=== PATIENT | female | born 1985 | race Caucasian/White ===

== ENCOUNTER 2017-07-24 07:30 | Emergency (ER) | payer OTHER ==
[2017-07-24 07:47] VITALS: BP 108/61
--- NOTE | 2017-07-24 08:09 | UC ---
Upper Extremity HPI - HPI Summary HPI Summary: PT WOKE UP THIS MORNING IN USUAL STATE OF HEALTH. WENT TO WORK AT 5AM. 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 NO LOC. ABOUT 30 MINUTES LATER RIGHT FOREARM WENT NUMB AND TINGLY. PT REPORTS SHE WAS UNABLE TO CARRY THINGS FOR CONCERN SHE WOULD DROP THEM. AT TIME OF EXAM LIGHTHEADEDNESS AND NAUSEA HAVE RESOLVED BUT RIGHT FOREARM PARESTHESIAS PERSIST. PT DENIES SOB OR CP. HAS HAD URI SX OF COUGH AND CHEST CONGESTION FOR ABOUT 3 WEEKS. - History of Current Complaint Chief Complaint: UCGeneralIllness Stated Complaint: ARM NUMBNESS Time Seen by Provider: 07/24/17 07:47 Hx Obtained From: Patient Hx Last Menstrual Period: 07/03/17 Onset/Duration: Sudden Onset, Lasting Hours, Still Present Severity Initially: Moderate Severity Currently: Moderate Pain Intensity: 0 Pain Scale Used: 0-10 Numeric Aggravating Factor(s): Nothing Alleviating Factor(s): Nothing Associated Signs And Symptoms: Positive: Weakness, Numbness/Tingling Related History: Dominant Hand Right - Allergies/Home Medications Allergies/Adverse Reactions: Allergies Allergy/AdvReac Type Severity Reaction Status Date / Time Bupropion [From Wellbutrin] Allergy Severe ANXIETY/PANIC Verified 07/24/17 07:37 ATTACK Azithromycin Allergy Intermediate Hives Verified 07/24/17 07:37 Ciprofloxacin [From Cipro] Allergy Unknown Unknown Verified 07/24/17 07:37 Reaction Details Adhesive Tape Allergy Rash Verified 07/24/17 07:37 PMH/Surg Hx/FS Hx/Imm Hx Previously Healthy: Yes Other History Of: Negative For: Anticoagulant Therapy - Surgical History Surgical History: Yes Surgery Procedure, Year, and Place: CHOLECYSTECTOMY 2007, APPENDECTOMY 1986, C- SECTIONS [id number],2014 LEFT ANKLE 1996 - Family History Known Family History: Positive: Cardiac Disease, Hypertension, Diabetes - Social History Alcohol Use: None Alcohol Amount: states that she has consumed 3 times, and something bad always happens. Substance Use Type: None Substance Use Comment - Amount & Last Used: "once in a while" Unsure of last time used Smoking Status (MU): Light Every Day Tobacco Smoker Amount Used/How Often: 1P/ 3days Have You Smoked in the Last Year: No - Immunization History Most Recent Influenza Vaccination: UNK Most Recent Tetanus Shot: UNK Most Recent Pneumonia Vaccination: UNK Review of Systems Constitutional: Negative Skin: Negative Respiratory: Negative Cardiovascular: Negative Gastrointestinal: Negative Neurovascular: Decreased Sensation Musculoskeletal: Decreased ROM Neurological: Weakness, Paresthesia, Numbness All Other Systems Reviewed And Are Negative: Yes Physical Exam Triage Information Reviewed: Yes Appearance: Well-Appearing, No Pain Distress, Well-Nourished, Obese Vital Signs: Initial Vital Signs Temp 98.1 F 07/24/17 07:38 Pulse 76 07/24/17 07:38 Resp 20 07/24/17 07:38 BP 108/61 07/24/17 07:38 Pulse Ox 100 07/24/17 07:38 Vital Signs Reviewed: Yes Eyes: Positive: Conjunctiva Clear ENT: Positive: Hearing grossly normal Neck: Positive: Supple Respiratory Exam: Normal Cardiovascular Exam: Normal Abdomen Description: Positive: Soft Musculoskeletal: Positive: No Edema, ROM Limited @ - RIGHT HAND - UNABLE TO FULLY FLEX OR EXTEND FINGERS Neurological: Positive: Alert, Other: - CN II-XII GROSSLY INTACT BILATERALLY. NEG PRONATOR DRIFT. FINGER TO NOSE INTACT BILATERALLY. HEEL TO SHANKAR INTACT BILATERALLY. RAPID ALTERNATING MVMTS INTACT. 4/5 STRENGTH IN RUE. POSITIVE TINELS AND PHALENS ON RIGHT. Psychological: Positive: Age Appropriate Behavior Skin: Negative: rashes Diagnostics - EKG Cardiac Rate: NL - 71 BPM Cardiac Rhythm: Sinus: Normal Ectopy: None ST Segment: Normal Upper Extremity Course/Dx - Course Course Of Treatment: EKG UNREMARKABLE. UNCLEAR ETIOLOGY OF SX. PT WITH POSITIVE TINEL AND PHALENS INDICATIVE OF CARPAL TUNNEL BUT GIVEN SUDDEN ONSET AND PERSISTENCE OF SX ALONG WITH ASSOCIATED N/V AND LIGHTHEADEDNESS WITH SEND TO ER FOR FURTHER EVAL. - Differential Dx/Diagnosis Provider Diagnoses: RUE PARESTHESIAS Discharge - Discharge Plan Condition: Stable Disposition: OTHER Discharge Disposition Comment: TO [facility] BY PRIVATE CAR Patient Education Materials: Paresthesia (ED) Referrals: Ronal Be MD [Primary Care Provider] - If Needed Additional Instructions: UNCLEAR ETIOLOGY OF YOUR SYMPTOMS. EKG UNREMARKABLE. GO DIRECTLY TO THE ER FROM HERE FOR FURTHER EVALUATION.
== END 2017-07-24 08:10 ==
LOC: UCEAST 07:30
DX: R20.2 Paresthesia of skin (principal); R11.2 Nausea with vomiting, unspecified; R53.1 Weakness; Z88.1 Allergy status to other antibiotic agents; Z90.49 Acquired absence of other specified parts of digestive tract; F17.210 Nicotine dependence, cigarettes, uncomplicated
CPT/HCPCS: 93005; 99212; G0463

== ENCOUNTER 2017-07-24 08:36 | Emergency (ER) | payer OTHER ==
[2017-07-24 09:26] LABS: Hematocrit 33 % (35-47); Hemoglobin 10.7 g/dl (12.0-16.0); Mean Corpuscular HGB Conc 32 g/dl (31-36); Mean Corpuscular Hemoglobin 27 pg (27-31); Mean Corpuscular Volume 85 fL (80-97); Mean Platelet Volume 9 um3 (7.4-10.4); Red Blood Count 3.92 10^6/ul (4.0-5.4); Red Cell Distribution Width 17 % (10.5-15); White Blood Count 7.6 10^3/ul (3.5-10.8)
[2017-07-24 09:44] LABS: Albumin 4.1 g/dL (3.2-5.2); BUN/Creatinine Ratio 18.3 (8-20); C Reactive Protein 3.55 mg/L (< 5.00); Calcium 9.1 mg/dL (8.6-10.3); EGFR African American 121.9 (>60); EGFR Non-African American 94.8 (>60); Globulin 3.1 g/dL (2-4); Potassium 4.2 mmol/L (3.5-5.0); Total Bilirubin 0.3 mg/dL (0.2-1.0); Total Protein 7.2 g/dL (6.4-8.9)
--- NOTE | 2017-07-24 10:03 | RAD ---
INDICATION: RIGHT upper extremity numbness and pain. COMPARISON: May 20, 2016 CT. TECHNIQUE: Multidetector CT images foramen magnum to lung apices without contrast. Multiplanar reformation. REPORT: Normal vertebral alignment accounting for exam positioning without spondylolisthesis or subluxation at any level. Negative for cervical vertebral body or posterior element fracture. 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 Negative for paravertebral hematoma. Preserved disc spaces throughout. No CT suggestion of acquired spinal stenosis. IMPRESSION: Negative CT of the cervical spine. No CT evidence for degenerative arthropathy or acquired spinal stenosis.
[2017-07-24 10:28] LABS: Urine Bacteria 1+ (Absent); Urine Bilirubin Negative (Negative); Urine Glucose Negative (Negative); Urine Nitrite Negative (Negative)
--- NOTE | 2017-07-24 10:53 | RAD ---
HISTORY: Right upper extremity weakness and numbness COMPARISONS: Head CT dated December 27, 2009 TECHNIQUE: The following sequences were obtained of the head: Sagittal T1-weighted images, axial T2-weighted images, axial FLAIR images, axial susceptibility weighted images, axial T1-weighted images. Additionally, axial diffusion-weighted images were obtained with calculated apparent diffusion coefficients. FINDINGS: HEMORRHAGE/INFARCT: There is no hemorrhage or acute infarct. MASSES/SHIFT: There is no mass or shift. EXTRA-AXIAL SPACES/MENINGES: There are no extra-axial fluid collections. SULCI AND VENTRICLES: The sulci and ventricles are normal in size and position for the patient's stated age. CEREBRUM: There are no focal parenchymal abnormalities. BRAINSTEM: There are no focal parenchymal abnormalities. CEREBELLUM: There are no focal parenchymal abnormalities. The cerebellar tonsils are normal in size and position. SELLA: The sella is normal. PINEAL: The pineal region is clear. CP ANGLE/TEMPORAL BONES: The labyrinthine structures are grossly normal. VESSELS: Normal flow-voids are noted within the visualized vertebral vasculature. DIFFUSION ABNORMALITIES: There are no diffusion abnormalities. PARANASAL SINUSES/MASTOIDS: The paranasal sinuses are clear. ORBITS: The orbits are unremarkable. BONES AND SOFT TISSUE: No bone or soft tissue abnormalities are noted. OTHER: None IMPRESSION: NORMAL BRAIN
[2017-07-24 11:27] VITALS: BP 109/57
--- NOTE | 2017-07-24 17:18 | CONS ---
CONSULTATION REPORT: DATE OF CONSULT: 07/24/17 - EMERGENCY DEPT PATIENT OF: Dr. Duron and Dr. Ronal Be. HISTORY OF PRESENT ILLNESS: This is a 31-year-old right-handed woman who, at 5 this morning, had an episode of vomiting and then further vomiting within an hour. She developed right-sided neck pain, and developed numbness and weakness in her right hand and forearm. The numbness was in the forearm to the hand in all dermatomes. The weakness was both with planer feeder, wrist extension, and finger spreading. She has had the neck pain, but no headache. No dizziness. No speech problems. No visual symptoms. She has had no prior stroke or other symptoms. PAST SURGICAL HISTORY: She has had in the past. MEDICATIONS: No medications at home. ALLERGIES: She is allergic to WELLBUTRIN, , and CIPRO, as well as ADHESIVE TAPE. SOCIAL HISTORY: She does not smoke, drink, or use drugs. REVIEW OF SYSTEMS: Negative in all 14 spheres other than the HPI. PHYSICAL EXAM: Temperature 98, pulse 71, respirations 17, blood pressure 109/ 57. She was alert and oriented with normal speech and comprehension. Fundi were benign. Cranial nerves II through XII intact. Motor exam shows 5/5 strength except in her right hand. She had 5-/5 wrist and finger adduction, 5-/ 5 abduction. Her planer feeder was inconsistent. She had a very strong planer feeder when I tried to pull away and it appeared full on the right hand, but when I tried to wiggle my fingers in her hand, she was quite loose. She had decreased sensation in nondermatomal distribution in her forearm and in all fingers of her right hand. Reflexes were 2 and equal downgoing toes. Chest: Clear. Cardiovascular: Regular rate and rhythm. Abdomen: Soft, with positive bowel sounds. DIAGNOSTIC STUDIES/LAB DATA: Hematocrit 33, white count 7.6, platelets are normal. Normal chemistries. UA had 2+ leuk esterase. She had an MRI scan, which was normal. CT scan of her C-spine, which was negative. IMPRESSION AND PLAN: I discussed with Dr. Duron that most likely she had neck pain following her vomiting from the force of the vomiting. This could have caused some of the neck pain going into her upper shoulder. It is possible that the weakness in her hand is secondary to that. She had some mild weakness in wrist and finger abduction, but there are some inconsistencies on exam as described with her planer feeder. The pain was not severe and her CT scan of her C-spine was negative, so she will be going home. The MRI scan had been obtained because it was conceivable that these were some stroke-like symptoms with vomiting indicating posterior fossa ischemia, since it occurred without fever, diarrhea, but the MRI scan was normal. No further workup needs to be done. In the pattern of her weakness flare, her planer feeder strength appeared intact, but she had difficulty with finger extension to a modest degree. This is more like a peripheral problem. I recommended that if her symptoms persist, I would see her in the near future and do an EEG at that time. Thank you for sharing her case. [id number]/GIOVANNA #: [id number] NAHID
--- NOTE | 2017-07-25 17:33 | ED ---
Prem Diaz Thomas, scribed for Aureliano Duron MD on 07/24/17 at 0908 . Complex/Multi-Sys Presentation - HPI Summary HPI Summary: The pt is a 31 y/o F referred from [facility] [place] c/o right arm numbness from her elbow down to her fingers that began today at 05:30. This numbness was intermittent from 05:30 and has been constant since 07:30. At 05:30, the patient had sudden- onset nausea and vomiting. She also complains of a sharp shooting pain on her right arm above her elbow and below her shoulder. The pt rates the pain 04/06. Pt additionally c/o neck pain. Pt denies near-syncope. At her job at [employer], she sometimes does repetitious movements with her hands. - History Of Current Complaint Hx Obtained From: Patient Onset/Duration: Lasting Hours - onset of numbness today at 05:30, Still Present Timing: Constant - since 07:30 Aggravating Factor(s): None. Alleviating Factor(s): None. Associated Signs And Symptoms: Positive: Other - Right arm numbness, nausea, vomitting, right arm pain, neck pain; NEGATIVE: near-syncope - Allergies/Home Medications Allergies/Adverse Reactions: Allergies Allergy/AdvReac Type Severity Reaction Status Date / Time Bupropion [From Wellbutrin] Allergy Severe ANXIETY/PANIC Verified 07/24/17 07:37 ATTACK Azithromycin Allergy Intermediate Hives Verified 07/24/17 07:37 Ciprofloxacin [From Cipro] Allergy Unknown Unknown Verified 07/24/17 07:37 Reaction Details Adhesive Tape Allergy Rash Verified 07/24/17 07:37 PMH/Surg Hx/FS Hx/Imm Hx Previously Healthy: No Endocrine/Hematology History: Denies: Hx Anticoagulant Therapy, Hx Diabetes, Hx Thyroid Disease Cardiovascular History: Denies: Hx Hypertension, Hx Pacemaker/ICD Respiratory History: Denies: Hx Asthma, Hx Chronic Obstructive Pulmonary Disease (COPD) GI History: Denies: Hx Ulcer History: Denies: Hx Renal Disease Sensory History: Denies: Hx Hearing Aid Neurological History: Denies: Hx Dementia, Hx Seizures Psychiatric History: Reports: Hx Anxiety - "just after miscarriage", Hx Depression - "I'm not depressed. I'm just overwhelmed and stressed out.", Hx Inpatient Treatment - [facility], Pending Sale To [facility] [place] [facility]. 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 [id number] - Surgical History Surgery Procedure, Year, and Place: CHOLECYSTECTOMY 2007, APPENDECTOMY 1986, C- SECTIONS ,2014 LEFT ANKLE 1996 - Immunization History Immunizations Up to Date: Yes Infectious Disease History: No Infectious Disease History: Denies: Hx Clostridium Difficile, Hx Hepatitis, Hx Human Immunodeficiency Virus (HIV), Hx of Known/Suspected MRSA, Hx Shingles, Hx Tuberculosis, Hx Known/ Suspected VRE, Hx Known/Suspected VRSA, History Other Infectious Disease, Traveled Outside the [place] in Last 30 Days - Family History Known Family History: Positive: Cardiac Disease, Hypertension, Diabetes, Other - CVA - Social History Alcohol Use: None Hx Substance Use: No Substance Use Type: Reports: None Hx Tobacco Use: Yes Smoking Status (MU): Light Every Day Tobacco Smoker Amount Used/How Often: 1P/ 3days Have You Smoked in the Last Year: No Review of Systems Negative: Fever Positive: Other - R arm pain, neck pain Neurological: Other - NEGATIVE: near-syncope Positive: Numbness - right arm numbness below elbow All Other Systems Reviewed And Are Negative: Yes Physical Exam - Summary Physical Exam Summary: VITAL SIGNS: Reviewed. GENERAL: Patient is a well-developed and nourished female who is lying comfortable in the stretcher. Patient is not in any acute respiratory distress. HEAD AND FACE: No signs of trauma. No ecchymosis, hematomas or skull depressions. No sinus tenderness. EYES: PERRLA, EOMI x 2, No injected conjunctiva, no nystagmus. No photophobia. EARS: Hearing grossly intact. Ear canals and tympanic membranes are within normal limits. MOUTH: Oropharynx within normal limits. NECK: Supple, trachea is midline, no adenopathy, no JVD, no carotid bruit, no c- spine tenderness, neck with full ROM. No meningeal signs, no Kernig's or brudzinskis signs. CHEST: Symmetric, no tenderness at palpation LUNGS: Clear to auscultation bilaterally. No wheezing or crackles. CVS: Regular rate and rhythm, S1 and S2 present, no murmurs or gallops appreciated. ABDOMEN: Soft, non-tender. No signs of distention. No rebound no guarding, and no masses palpated. Bowel sounds are normal. EXTREMITIES: FROM in all major joints, no edema, no cyanosis or clubbing. NEURO: Alert and oriented x 3. No acute neurological deficits. Speech is normal and follows commands. She has numbness on her right arm from the elbow to the hand. She is more numb on the dorsal aspect than the ventral aspect of the hand and forearm. She is weak in the right upper extremity. She has some tenderness in her neck. SKIN: Dry and warm GCS: 15 Triage Information Reviewed: Yes Vital Signs On Initial Exam: Initial Vitals Temp Pulse Resp BP Pulse Ox 98.9 F 79 20 132/76 100 07/24/17 08:38 07/24/17 08:38 07/24/17 08:38 07/24/17 08:38 07/24/17 08:38 Vital Signs Reviewed: Yes - [place] Coma Scale Coma Scale Total: 15 Diagnostics - Vital Signs Vital Signs Temp Pulse Resp BP Pulse Ox 07/24/17 08:38 98.9 F 79 20 132/76 100 - Laboratory Lab Results: Lab Results 07/24/17 07/24/17 07/24/17 Range/Units 09:05 09:05 10:03 WBC 7.6 (3.5-10.8) 10^3/ul RBC 3.92 L (4.0-5.4) 10^6/ul Hgb 10.7 L (12.0-16.0) g/dl Hct 33 L (35-47) % MCV 85 (80-97) fL MCH 27 (27-31) pg MCHC 32 (31-36) g/dl RDW 17 H (10.5-15) % Plt Count 322 (150-450) 10^3/ul MPV 9 (7.4-10.4) um3 Neut % (Auto) 64.9 (38-83) % Lymph % (Auto) 25.5 (25-47) % Putnam % (Auto) 7.6 (1-9) % Eos % (Auto) 1.4 (0-6) % Baso % (Auto) 0.6 (0-2) % Absolute Neuts (auto) 4.9 (1.5-7.7) 10^3/ul Absolute Lymphs (auto) 1.9 (1.0-4.8) 10^3/ul Absolute Monos (auto) 0.6 (0-0.8) 10^3/ul Absolute Eos (auto) 0.1 (0-0.6) 10^3/ul Absolute Basos (auto) 0 (0-0.2) 10^3/ul Absolute Nucleated RBC 0 10^3/ul Nucleated RBC % 0 Sodium 133 (133-145) mmol/L Potassium 4.2 (3.5-5.0) mmol/L Chloride 101 (101-111) mmol/L Carbon Dioxide 26 (22-32) mmol/L Anion Gap 6 (2-11) mmol/L BUN 13 (6-24) mg/dL Creatinine 0.71 (0.51-0.95) mg/dL Est GFR ( Amer) 121.9 (>60) Est GFR (Non-Af Amer) 94.8 (>60) BUN/Creatinine Ratio 18.3 (8-20) Glucose 103 H (70-100) mg/dL Calcium 9.1 (8.6-10.3) mg/dL Total Bilirubin 0.30 (0.2-1.0) mg/dL AST 10 L (13-39) U/L ALT 10 (7-52) U/L Alkaline Phosphatase 59 (34-104) U/L C-Reactive Protein 3.55 (< 5.00) mg/L Total Protein 7.2 (6.4-8.9) g/dL Albumin 4.1 (3.2-5.2) g/dL Globulin 3.1 (2-4) g/dL Albumin/Globulin Ratio 1.3 (1-3) Urine Color Yellow Urine Appearance Cloudy Urine pH 6.0 (5-9) Ur Specific Lawn 1.012 (1.010-1.030) Urine Protein Negative (Negative) Urine Ketones Negative (Negative) Urine Blood 1+ H (Negative) Urine Nitrate Negative (Negative) Urine Bilirubin Negative (Negative) Urine Urobilinogen Negative (Negative) Ur Leukocyte Esterase 2+ H (Negative) Urine WBC (Auto) Trace(0-5/hpf) (Absent) Urine RBC (Auto) Trace(0-2/hpf) (Absent) Ur Squamous Epith Cells Present H (Absent) Urine Bacteria 1+ H (Absent) Urine Glucose Negative (Negative) Result Diagrams: 07/24/17 09:05 07/24/17 09:05 Lab Statement: Any lab studies that have been ordered have been reviewed, and results considered in the medical decision making process. - CT CT C-Spine CT Interpretation: No Acute Changes - Negative CT of the cervical spine. No CT evidence for degenerative arthropathy or acquired spinal stenosis. ED Physician has reviewed this report and agrees. CT Interpretation Completed By: Radiologist - Additional Comments Diagnostic Additional Comments: MRI Brain without contrast. Interpreted by radiologist. Impression: normal brain. ED physician has read this report and agrees. Complex Multi-Symp Course/Dx Assessment/Plan: The pt is a 31 y/o F referred from [facility] [place] c/o right arm numbness from her elbow down to her fingers that began today at 05:30. This numbness was intermittent from 05:30 and has been constant since 07:30. At 05:30, the patient had sudden-onset nausea and vomiting. She also complains of a sharp shooting pain on her right arm above her elbow and below her shoulder. The pt rates the pain 7/10. Pt additionally c/o neck pain. Pt denies near-syncope. At her job at [employer], she sometimes does repetitious movements with her hands. After the patients physical exam, I discussed the case with Dr. Cole, who came to the ED to examine the patient. After his exam, he recommends that the patient get a CT C-Spine and MRI Brain without contrast. Both the CT C-Spine and the MRI Brain are negative. At this point, Dr. Cole recommends that the patient be discharged home with follow up at his office for possible EMG and further imaging. At this point, the neurological exam before discharge is normal ; therefore, the patient will be discharged home with follow up by primary care provider and neurology. The patient understands and agrees. - Diagnoses Differential Diagnoses/HQI/PQRI: Cardiac Ischemia, CVA, Other - TIA, SCS Provider Diagnoses: Paresthesia - Physician Notifications Discussed Care Of Patient With: Nic Cole Time Discussed With Above Provider: 09:05 Instructed by Provider To: Other - I consulted with Dr. Cole, neurology, regarding patient care. He came to the emergency department to evaluate the patient. After his evaluation, he recommends a CT C-Spine and MRI of the brain. Discharge - Discharge Plan Condition: Stable Disposition: HOME Patient Education Materials: Paresthesia (ED) Referrals: Nic Cole MD [Medical Doctor] - 3 Days Additional Instructions: Follow up with Dr. Cole, neurology, in three days. Return to the emergency department for any new or worsening symptoms. The documentation as recorded by the Prem ca Thomas accurately reflects the service I personally performed and the decisions made by , Aureliano Duron MD.
== END 2017-07-24 11:33 | disposition home or self-care (01) ==
LOC: ED 08:36
DX: R20.2 Paresthesia of skin (principal); F17.210 Nicotine dependence, cigarettes, uncomplicated
CPT/HCPCS: 36415; 70551; 72125; 80053; 81003; 81015; 85025; 86140; 87086; 99282

== ENCOUNTER 2017-08-22 09:43 | Emergency (ER) | payer OTHER ==
[2017-08-22 12:30] VITALS: BP 129/80
--- NOTE | 2017-08-22 15:16 | UC ---
Octaviano Diaz Angela, scribed for Maggi Norman DO on 08/22/17 at 1150 . General HPI - HPI Summary HPI Summary: This pt is a 31 y/o female presenting to [facility] c/o body aches, shaking chills, abd pain, vomiting, and diarrhea x2 days (since 08/20/17). Pt states "my whole body hurts," specially on her head, neck, legs. She rates her pain 7/ 10 in severity. She reports she has not been able to get warm. Pt notes she had a fever on and Thursday, maximum of 102F. She notes she has had approximately 4 episodes of emesis since 2 days ago, non-bloody. Yesterday, she had green emesis. Pt has had 4 episodes/day of diarrhea since onset. At onset, pt notes she had terrible smelling diarrhea. She describes her abd pain as if someone is "twisting my gut right in the center." Pt states her abd pain is aggravated by eating. Yesterday, she reports she had kidney pain on the right side. She denies sore throat, cough, rhinorrhea, sinus congestion, ear ache, dysuria, frequency, urinary symptoms. She has been drinking fluids. Pt is currently on her period. PSHx includes appendectomy, cholecystectomy. Pt has had the flu years ago. Pt is a current smoker. - History of Current Complaint Chief Complaint: UCGeneralIllness Stated Complaint: BODY ACHE,DIARRHEA Time Seen by Provider: 08/22/17 11:32 Hx Obtained From: Patient Hx Last Menstrual Period: 08/21/17 Onset/Duration: Lasting Days, Still Present Onset Severity: Moderate Current Severity: Moderate Associated Signs & Symptoms: Positive: Abdominal Pain, Back Pain - flank pain yesterday, Diarrhea, Decreased Oral Intake, Fever, Nausea, Vomiting, Other - POS : body aches, chills, kidey pain. NEG: sore throat, rhinorrhea, sinus congestion , ear ache, dysuria, frequency, urinary symptoms.. Negative: Cough, Dizziness, Dysuria, Headache, SOB - Allergy/Home Medications Allergies/Adverse Reactions: Allergies Allergy/AdvReac Type Severity Reaction Status Date / Time Bupropion [From Wellbutrin] Allergy Severe ANXIETY/PANIC Verified 08/22/17 13:36 ATTACK Azithromycin Allergy Intermediate Hives Verified 08/22/17 13:36 Ciprofloxacin [From Cipro] Allergy Unknown Unknown Verified 08/22/17 13:36 Reaction Details Adhesive Tape Allergy Rash Verified 08/22/17 13:36 PMH/Surg Hx/FS Hx/Imm Hx Previously Healthy: Yes Other Endocrine History: DENIES: diabetes Other Cardiovascular History: DENIES: HTN Other History Of: Negative For: Anticoagulant Therapy - Surgical History Surgical History: Yes Surgery Procedure, Year, and Place: CHOLECYSTECTOMY 2007, APPENDECTOMY 1986, C- SECTIONS [id number],2013 LEFT ANKLE 1996 - Family History Known Family History: Positive: Cardiac Disease, Hypertension, Diabetes, Other - CVA - Social History Lives: With Family Alcohol Use: None Alcohol Amount: states that she has consumed 3 times, and something bad always happens. Substance Use Type: None Substance Use Comment - Amount & Last Used: "once in a while" Unsure of last time used Smoking Status (MU): Light Every Day Tobacco Smoker Amount Used/How Often: 1P/ 3days Have You Smoked in the Last Year: No Cessation Counseling: Patient Advised to Stop - Immunization History Most Recent Influenza Vaccination: UNK Most Recent Tetanus Shot: UNK Most Recent Pneumonia Vaccination: UNK Review of Systems Constitutional: Fever, Chills - shaking, Other - body aches Skin: Negative Eyes: Negative ENT: Negative Respiratory: Negative Cardiovascular: Negative Gastrointestinal: Abdominal Pain, Vomiting, Diarrhea, Nausea Genitourinary: Other - POS: right sided kidney pain. NEG: dysuria, urinary frequency, urinary symptoms. Motor: Negative Neurovascular: Negative Musculoskeletal: Myalgia Neurological: Negative Psychological: Negative All Other Systems Reviewed And Are Negative: Yes Physical Exam Triage Information Reviewed: Yes Appearance: Well-Appearing, No Pain Distress, Ill-Appearing - mild to mod Vital Signs: Initial Vital Signs Temp 98.4 F 08/22/17 09:51 Pulse 78 08/22/17 09:51 Resp 20 08/22/17 09:51 BP 138/66 08/22/17 09:51 Pulse Ox 100 08/22/17 09:51 Vital Signs Reviewed: Yes Eyes: Positive: Conjunctiva Clear. Negative: Discharge ENT: Positive: Hearing grossly normal, TMs normal. Negative: Tonsillar swelling , Tonsillar exudate, Trismus, Muffled voice, Hoarse voice, Sinus tenderness Neck exam: Normal Neck: Positive: Supple Respiratory: Positive: Lungs clear, Normal breath sounds, No respiratory distress, No accessory muscle use Cardiovascular: Positive: RRR, No Murmur Abdomen Description: Positive: Soft, Other: - abdomen is diffusely tender worse in the periumbilical area and lower abd.. Negative: CVA Tenderness (R), CVA Tenderness (L), Distended, Guarding, McBurney's Point Tenderness Bowel Sounds: Positive: Present Musculoskeletal Exam: Normal Neurological: Positive: Alert, Muscle Tone Normal Psychological Exam: Normal Psychological: Positive: Age Appropriate Behavior Skin Exam: Normal, Other - warm, dry, normal color Course/Dx - Course Course Of Treatment: Medications reviewed this visit. High blood pressure noted likely due to pts condition. Urine dip shows urine color red, 2+ urine protein , trace ketones, 3+ blood, positive nitrite, 1+ bilirubin, trace leukocyte. Rapid influenza A and B are negative. test is negative. - Differential Dx - Multi-Symptom Provider Diagnoses: Kidney infection Discharge - Discharge Plan Condition: Stable Disposition: HOME Patient Education Materials: Kidney Stones (ED), Kidney Infection (ED) Referrals: Ronal Be MD [Primary Care Provider] - Additional Instructions: WE BELIEVE YOU NEED FURTHER EVALUATION TO RULE OUT A KIDNEY STONE BEFORE WE CAN SAFELY SEND YOU HOME. WE DO NOT HAVE A CT SCAN CAPABILITY HERE TODAY. SO WE ARE RECOMMENDING THAT YOU GO TO THE ED IMMEDIATELY FOR THIS EVALUATION. THERE, THEY WILL ALSO TREAT YOU FOR KIDNEY INFECTION. Your blood pressure was elevated at this visit, 129/80. That does not mean you have hypertension, it is probably due to your current condition. Please follow up with your primary care provider The documentation as recorded by the Octaviano ca Angela accurately reflects the service I personally performed and the decisions made by me, Maggi Norman DO.
--- NOTE | 2017-08-24 19:45 | UC ---
Progress - Progress Note Progress Note: Pt with neg urine culture final no change Reji 08/24/17
== END 2017-08-22 13:03 | disposition home or self-care (01) ==
LOC: UCEAST 09:43
DX: N15.9 Renal tubulo-interstitial disease, unspecified (principal)
CPT/HCPCS: 81003; 81025; 87086; 87502; 99212; G0463

== ENCOUNTER → 2017-08-22 13:31 | Emergency (ER) | payer OTHER | END | disposition home or self-care (01) | LOC: ED 13:31 | DX: R10.9 Unspecified abdominal pain (principal); Z53.21 Procedure and treatment not carried out due to patient leaving prior to being seen by health care provider | CPT/HCPCS: 99281 ==

== ENCOUNTER 2017-10-09 10:24 | Emergency (ER) | payer OTHER ==
[2017-10-09 13:10] VITALS: BP 122/62
--- NOTE | 2017-10-09 14:01 | UC ---
Throat Pain/Nasal Chris HPI - HPI Summary HPI Summary: Pt c/o sudden onset of ST, GRANDE, stomach upset diarrhea X 1 and generalized malaise X 2 days. - History of Current Complaint Chief Complaint: UCRespiratory Stated Complaint: ST/GRANDE/NAUSEA Time Seen by Provider: 10/09/17 13:18 Hx Obtained From: Patient Hx Last Menstrual Period: 10/08/17 ?: No Onset/Duration: Sudden Onset, Lasting Days, Still Present, Worse Since - onset Severity: Moderate Cough: None Associated Signs & Symptoms: Positive: Dysphagia Related History: Smoking - Allergies/Home Medications Allergies/Adverse Reactions: Allergies Allergy/AdvReac Type Severity Reaction Status Date / Time Bupropion [From Wellbutrin] Allergy Severe ANXIETY/PANIC Verified 10/09/17 13:10 ATTACK Azithromycin Allergy Intermediate Hives Verified 10/09/17 13:10 Ciprofloxacin [From Cipro] Allergy Unknown Unknown Verified 10/09/17 13:10 Reaction Details Adhesive Tape Allergy Rash Verified 10/09/17 13:10 PMH/Surg Hx/FS Hx/Imm Hx Previously Healthy: Yes Other History Of: Negative For: Anticoagulant Therapy - Surgical History Surgical History: Yes Surgery Procedure, Year, and Place: CHOLECYSTECTOMY 2007, APPENDECTOMY 1986, C- SECTIONS [id number],2014 LEFT ANKLE 1996 - Family History Known Family History: Positive: Cardiac Disease, Hypertension, Diabetes, Other - CVA - Social History Occupation: Employed Full-time Lives: With Family Alcohol Use: None Alcohol Amount: states that she has consumed 3 times, and something bad always happens. Substance Use Type: None Substance Use Comment - Amount & Last Used: "once in a while" Unsure of last time used Smoking Status (MU): Light Every Day Tobacco Smoker Amount Used/How Often: 1P/ 3days Have You Smoked in the Last Year: Yes - Immunization History Most Recent Influenza Vaccination: UNK Most Recent Tetanus Shot: UNK Most Recent Pneumonia Vaccination: UNK Review of Systems Constitutional: Chills, Fatigue Skin: Negative Eyes: Negative ENT: Sore Throat Respiratory: Negative Cardiovascular: Negative Gastrointestinal: Vomiting, Nausea Genitourinary: Negative Motor: Negative Neurovascular: Negative Musculoskeletal: Negative Neurological: Negative Psychological: Negative Is Patient Immunocompromised?: No All Other Systems Reviewed And Are Negative: Yes Physical Exam Triage Information Reviewed: Yes Appearance: Ill-Appearing Vital Signs: Initial Vital Signs Temp 98.5 F 10/09/17 13:07 Pulse 76 10/09/17 13:07 Resp 16 10/09/17 13:07 BP 122/62 10/09/17 13:07 Pulse Ox 99 10/09/17 13:07 Vital Signs Reviewed: Yes Eye Exam: Normal ENT Exam: Other ENT: Positive: Pharyngeal erythema Dental Exam: Normal Neck exam: Normal Respiratory Exam: Normal Cardiovascular Exam: Normal Abdominal Exam: Normal Musculoskeletal Exam: Normal Neurological Exam: Normal Psychological Exam: Normal Skin Exam: Normal Throat Pain/Nasal Course/Dx - Differential Dx/Diagnosis Differential Diagnosis/HQI/PQRI: Influenza, URI, Other - viral syndrome Provider Diagnoses: viral syndrome. nausea and vomiting. sore throat Discharge - Discharge Plan Condition: Stable Disposition: HOME Prescriptions: Ondansetron HCl [Zofran 8 MG TAB] 8 mg PO Q8H PRN #15 tab PRN Reason: Nausea Patient Education Materials: Acute Nausea and Vomiting (ED), Viral Syndrome (ED ) Referrals: No Primary Care Phys,NOPCP [Primary Care Provider] - If Needed
[2017-10-09] MEDS ORDERED: Ondansetron ODT TAB* 4 MG PO ONE (14:07)
== END 2017-10-09 14:34 | disposition home or self-care (01) ==
LOC: UCCORT 10:24
DX: B34.9 Viral infection, unspecified (principal); R11.2 Nausea with vomiting, unspecified; J02.9 Acute pharyngitis, unspecified; Z88.3 Allergy status to other anti-infective agents; Z91.048 Other nonmedicinal substance allergy status
CPT/HCPCS: 87651; 99212; A9270-GY; G0463

== ENCOUNTER 2017-11-03 15:06 | Emergency (ER) | payer OTHER ==
[2017-11-03 18:01] VITALS: BP 121/68
--- NOTE | 2017-11-03 18:24 | UC ---
Throat Pain/Nasal Chris HPI - HPI Summary HPI Summary: Mom with GRANDE since yesterday sore throat x 24 hours child x 2 with strep throat + fever tactile, + nausea, no vomiting no diarrhea no ear pain, no sinus pain + la gland pain LMP current + APAP with little relief + po today - mac and cheese Pt's medication reviewed this visit - History of Current Complaint Chief Complaint: UCGeneralIllness Stated Complaint: ST,GRANDE (STREP EXPOSURE) Time Seen by Provider: 11/03/17 18:23 Hx Obtained From: Patient Hx Last Menstrual Period: 11/03/17 Onset/Duration: Gradual Onset Pain Intensity: 7 Pain Scale Used: 0-10 Numeric Cough: Nonproductive Associated Signs & Symptoms: Positive: Fever - Allergies/Home Medications Allergies/Adverse Reactions: Allergies Allergy/AdvReac Type Severity Reaction Status Date / Time MS Bupropion Allergy Severe ANXIETY/PANIC Verified 11/03/17 18:01 [From Wellbutrin] ATTACK MS Azithromycin Allergy Intermediate Hives Verified 11/03/17 18:01 [Azithromycin] MS Ciprofloxacin [From Cipro] Allergy Unknown Unknown Verified 11/03/17 18:01 Reaction Details Adhesive Tape Allergy Rash Verified 11/03/17 18:01 PMH/Surg Hx/FS Hx/Imm Hx Other History Of: Negative For: Anticoagulant Therapy - Surgical History Surgical History: Yes Surgery Procedure, Year, and Place: CHOLECYSTECTOMY 2007, APPENDECTOMY 1986, C- SE[facility] [id number],2014 LEFT ANKLE 1996 - Family History Known Family History: Positive: Cardiac Disease, Hypertension, Diabetes, Other - CVA - Social History Occupation: Employed Full-time Lives: With Family Alcohol Use: Rare Alcohol Amount: states that she has consumed 3 times, and something bad always happens. Substance Use Type: None Substance Use Comment - Amount & Last Used: "once in a while" Unsure of last time used Smoking Status (MU): Light Every Day Tobacco Smoker Amount Used/How Often: 1P/ 3days Have You Smoked in the Last Year: Yes - Immunization History Most Recent Influenza Vaccination: UNK Most Recent Tetanus Shot: UNK Most Recent Pneumonia Vaccination: UNK Review of Systems Constitutional: Fever ENT: Sore Throat, Nasal Discharge, Sinus Congestion All Other Systems Reviewed And Are Negative: Yes Physical Exam Triage Information Reviewed: Yes Appearance: Well-Appearing, No Pain Distress, Well-Nourished Vital Signs: Initial Vital Signs Temp 99.5 F 11/03/17 17:56 Pulse 87 11/03/17 17:56 Resp 17 11/03/17 17:56 BP 121/68 11/03/17 17:56 Pulse Ox 99 11/03/17 17:56 Vital Signs Reviewed: Yes Eye Exam: Normal Eyes: Positive: Conjunctiva Clear ENT: Positive: Hearing grossly normal, Pharyngeal erythema, Nasal congestion, Tonsillar exudate, Uvula midline. Negative: TM red, Tonsillar swelling Dental Exam: Normal Neck: Positive: Supple, No Lymphadenopathy - submandicular R>L Respiratory Exam: Normal Respiratory: Positive: Chest non-tender, Lungs clear, Normal breath sounds, No respiratory distress, No accessory muscle use Cardiovascular Exam: Normal Cardiovascular: Positive: RRR, No Murmur Abdominal Exam: Normal Abdomen Description: Positive: Nontender, No Organomegaly, Soft Bowel Sounds: Positive: Present Musculoskeletal Exam: Normal Musculoskeletal: Positive: Strength Intact Neurological Exam: Normal Neurological: Positive: Alert Psychological Exam: Normal Skin Exam: Normal Throat Pain/Nasal Course/Dx - Course Course Of Treatment: mom with exudative pharyngitis. 2 sons with strep. mom with neg strep. will treat presumptively. amox. motrin/apap. gargle. secretion precaution. mom comfortable and in agreement with plan - Differential Dx/Diagnosis Provider Diagnoses: strep pharyngitis Discharge - Discharge Plan Condition: Stable Disposition: HOME Prescriptions: Acetaminophen TAB* [Tylenol TAB*] 325 mg PO Q6HR #30 tab Amoxicillin PO (*) [Amoxicillin 875 MG (*)] 875 mg PO BID #20 tab Patient Education Materials: Pharyngitis (ED) Forms: *Work Release Referrals: Ronal Be MD [Primary Care Provider] - Additional Instructions: - Stay well hydrated. Drink plenty of non-alcoholic, non-caffinated beverages. - Alternate ibuprofen (Advil, Motrin) 600mg and Tylenol every 3 hours for pain or fever. Take with food. Do NOT take for more than 4-5 days. - These infections are spread by secretions - do NOT share eating or drinking utensils - clean items you share with other people such as cell phones, computer mouse, TV remote, computer tablets, etc. After you have taken antibiotics x 2 days, change your toothbrush and your pillowcase. - humidify the air in the room where you sleep - boil water, run a hot steam shower, vaporizer, cups of water by heat register - get plenty of restful sleep. - contact your doctor or return with questions or concerns
== END 2017-11-03 18:51 | disposition home or self-care (01) ==
LOC: UCCORT 15:06
DX: J02.0 Streptococcal pharyngitis (principal); F17.210 Nicotine dependence, cigarettes, uncomplicated
CPT/HCPCS: 87651; 99212; G0463

== ENCOUNTER 2017-11-05 12:23 | Emergency (ER) | payer OTHER ==
[2017-11-05 16:23] VITALS: BP 129/73
[2017-11-05] MEDS ORDERED: Metoclopramide TAB* 10 MG PO ONE (16:28)
[2017-11-05] MEDS ORDERED: Ketorolac INJ* 60 MG/2 ML VIAL IM ONE (16:33)
--- NOTE | 2017-11-05 16:38 | ED ---
Influenza-Like Illness - HPI Summary HPI Summary: 31F presents with sore throat for past 4 days. She states she was placed on amoxicillin but sore throat is not getting better. She states she has been develop fever and body aches for past two days. She states that she has had a headache for past 24 hours. She states this is different that her migraine headaches but is not the worst headache of her life. Tylenol is not helping much. She denies any sinus pressure. She denies any neck stiffness or photophobia. she admits to nausea and vomiting. She denies any abdominal pain or diarrhea. - History of Current Complaint Chief Complaint: UCRespiratory Time Seen by Provider: 11/05/17 16:27 - Allergy/Home Medications Allergies/Adverse Reactions: Allergies Allergy/AdvReac Type Severity Reaction Status Date / Time Adhesive Tape Allergy Rash Verified 11/05/17 16:17 azithromycin Allergy Hives Verified 11/05/17 16:17 bupropion [From Wellbutrin] Allergy See Comment Verified 11/05/17 16:17 ciprofloxacin Allergy Unknown Verified 11/05/17 16:17 Reaction Details Home Medications: Home Medications Acetaminophen TAB* [Tylenol TAB*] 650 mg PO Q6HR 11/05/17 [History Confirmed 05/15] PMH/Surg Hx/FS Hx/Imm Hx Endocrine/Hematology History: Denies: Hx Anticoagulant Therapy, Hx Diabetes, Hx Thyroid Disease Cardiovascular History: Denies: Hx Hypertension, Hx Pacemaker/ICD Respiratory History: Denies: Hx Asthma, Hx Chronic Obstructive Pulmonary Disease (COPD) GI History: Denies: Hx Ulcer History: Denies: Hx Renal Disease Sensory History: Denies: Hx Hearing Aid Neurological History: Denies: Hx Dementia, Hx Seizures Psychiatric History: Reports: Hx Anxiety - "just after miscarriage", Hx Depression - "I'm not depressed. I'm just overwhelmed and stressed out.", Hx [place] [facility] [facility] - [facility]. 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 C -SECTIONS ,2014. LEFT ANKLE 1996 Infectious Disease History: Yes Infectious Disease History: Reports: Hx Clostridium Difficile, Hx of Known/ Suspected MRSA Denies: Hx Hepatitis, Hx Human Immunodeficiency Virus (HIV), Hx Shingles, Hx Tuberculosis, Hx Known/Suspected VRE, Hx Known/Suspected VRSA, History Other Infectious Disease, Traveled Outside the [place] in Last 30 Days - Family History Known Family History: Positive: Cardiac Disease, Hypertension, Diabetes, Other - CVA - Social History Alcohol Use: Rare Alcohol Amount: states that she has consumed 3 times, and something bad always happens. Hx Substance Use: No Substance Use Type: Reports: None Substance Use Comment - Amount & Last Used: "once in a while" Unsure of last time used Hx Tobacco Use: Yes Smoking Status (MU): Light Every Day Tobacco Smoker Amount Used/How Often: 1/3 PPD Have You Smoked in the Last Year: Yes Review of Systems Positive: Fever Positive: Sore Throat, Nasal Discharge. Negative: Ear Ache Negative: Chest Pain Positive: Cough. Negative: Shortness Of Breath Positive: Vomiting, Nausea. Negative: Abdominal Pain, Diarrhea Positive: Headache All Other Systems Reviewed And Are Negative: Yes Physical Exam Triage Information Reviewed: Yes Vital Signs On Initial Exam: Initial Vitals Temp Pulse Resp BP Pulse Ox 99.2 F 77 16 129/73 99 11/05/17 16:17 11/05/17 16:17 11/05/17 16:17 11/05/17 16:17 11/05/17 16:17 Vital Signs Reviewed: Yes Appearance: Positive: Well-Appearing Skin: Positive: Warm, Dry Head/Face: Positive: Normal Head/Face Inspection Eyes: Positive: Normal, EOMI, ISIDORO, Conjunctiva Clear ENT: Positive: Pharyngeal erythema, TMs normal, Uvula midline, Other - soft palate symmetric. Negative: Tonsillar swelling, Tonsillar exudate, Trismus, Muffled voice Neck: Positive: Supple, Nontender, Enlarged Nodes @ - cervical. Negative: Nuchal Rigidity Respiratory/Lung Sounds: Positive: Clear to Auscultation, Breath Sounds Present Cardiovascular: Positive: Normal, RRR Abdomen Description: Positive: Nontender, Soft Bowel Sounds: Positive: Present Musculoskeletal: Positive: Normal Neurological: Positive: Normal Psychiatric: Positive: Normal Diagnostics - Vital Signs Vital Signs Temp Pulse Resp BP Pulse Ox 11/05/17 16:17 99.2 F 77 16 129/73 99 - Laboratory Lab Statement: Any lab studies that have been ordered have been reviewed, and results considered in the medical decision making process. Flu Symptom Course/Dx - Course Course Of Treatment: 31F presents with sore throat for past 4 days. She states she was placed on amoxicillin but sore throat is not getting better. She states she has been develop fever and body aches for past two days. She states that she has had a headache for past 24 hours. She states this is different that her migraine headaches but is not the worst headache of her life. Tylenol is not helping much. She denies any sinus pressure. She denies any neck stiffness or photophobia. she admits to nausea and vomiting. She denies any abdominal pain or diarrhea. on exam pharynx erythematous uvula midline soft palate symmetric. lungs CTA. abdomen soft nontender. gave reglan and toradol for headache feeling better. flu negative. will treat supporatively with reglan. patient understand and agrees with plan. - Diagnoses Differential Diagnosis/HQI/PQRI: Positive: Influenza, Upper Respiratory Infection, Other - gastroenteritis Provider Diagnoses: Vomiting, Pharyngitis Discharge - Discharge Plan Condition: Good Disposition: HOME Prescriptions: Magic Mouth Was-DERRICK/MAAL/LIDO* 5 ml SWISH SPIT QID #100 ml Metoclopramide TAB* [Reglan TAB*] 10 mg PO Q6H PRN #16 tab PRN Reason: Nausea Patient Education Materials: Pharyngitis (ED), Acute Nausea and Vomiting (ED) Forms: *Work Release Referrals: Ronal Be MD [Primary Care Provider] - Additional Instructions: Magic mouthwash 5ml swish and spit can use 4x a day Take reglan every 6 hours for nausea Take Tylenol or ibuprofen for pain every 6 hours Can gargle salt water Can use cough drops or products such as cloraseptic spray Follow up with primary within 7 days Return to ED if develop fever does not respond to Tylenol or ibuprofen, inability to swallow, or difficulty breathing or any new or worsening symptoms
== END 2017-11-05 17:23 | disposition home or self-care (01) ==
LOC: UCCORT 12:23
DX: R11.2 Nausea with vomiting, unspecified (principal); J02.9 Acute pharyngitis, unspecified; R50.9 Fever, unspecified; R09.81 Nasal congestion; R05 Cough; R51 Headache; F41.9 Anxiety disorder, unspecified; F32.9 Major depressive disorder, single episode, unspecified; Z90.49 Acquired absence of other specified parts of digestive tract; Z88.1 Allergy status to other antibiotic agents; Z88.8 Allergy status to other drugs, medicaments and biological substances; Z91.048 Other nonmedicinal substance allergy status; F17.210 Nicotine dependence, cigarettes, uncomplicated
CPT/HCPCS: 87502; 96372; 99212; A9270-GY; G0463; J1885

== ENCOUNTER 2018-07-26 17:44 | Emergency (ER) | payer OTHER ==
[2018-07-26 18:34] VITALS: BP 137/86
--- NOTE | 2018-07-26 18:41 | UC ---
Throat Pain/Nasal Chris HPI - HPI Summary HPI Summary: 32 yo female presents with sinus congestion, sore throat, fatigue, body ache, and dry cough for 2 days. She left work early today due to illness. Has not been taking anything OTC. Denies fever, SOB, chest pain, abdominal pain, n/v - History of Current Complaint Chief Complaint: UCGeneralIllness Stated Complaint: ST/CONGESTION/COUGH Time Seen by Provider: 07/26/18 18:40 Hx Obtained From: Patient Hx Last Menstrual Period: 07/20/18 Severity: Moderate Pain Intensity: 8 Pain Scale Used: 0-10 Numeric - Allergies/Home Medications Allergies/Adverse Reactions: Allergies Allergy/AdvReac Type Severity Reaction Status Date / Time Adhesive Tape Allergy Rash Verified 07/26/18 18:34 azithromycin Allergy Hives Verified 07/26/18 18:34 bupropion [From Wellbutrin] Allergy See Comment Verified 07/26/18 18:34 ciprofloxacin Allergy Unknown Verified 07/26/18 18:34 Reaction Details Home Medications: Home Medications NK [No Home Medications Reported] 07/26/18 [History Confirmed 07/26/18] PMH/Surg Hx/FS Hx/Imm Hx - Additional Past Medical History Additional PMH: None Other History Of: Negative For: Anticoagulant Therapy - Surgical History Surgical History: Yes Surgery Procedure, Year, and Place: CHOLECYSTECTOMY 2007, APPENDECTOMY 1986,. [facility] -SECTIONS 4707-2529,2014. LEFT ANKLE 1996 - Family History Known Family History: Positive: Cardiac Disease, Hypertension, Diabetes, Other - CVA - Social History Occupation: Employed Full-time Lives: With Family Alcohol Use: Rare Alcohol Amount: states that she has consumed 3 times, and something bad always happens. Substance Use Type: None Substance Use Comment - Amount & Last Used: "once in a while" Unsure of last time used Smoking Status (MU): Light Every Day Tobacco Smoker Amount Used/How Often: 1/3 PPD Have You Smoked in the Last Year: Yes - Immunization History Most Recent Influenza Vaccination: UNK Most Recent Tetanus Shot: UNK Most Recent Pneumonia Vaccination: UNK Review of Systems Constitutional: Fatigue, Other - Body aches Skin: Negative Eyes: Negative ENT: Sore Throat, Nasal Discharge Respiratory: Cough Cardiovascular: Negative Gastrointestinal: Negative Neurovascular: Negative Musculoskeletal: Negative Neurological: Headache Psychological: Negative All Other Systems Reviewed And Are Negative: Yes Physical Exam - Summary Physical Exam Summary: GENERAL: NAD. WDWN. No pain distress. SKIN: No rashes, sores, lesions, or open wounds. HEENT: Head: AT/NC Eyes: EOM intact. Conjunctiva clear without inflammation or discharge. Ears: Hearing grossly normal. TMs intact, no bulging, erythema, or edema. Nose: Nasal mucosa pink and moist. NTTP maxillary and frontal sinus. Throat: Posterior oropharynx without exudates, erythema, or tonsillar enlargement. Uvula midline. NECK: Supple. Nontender. No lymphadenopathy. CHEST: CTAB. No r/r/w. No accessory muscle use. Breathing comfortably and in no distress. CV: RRR. Without m/r/g. Pulses intact. Cap refill <2seconds NEURO: Alert. PSYCH: Age appropriate behavior. Triage Information Reviewed: Yes Vital Signs: Initial Vital Signs Temp 98.8 F 07/26/18 18:28 Pulse 88 07/26/18 18:28 Resp 18 07/26/18 18:28 BP 137/86 07/26/18 18:28 Pulse Ox 98 07/26/18 18:28 Vital Signs Reviewed: Yes Throat Pain/Nasal Course/Dx - Course Course Of Treatment: Suspect viral illness. Advised to try tylenol/ibuprofen for discomfort, rest, and drink plenty of clear fluids. - Differential Dx/Diagnosis Provider Diagnoses: Viral syndrome Discharge - Sign-Out/Discharge Documenting (check all that apply): Patient Departure All imaging exams completed and their final reports reviewed: No Studies - Discharge Plan Condition: Stable Disposition: HOME Patient Education Materials: Viral Syndrome (ED) Forms: *Work Release Referrals: Ronal Be MD [Primary Care Provider] - Additional Instructions: If you develop a fever, shortness of breath, chest pain, new or worsening symptoms - please call your PCP or go to the ED. - Billing Disposition and Condition Condition: STABLE Disposition: Home
== END 2018-07-26 18:51 | disposition home or self-care (01) ==
LOC: UCCORT 17:44
DX: B34.9 Viral infection, unspecified (principal); L23.1 Allergic contact dermatitis due to adhesives; F17.210 Nicotine dependence, cigarettes, uncomplicated; Z88.1 Allergy status to other antibiotic agents; Z88.8 Allergy status to other drugs, medicaments and biological substances
CPT/HCPCS: 99211; G0463

== ENCOUNTER 2019-01-01 19:45 | Emergency (ER) | payer MEDICAID ==
--- OUTSIDE RECORDS SUMMARY | 2019-01-01 20:41 | XMS REPORT | Continuity of Care Document ---
:1985 External Reference #:[id number] Author Name Isaura Storm Care Team Providers Name Role Phone Brooke Shipman M.D. Primary Care Physician Unavailable Payers Date Identification Numbers Payment Provider Subscriber Effective: Policy Number: [id number] [employer] Michael Deluna 2006 Medicaid PayID: [id number] [address] [address] [place] [address] Onset: 2016 Policy Number: [id number] Insurance Michael Deluna Group Number: [id number] [address] [address] Group Name: Ext: [id number] [place] [address] PayID: [id number] Advance Directives Description No Information Available Problems Date Description Provider Status Onset: 08/13/2011 Non-neoplastic nevus Osbaldo Peoples M.D. Active Onset: 08/13/2011 Depressive disorder Osbaldo Peoples M.D. Active Onset: 08/13/2011 Refractory migraine variants Osbaldo Peoples M.D. Active Onset: 08/13/2011 Insomnia Osbaldo Peoples M.D. Active Onset: 08/13/2011 Anemia Osbaldo Peoples M.D. Active Onset: 08/13/2011 Cobalamin deficiency Osbaldo Peoples M.D. Active Onset: 08/13/2011 Gastroesophageal reflux disease Osbaldo Peoples M.D. Active Onset: 08/13/2011 Anxiety state Osbaldo Peoples M.D. Active Onset: 06/02/2012 High risk sexual behavior Carolina Kiran N.P. Active Onset: 02/09/2013 Vitamin B-complex deficiency Osbaldo Peoples M.D. Active Onset: 02/09/2013 Malaise and fatigue Osbaldo Peoples M.D. Active Family History Description No Information Available Social History Type Date Description Comments Sex Unknown Marital Status Significant Other Lives With lives with S.O. male and 3 children Occupation Unemployed Tobacco Use Start: Unknown Never Smoked Cigarettes ETOH Use 03/02/2014 Denies alcohol use Recreational Drug Use Never Used Drugs Tobacco Use Start: Unknown End: Patient is a former Unknown smoker Smoking Status Reviewed: 12/15/18 Patient is a former smoker Exercise Type/Frequency walks 1/2 mile 3 times / week Allergies, Adverse Reactions, Alerts Date Description Reaction Status Severity Comments 10/04/2009 Zithromax n/v,hives, face swelling Active 10/04/2009 Cipro ? Active 10/04/2009 Adhesives swelling and redness Active 12/21/2013 Wellbutrin Active 02/07/2014 Sun Active Medications Medication Date Status Form Strength Qnty SIG Indications Ordering Provider No Active 07/16 Active Unknown Medications Sumatriptan 05/16 Hx Tablets 100mg 10tab use at [place] s onset of [place] - head , M.D. 07/16 ache,january repeat after 2h as needed Oxycodone HCL 04/28 Hx Tablets 5mg 30tab 1 by mouth s every 8 [place], - hours as [employer] 07/16 Oxycodone-Acetam 04/10 Hx Tablets 5-325mg 30tab 1 tab every M54.2 [facility] s 8h as Elizabeth Be, - needed M.D.,FACP 04/28 Tizanidine HCL 04/10 Hx Capsules 4mg 30cap 1cap by M54.2 s mouth twice [place] - a day as , M.D. 07/16 Ondansetron 04/10 Hx Tablets 4mg 10tab 1 two times M54.2 Dispers s a day as [place] - needed for , M.D. 07/16 nausea Meloxicam 04/10 Hx Tablets 15mg 30tab Take 1 M54.2 s Tablet By Elizabeth Be, - Mouth Every M.D.,FACP No Active 12/08 Hx Unknown Medications /2015 - 04/10 No Active 12/03 Hx Unknown Medications /2015 - 12/03 Benzonatate 12/03 Hx Capsules 100mg 15cap 1 capsule R05 Aqu[place] s three times [place], - a day take [employer] 12/08 as needed. Amoxicillin/Clav 06/04 Hx Tablets 875-125mg 20tab one tablet Other ulanate s by mouth Ordering Potassium - twice daily Provider 06/14 for 10 days Hydrocodone-Acet 06/04 Hx Tablets 5-325mg 50tab 1 by mouth Aquilino aminophen s every 4-6 [place], - hours prn. [employer] 12/03 No Active 04/02 Hx Unknown Medications /2014 - 04/02 Rizatriptan 04/02 Hx Tablets 5mg 8tabs take 1 346.11 Aqu[place] Benzoate /2014 tablet by [place], - mouth at [employer] 12/03 onset of migraine, may repeat after 2 hours. not to use for more than 4 headaches/m onth Topamax 04/02 Hx Tablets 25mg 77tab 1 tablet po 346.11 Aquilino s daily at [facility], - x's 1 week [employer] 12/03 then 1 tab /2015 bid x's 1week, then 2 tab bid; refill 50mg bid Guaifenesin ac 11/22 Hx Syrup 100-10mg/ 180ml 1 teaspoon 786.2 Nic 5ML by mouth Chu, [employer] - every 4-6 04/02 hours as needed cough Doxycycline 11/15 Hx Capsules 100mg 10cap 1 capsulet 466.0 Aquilino Hyclate s by mouth [place], - daily for [employer]ATOR 11/25 Benzonatate 11/15 Hx Capsules 100mg 15cap 1 capsule 786.2 Aquilino /2014 s three times [place], - a day take [employer] 11/25 as needed. Proair HFA 11/15 Hx Aerosol 108(90Bas 1unit 1 puff 786.07 Aquilino e) s every 4 [place], - mcg/Act hours as [employer] 04/02 needed for chest tightness or wheezing No Active 10/17 Hx Unknown Medications /2014 - 11/15 Prednisone 02/07 Hx Tablets 20mg 4tabs 1 tab po 692.71 Irma /2013 everyday Espinoza, - for 4 dys M.D. 03/02 Ferrous 11/29 Hx Tablets 240(27Fe) 100ta 1 po every Irma Gluconate /2013 mg bs day Layla Doran M.D. 10/11 Amoxicillin/Pota 02/23 Hx Tablets 875-125mg 20tab 1 po bid 466.0 [place] s Pachjasvir Clavulanate - Elva 11/21 Cyanocobalamin 02/23 Hx Solution 1000mcg/M 25ml 1.0 ML L once a Espinoza, - month M.D. 02/07 No Active 02/09 Hx Unknown Medications /2012 - 02/09 Meloxicam 02/09 Hx Tablets 15mg 30tab once daily s with food Richelle - Elva 12/21 Ibuprofen 10/11 Hx Tablets 600mg 30tab 1 tab by 845.00 s mouth three Borja, - times a day M.D. 02/09 prn Percocet 10/11 Hx Tablets 5-325mg 30tab 1 tab po 845.00 s q8h prn Borja, - pain M.D. 02/09 Fluconazole 06/02 Hx Tablets 150mg 1tabs take one 616.10 pill po x 1 [place]-W - atson, 10/11 N.P. /2012 Amoxicillin 01/08 Hx Capsules 250mg 30cap 1 tab po 3 s times per Espinoza, - day every M.DTatiana 01/08 Keflex 01/04 Hx Capsules 500mg 30cap 1 po tid s Richelle - Elva 01/14 Flonase 12/31 Hx Suspension 50mcg/Act 1unit 1 461.9 s intranasal Espinoza, - puff to M.D. 06/02 nostril daily Zofran 12/08 Hx Tablets 4mg 40tab 1 q 6 hours 558.9 s prn nausea Richelle Rich M.D. 06/02 Relpax 11/24 Hx Tablets 40mg 5tabs 1 tab at 346.92 onset of Richelle krishnamurthy M.D. 06/02 ache,january repeat after 1 hour Singulair 09/03 Hx Tablets 10mg 30tab 1 po qd 786.2 s Richelle Rich M.D. 11/24 Flonase 08/13 Hx Suspension 50mcg/Act 1unit 1 786.2 s intranasal Richelle Rich puff to Elva 11/24 nostril bid Omeprazole 08/[address] 20mg 30cap 1 po qd 786.2 ludmila Rich M.D. 11/24 Nebulizer 07/30 Hx 466.0 Osbaldo Richelle Rich M.D. 11/24 Albuterol 07/30 Hx Nebulizer 0.63mg/3M 120un qid prn 466.0 L its Richelle Rich M.D. 11/24 Prednisone 07/30 Hx Tablets 10mg 6tabs [id number], 466.0 1tabxday. Richelle Rich M.D. 08/13 Ferrous Sulfate 02/03 Hx Tablets 325(65Fe) 1 po qd mg Richelle Rich M.D. 07/30 Zantac 01/28 Hx Tablets 150mg 30tab 1 po bid s prn Richelle Rich M.D. 07/30 Amoxicillin/Clav 01/28 Hx Tablets 875-125mg 20tab 1 po bid 466.0 Osbaldo s Richelle Rich M.D. 07/30 Maxalt-WORM PACKER 01/28 Hx Tablets 10mg 10tab as directed 346.93 Dispers ludmila Rich M.D. 07/30 Wellbutrin XL 01/28 Hx Tablets ER 150mg 30tab 1 po qd 311 24HR s Richelle Rich M.D. 02/03 10/29 Hx Tablets 0.8mg Osbaldo Richelle Rich M.D. 01/28 Ambien 10/29 Hx Tablets 10mg 30tab 09/29 to1 tab 780.52 s hs prn Richelle Rich M.D. 07/30 Zantac 10/29 Hx Tablets 150mg 30tab once daily 530.81 s am Richelle Rich M.D. 01/28 Lexapro 07/29 Hx Tablets 10mg 30tab once daily 300.09 s Richelle Rich M.D. 10/29 Ambien 07/29 Hx Tablets 10mg 30tab 09/29 to1 tab 780.52 s hs prn Richelle Rich M.D. 10/29 Prilosec 07/[address] 20mg 30cap 1 po qd in 530.81 s empty Richelle silva M.D. 10/29 Cyanocobalamin 07/02 Hx Solution 1000mcg/M 0.5ml Im L qmontmaranda Rich M.D. 10/29 Zoloft 06/27 Hx Tablets 100mg 30tab 1 tab daily 300.01 ludmila Rich M.D. 10/10 Ibuprofen 06/27 Hx Tablets 600mg 90tab tid 311 ludmila Rich M.D. 10/10 Maxalt-WORM PACKER 06/27 Hx Tablets 10mg 10tab as directed 346.93 Dispers ludmila Rich M.D. 10/29 Ferrousul 06/17 Hx Tablets 325(65Fe) 60tab 1 po bid mg s Richelle Rich M.D. 10/29 Zoloft 06/13 Hx Tablets 50mg 30tab 1/2 tab 300.01 s daily x 7 [place] - days Elva patton 06/27 1tab daily Augmentin 06/13 Hx Tablets 875-125mg 20tab po bid 785.6 s Richelle Rich M.D. 06/27 Amoxicillin 04/26 Hx Capsules 500mg 30cap 1 tid 466.0 [facility] Silverio keys - MD 06/27 Ventolin HFA 10/12 Hx Aerosol 108(90Bas 1mont 2 puffs po e) mcg/ac carey q6hrs and Noel, - q3hrs prn M.D. 10/10 Medrol (Sergio) 10/04 Hx Tablets 4mg 493.90 Mur Noel, - M.D. 04/26 Proventil HFA 10/04 Hx Aerosol 108(90Bas 2 puffs 493.90 Murli e) mcg/ac every six Noel, - hours and M.D. 10/12 every 3 hrs as needed. Asmanex 120 10/04 Hx Aerosol 220mcg/In one puff 493.90 Murli Metered Doses /2009 h bid Noel, - starting M.D. 04/26 from the last day of taking steroids. Bactrim DS Hx Tablets 800-160mg 14tab 1 po bid Unknown /0000 s for 7 days - 08/13 Albuterol Hx Nebulizer (2.5mg/3M 1unit 2 puffs po [place] Sulfate /0000 L) 0.083% s qid prn Richelle Rich M.D. 11/24 Cough Syrup With Hx Syrup 2 tsp every Unknown Codiene /0000 4-6 hrs - 08/13 Prednisone Hx Tablets 20mg 5tabs 2 po qd Unknown /0000 - 08/13 Percocet Hx Tablets 5-325mg 40tab 1-2 po Unknown /0000 s q4-6h prn - pain 02/09 Ibuprofen Hx Tablets 800mg 90tab po tid prn Unknown /0000 s - 02/09 Hx Tablets 0.8mg 30tab 1 by mouth Unknown Vitamins /0000 s every day - 10/12 Tramadol HCL Hx Tablets 50mg 50tab four times Unknown /0000 s a day as - needed 10/17 Zyrtec Allergy 00 Hx Capsules 10mg 1 by mouth Unknown /0000 every day - 04/02 Medications Administered in Office Medication Date Status Form Strength Qnty SIG Indications Ordering Provider PPD Administered Injection Aquilino 015 VIPUL Villalobos B-12 Injection Administered Injection Nurse Visit 014 C B-12 Injection Administered Injection Osbaldo Peoples M.D. PPD Administered Injection Osbaldo 013 Elva Peoples PPD Administered Injection Osbaldo 011 Elva Peoples PPD Administered Injection Osbaldo 011 Elva Peoples B-12 Injection Administered Injection Nurse Visit 011 [place] B-12 Injection Administered Injection Nurse Visit 011 [place] B-12 Injection Administered Injection Nurse Visit 011 [place] B-12 Injection Administered Injection Nurse Visit 010 [place] B-12 Injection Administered Injection Nurse Visit 010 [place] B-12 Injection Administered Injection Nurse Visit 010 [place] B-12 Injection Administered Injection Nurse Visit 010 [place] PPD Administered Injection Nurse Visit 010 [place] B-12 Injection Administered Injection Osbaldo 010 Elva Peoples Immunizations CPT Code Status Date Vaccine Lot # [id number] Given 07/16/2018 Influenza Virus Vaccine, Quadrivalent, Split, [id number] Preservative Free [id number] Given 08/29/2011 Measles Mumps And Rubella MMR [id number] Given 08/13/2011 Influenza Virus 3Yrs & Over [id number] Given 06/27/2010 Influenza Virus 3Yrs & Over [id number] Vital Signs Date Vital Result Comment 12/15/2018 2:39pm Height 66.75 inches 5'6.75" Weight 297.12 lb Heart Rate 89 /min BP Systolic 128 mmHg BP Diastolic 88 mmHg Body Temperature 98.2 F O2 % BldC Oximetry 98 % BMI (Body Mass Index) 46.9 kg/m2 07/16/2018 9:06am Height 66.75 inches 5'6.75" Weight 284.00 lb Heart Rate 71 /min BP Systolic Sitting 110 mmHg BP Diastolic Sitting 70 mmHg Body Temperature 97.2 F O2 % BldC Oximetry 98 % BMI (Body Mass Index) 44.8 kg/m2 07/01/2016 2:14pm Weight 296.25 lb Heart Rate 86 /min BP Systolic Sitting 128 mmHg BP Diastolic Sitting 88 mmHg Body Temperature 97.9 F O2 % BldC Oximetry 98 % 05/23/2016 11:09am Height 66 inches 5'6" Weight 293.00 lb Heart Rate 86 /min BP Systolic Sitting 128 mmHg BP Diastolic Sitting 74 mmHg Body Temperature 97.9 F O2 % BldC Oximetry 98 % BMI (Body Mass Index) 47.3 kg/m2 05/08/2016 4:22pm Weight 298.12 lb Heart Rate 72 /min BP Systolic Sitting 138 mmHg BP Diastolic Sitting 72 mmHg Body Temperature 98.3 F O2 % BldC Oximetry 98 % 04/17/2016 11:52am Height 66 inches 5'6" Weight 301.25 lb Heart Rate 93 /min BP Systolic Sitting 106 mmHg BP Diastolic Sitting 86 mmHg Body Temperature 97.6 F O2 % BldC Oximetry 93 % BMI (Body Mass Index) 48.6 kg/m2 04/10/2016 4:11pm Height 66 inches 5'6" Weight 295.00 lb Heart Rate 100 /min BP Systolic Sitting 140 mmHg BP Diastolic Sitting 80 mmHg Body Temperature 98.1 F Pain Level 9 9/10 pain scale O2 % BldC Oximetry 95 % BMI (Body Mass Index) 47.6 kg/m2 12/04/2015 12:01pm Height 66 inches 5'6" Weight 296.00 lb Heart Rate 115 /min BP Systolic Sitting 118 mmHg BP Diastolic Sitting 82 mmHg Body Temperature 98.6 F O2 % BldC Oximetry 96 % BMI (Body Mass Index) 47.8 kg/m2 04/02/2015 9:40am Height 66 inches 5'6" Weight 327.00 lb Heart Rate 80 /min BP Systolic Sitting 120 mmHg BP Diastolic Sitting 88 mmHg Body Temperature 97.2 F O2 % BldC Oximetry 99 % BMI (Body Mass Index) 52.8 kg/m2 11/22/2014 10:36am Height 68 inches 5'8" Weight 314.00 lb Heart Rate 97 /min BP Systolic Sitting 122 mmHg BP Diastolic Sitting 76 mmHg Body Temperature 97.9 F BMI (Body Mass Index) 47.7 kg/m2 11/15/2014 10:57am Height 68 inches 5'8" Weight 314.00 lb Heart Rate 121 /min BP Systolic Sitting 114 mmHg BP Diastolic Sitting 72 mmHg Body Temperature 98.4 F O2 % BldC Oximetry 99 % BMI (Body Mass Index) 47.7 kg/m2 10/17/2014 10:51am Weight 316.00 lb Heart Rate 101 /min BP Systolic Sitting 125 mmHg BP Diastolic Sitting 88 mmHg Body Temperature 98.9 F O2 % BldC Oximetry 98 % 03/02/2014 9:44am Weight 297.00 lb Heart Rate 96 /min BP Systolic Sitting 110 mmHg BP Diastolic Sitting 68 mmHg Body Temperature 98.1 F 02/07/2014 4:34pm Weight 291.00 lb 12/21/2013 9:57am Weight 289.75 lb Heart Rate 102 /min BP Systolic Sitting 108 mmHg BP Diastolic Sitting 64 mmHg Body Temperature 97.2 F O2 % BldC Oximetry 98 % 02/23/2013 9:52am Weight 265.00 lb Heart Rate 90 /min BP Systolic Sitting 120 mmHg BP Diastolic Sitting 72 mmHg Body Temperature 98.3 F O2 % BldC Oximetry 99 % 02/09/2013 2:26pm Height 66 inches 5'6" Weight 257.00 lb Heart Rate 80 /min BP Systolic Sitting 110 mmHg BP Diastolic Sitting 72 mmHg BMI (Body Mass Index) 41.5 kg/m2 10/11/2012 12:09pm Height 67.5 inches 5'7.50" Heart Rate 72 /min BP Systolic Sitting 108 mmHg BP Diastolic Sitting 60 mmHg 06/02/2012 12:42pm Height 67.5 inches 5'7.50" Weight 275.00 lb Heart Rate 76 /min BP Systolic Sitting 110 mmHg BP Diastolic Sitting 76 mmHg BMI (Body Mass Index) 42.4 kg/m2 01/01/2012 10:00am Height 67.5 inches 5'7.50" Weight 273.00 lb Heart Rate 66 /min BP Systolic Sitting 104 mmHg BP Diastolic Sitting 80 mmHg Body Temperature 97.5 F O2 % BldC Oximetry 96 % BMI (Body Mass Index) 42.1 kg/m2 12/09/2011 1:39pm Height 67.5 inches 5'7.50" Weight 270.00 lb Heart Rate 100 /min BP Systolic Sitting 118 mmHg BP Diastolic Sitting 80 mmHg Body Temperature 98.8 F BMI (Body Mass Index) 41.7 kg/m2 12/02/2011 2:39pm Height 67.5 inches 5'7.50" Weight 278.00 lb Heart Rate 84 /min BP Systolic Sitting 112 mmHg BP Diastolic Sitting 73 mmHg Body Temperature 97.4 F BMI (Body Mass Index) 42.9 kg/m2 11/24/2011 4:03pm Height 67.5 inches 5'7.50" Weight 280.00 lb Heart Rate 94 /min BP Systolic Sitting 118 mmHg BP Diastolic Sitting 78 mmHg Body Temperature 97.4 F BMI (Body Mass Index) 43.2 kg/m2 09/03/2011 1:05pm Height 67.5 inches 5'7.50" Weight 280.00 lb Heart Rate 94 /min BP Systolic Sitting 130 mmHg BP Diastolic Sitting 100 mmHg Body Temperature 97.6 F O2 % BldC Oximetry 98 % BMI (Body Mass Index) 43.2 kg/m2 08/13/2011 11:19am Height 67.5 inches 5'7.50" Weight 282.00 lb Heart Rate 68 /min BP Systolic Sitting 125 mmHg BP Diastolic Sitting 80 mmHg BMI (Body Mass Index) 43.5 kg/m2 07/30/2011 4:01pm Height 67.5 inches 5'7.50" Weight 280.00 lb Heart Rate 64 /min BP Systolic Sitting 110 mmHg BP Diastolic Sitting 80 mmHg BMI (Body Mass Index) 43.2 kg/m2 01/28/2011 12:59pm Height 67.5 inches 5'7.50" Weight 291.00 lb Heart Rate 90 /min BP Systolic Sitting 120 mmHg BP Diastolic Sitting 86 mmHg BMI (Body Mass Index) 44.9 kg/m2 10/29/2010 1:31pm Weight 289.00 lb Heart Rate 101 /min BP Systolic Sitting 132 mmHg BP Diastolic Sitting 80 mmHg O2 % BldC Oximetry 99 % 08/12/2010 2:17pm Weight 289.00 lb Heart Rate 90 /min BP Systolic Sitting 114 mmHg BP Diastolic Sitting 70 mmHg 07/29/2010 2:59pm Weight 295.00 lb Heart Rate 80 /min BP Systolic Sitting 116 mmHg BP Diastolic Sitting 70 mmHg 07/02/2010 3:11pm Weight 298.00 lb Heart Rate 90 /min BP Systolic Sitting 120 mmHg BP Diastolic Sitting 80 mmHg 06/27/2010 3:02pm Weight 295.00 lb Heart Rate 74 /min BP Systolic Sitting 132 mmHg BP Diastolic Sitting 82 mmHg 06/13/2010 3:57pm Weight 295.00 lb Heart Rate 88 /min BP Systolic Sitting 110 mmHg BP Diastolic Sitting 70 mmHg 04/26/2010 1:01pm Weight 300.00 lb Heart Rate 85 /min Respiratory Rate 18 /min Body Temperature 97.9 F O2 % BldC Oximetry 97 % 01/11/2010 1:37pm Heart Rate 84 /min BP Systolic 120 mmHg BP Diastolic 76 mmHg 10/15/2009 4:16pm Heart Rate 136 /min BP Systolic Sitting 100 mmHg BP Diastolic Sitting 76 mmHg Respiratory Rate 20 /min 10/12/2009 11:59am Height 67.50 inches 5'7.50" Weight 292.00 lb Heart Rate 84 /min BP Systolic Sitting 142 mmHg BP Diastolic Sitting 93 mmHg BMI (Body Mass Index) 45.1 kg/m2 10/04/2009 10:32am Height 67.50 inches 5'7.50" Weight 290.00 lb Heart Rate 96 /min BP Systolic Sitting 140 mmHg BP Diastolic Sitting 70 mmHg Respiratory Rate 16 /min Body Temperature 97.6 F O2 % BldC Oximetry 99 % BMI (Body Mass Index) 44.7 kg/m2 Results Test Date Facility Test Result H/L Range Note Laboratory test [facility] HIV 1&2 AB Nonreactive Nonreactive 1, 2 finding [address] Self Referred [place], [place] [id number] [phone] Laboratory test [facility] Rapid Strep Negative Negative 3 finding [address] Molecular [place], [place] [id number] [phone] Rapid Influenza [facility] Influenza A NEGATIVE Negative 4 A & B Molecular [address] Molecular [place], [place] [id number] [phone] Influenza B Molecular NEGATIVE Negative Laboratory test 11/03/2017 [facility] Rapid Strep Negative Negative [address] [place] [address] [phone] Urine Culture And 08/22/2017 [facility] Urine Culture SEE RESULT 6, [address] BEL[address] [place], [place] [id number] [phone] Rapid Influenza A 08/22/2017 [facility] Influenza A NEGATIVE Negative 8 & B Molecular [address] [place] [address] [phone] Influenza B Molecular NEGATIVE Negative Poc Urinalysis 08/22/2017 [facility] Poc Glucose, Negative Negative [address] Urine [place], [place] [address] [phone] Poc Bilirubin, Urine 1+ Abnormal Negative Poc Ketone, Urine Trace Abnormal Negative Poc Specific [place], Urine >=1.030 N 1.010-1.030 Poc Blood, Urine 3+ Abnormal Negative Poc pH, Urine 5.5 N 5-9 Poc Protein, Urine 2+ Abnormal Negative Poc Urobilinogen, Urine 1.0 Negative Poc Nitrite, Urine Positive Abnormal Negative Poc Leukocytes, Urine Trace Abnormal Negative Poc Color, Urine Red Abnormal Poc Clarity, Urine Cloudy 9 Urinalysis Profile 07/24/2017 [facility] Urine Color Yellow N [address] [place] [address] [phone] Urine Appearance Cloudy N Urine Specific [place] 1.012 N 1.010-1.030 Urine pH 6.0 N 5-9 Urine Urobilinogen Negative N Negative Urine Ketones Negative N Negative Urine Protein Negative N Negative Urine Leukocytes 2+ Abnormal Negative Urine Blood 1+ Abnormal Negative Urine Nitrite Negative N Negative Urine Bilirubin Negative N Negative Urine Glucose Negative N Negative Urine White Blood Cell Trace(0-5/hpf) N Absent Urine Red Blood Cell Trace(0-2/hpf) N Absent Urine Bacteria 1+ Abnormal Absent Urine Squamous Epithelial Cell Present Abnormal Absent Urine Culture And 07/24/2017 [facility] Urine Culture SEE RESULT [address] [place] [address] [phone] Comp Metabolic 07/24/2017 [facility] Sodium 133 mmol/L N 133- [address] [place] [address] [phone] Potassium 4.2 mmol/L N 3.5-5.0 Chloride 101 mmol/L N 101-111 Co2 Carbon Dioxide 26 mmol/L N 22-32 Anion Gap 6 mmol/L N 2-11 Glucose 103 mg/dL High 70-100 Blood Urea Nitrogen 13 mg/dL N 6-24 Creatinine 0.71 mg/dL N 0.51-0.95 BUN/Creatinine Ratio 18.3 N 8-20 Calcium 9.1 mg/dL N 8.6-10.3 Total Protein 7.2 g/dL N 6.4-8.9 Albumin 4.1 g/dL N 3.2-5.2 Globulin 3.1 g/dL N 2-4 Albumin/Globulin Ratio 1.3 N 1-3 Total Bilirubin 0.30 mg/dL N 0.2-1.0 Alkaline Phosphatase 59 U/L N 34-104 Alt 10 U/L N 7-52 Ast 10 U/L Low 13-39 Egfr Non- 94.8 N >60 Egfr 121.9 N >60 11 Laboratory test 07/24/2017 [facility] C Reactive 3.55 mg/L N < 5.00 [address] [place] [address] [phone] CBC Auto Diff 07/24/2017 [facility] White Blood 7.6 N 3.5- 10.[address] Count 10^3/[place] [address] [phone] Red Blood Count 3.92 10^6/uL Low 4.0-5.4 Hemoglobin 10.7 g/dL Low 12.0-16.0 Hematocrit 33 % Low 35-47 Mean Corpuscular Volume 85 fL N 80-97 Mean Corpuscular Hemoglobin 27 pg N 27-31 Mean Corpuscular HGB Conc 32 g/dL N 31-36 Red Cell Distribution Width 17 % High 10.5-15 Platelet Count 322 10^3/uL N 150-450 Mean Platelet Volume 9 um3 N 7.4-10.4 Abs Neutrophils 4.9 10^3/uL N 1.5-7.7 Abs Lymphocytes 1.9 10^3/uL N 1.0-4.8 Abs Monocytes 0.6 10^3/uL N 0-0.8 Abs Eosinophils 0.1 10^3/uL N 0-0.6 Abs Basophils 0 10^3/uL N 0-0.2 Abs Nucleated RBC 0 10^3/uL N Granulocyte % 64.9 % N 38-83 Lymphocyte % 25.5 % N 25-47 Monocyte % 7.6 % N 1-9 Eosinophil % 1.4 % N 0-6 Basophil % 0.6 % N 0-2 Nucleated Red Blood Cells % 0 N Laboratory test 12/04/2015 [facility] Rapid Group A negative finding Strep Laboratory test 06/04/2015 [facility] Throat Beta Strep SEE RESULT [address] [place] [address] [phone] Laboratory test 04/02/2015 [facility] TSH (Thyroid Stim 0.23 ?IU /mL Low 0.34- 14, [address] Horm) 5.60 [place] [address] [phone] Lipid Profile 04/02/2015 [facility] Triglycerides 143 mg/dL N 16 (Trig/Chol/HDL) [address] [place] [address] [phone] Cholesterol 173 mg/dL N 17 HDL Cholesterol 48.9 mg/dL N 18 LDL Cholesterol 96 mg/dL N 19 Comp Metabolic Panel 04/02/2015 [facility] Sodium 137 mmol/L N 133-[address] [place] [address] [phone] Potassium 4.1 mmol/L N 3.5-5.0 Chloride 103 mmol/L N 101-111 Co2 Carbon Dioxide 29 mmol/L N 22-32 Anion Gap 5 mmol/L N 2-11 Glucose 94 mg/dL N 70-100 Blood Urea Nitrogen 8 mg/dL N 6-24 Creatinine 0.65 mg/dL N 0.51-0.95 BUN/Creatinine Ratio 12.3 N 8-20 Calcium 9.0 mg/dL N 8.6-10.3 Total Protein 6.6 g/dL N 6.4-8.9 Albumin 3.8 g/dL N 3.2-5.2 Globulin 2.8 g/dL N 2-4 Albumin/Globulin Ratio 1.4 N 1-3 Total Bilirubin 0.30 mg/dL N 0.2-1.0 Alkaline Phosphatase 70 U/L N 34-104 Alt 12 U/L N 7-52 Ast 13 U/L N 13-39 Egfr Non- 106.3 N >60 Egfr 136.7 N >60 20 Vitamin B12 And 04/02/2015 [facility] Vitamin B12 217 pg/mL N 180-914 [address] [place] [address] [phone] Folic Acid (Folate) 8.63 ng/mL N >3.99 22 Laboratory test 10/17/2014 [facility] Rapid Influenza (SEE NOTE ) [address] [place] [address] [phone] CBC Auto Diff 05/31/2014 [facility] White Blood 7.8 10^3/uL N 4.8-[address] Count .8 [place] [address] [phone] Red Blood Count 3.14 10^6/uL Low 4.0-5.4 Hemoglobin 9.0 g/dL Low 12.0-16.0 Hematocrit 27 % Low 35-47 Mean Corpuscular Volume 85 fL N 80-97 Mean Corpuscular Hemoglobin 29 pg N 27-31 Mean Corpuscular HGB Conc 34 g/dL N 31-36 Red Cell Distribution Width 16 % High 10.5-15 Platelet Count 358 10^3/uL N 150-450 Mean Platelet Volume 8 um3 N 7.4-10.4 Abs Neutrophils 5.9 10^3/uL N 1.5-7.7 Abs Lymphocytes 1.5 10^3/uL N 1.0-4.8 Abs Monocytes 0.4 10^3/uL N 0-0.8 Abs Eosinophils 0.1 10^3/uL N 0-0.6 Abs Basophils 0 10^3/uL N 0-0.2 Abs Nucleated RBC 0 10^3/uL N Granulocyte % 75.0 % N 38-83 Lymphocyte % 19.1 % Low 25-47 Monocyte % 4.9 % N 1-9 Eosinophil % 0.7 % N 0-6 Basophil % 0.3 % N 0-2 Nucleated Red Blood Cells % 0 N Type & Screen 05/31/2014 [facility] Patient Blood Type A Negative N [address] [place] [address] [phone] Antibody Screen NEGATIVE N Urinalysis Profile 05/24/2014 [facility] Urine Color Yellow N [address] [place] [address] [phone] Urine Appearance Cloudy N Urine Specific [place] 1.021 N 1.010-1.030 Urine pH 6.0 N 5-9 Urine Urobilinogen Negative N Negative Urine Ketones Negative N Negative Urine Protein 1+(30 mg/dL) Abnormal Negative Urine Leukocytes Negative N Negative Urine Blood Negative N Negative Urine Nitrite Negative N Negative Urine Bilirubin Negative N Negative Urine Glucose Negative N Negative Urine White Blood Cell 2+(11-20/hpf) Abnormal Absent Urine Red Blood Cell 2+(6-10/hpf) Abnormal Absent Urine Bacteria 2+ Abnormal Absent Urine Squamous Epithelial Cell Present Abnormal Absent Urine Calcium Oxalate Cryst Present Abnormal Absent Urine Culture And 05/24/2014 [facility] Urine Culture (SEE NOTE ) 24 Sensitivities [address] [place] [address] [phone] Urinalysis Profile 05/17/2014 [facility] Urine Color Yellow N [address] [place] [address] [phone] Urine Appearance Cloudy N Urine Specific [place] 1.013 N 1.010-1.030 Urine pH 7.0 N 5-9 Urine Urobilinogen Negative N Negative Urine Ketones Negative N Negative Urine Protein Negative N Negative Urine Leukocytes Negative N Negative Urine Blood Negative N Negative Urine Nitrite Negative N Negative Urine Bilirubin Negative N Negative Urine Glucose Negative N Negative Urine Culture And 05/17/2014 [facility] Urine Culture (SEE NOTE ) 25 Sensitivities [address] [place] [address] [phone] Urinalysis Profile 05/08/2014 [facility] Urine Color Straw N [address] [place] [address] [phone] Urine Appearance Clear N Urine Specific [place] 1.004 Low 1.010-1.030 Urine pH 7.0 N 5-9 Urine Urobilinogen Negative N Negative Urine Ketones Negative N Negative Urine Protein Negative N Negative Urine Leukocytes Negative N Negative Urine Blood Negative N Negative Urine Nitrite Negative N Negative Urine Bilirubin Negative N Negative Urine Glucose Negative N Negative CBC No Diff 05/08/2014 [facility] White Blood 10.5 10^3/uL N 4.8-10.[address] [place] [address] [phone] Red Blood Count 3.06 10^6/uL Low 4.0-5.4 Hemoglobin 9.0 g/dL Low 12.0-16.0 Hematocrit 26 % Low 35-47 Mean Corpuscular Volume 87 fL N 80-97 Mean Corpuscular Hemoglobin 29 pg N 27-31 Mean Corpuscular HGB Conc 34 g/dL N 31-36 Red Cell Distribution Width 15 % N 10.5-15 Platelet Count 356 10^3/uL N 150-450 Mean Platelet Volume 8 um3 N 7.4-10.4 Laboratory test 05/08/2014 [facility] Uric Acid 4.9 mg/dL N 2.3-6.6 finding [address] [place] [address] [phone] Alt 6 U/L Low 7-52 Ast 10 U/L Low 13-39 Amnisure No Membrane Rupt <SEE NOTE> N 26 Urine Culture And 05/08/2014 [facility] Urine Culture (SEE NOTE ) [address] [place] [address] [phone] Laboratory test 03/02/2014 [facility] Throat (SEE NOTE) [address] [place] [address] [phone] Laboratory test 03/02/2014 [facility] Rapid Strep A neg finding CBC With Manual 03/02/2014 [facility] White Blood 9.9 10^3/uL N 4.8-[address] Count .8 [place] [address] [phone] Red Blood Count 3.34 10^6/uL Low 4.0-5.4 Hemoglobin 10.7 g/dL Low 12.0-16.0 Hematocrit 31 % Low 35-47 Mean Corpuscular Volume 92 fL N 80-97 Mean Corpuscular Hemoglobin 32 pg High 27-31 Mean Corpuscular HGB Conc 35 g/dL N 31-36 Red Cell Distribution Width 14 % N 10.5-15 Platelet Count 337 10^3/uL N 150-450 Mean Platelet Volume 8 um3 N 7.4-10.4 Abs Neutrophils 7.9 10^3/uL High 1.5-7.7 Abs Lymphocytes 1.4 10^3/uL N 1.0-4.8 Abs Monocytes 0.5 10^3/uL N 0-0.8 Abs Eosinophils 0.1 10^3/uL N 0-0.6 Abs Basophils 0 10^3/uL N 0-0.2 Abs Nucleated RBC 0.01 10^3/uL N Neutrophil % 77 % N 38-83 Band % 3 % N 0-8 Lymphocytes % 16 % Low 25-47 Monocytes % 3 % N 0-13 Eosinophils % 1 % N 0-6 RBC Morphology Normal N Normal Iron & Iron Binding 03/02/2014 [facility] Iron 30 g/dL Low 50-212 Capacity [address] [place] [address] [phone] Unsaturated Iron Binding 481 g/dL N Total Iron Binding Capacity 511 g/dL High 250-450 % Iron Saturation 6 % Low 15-55 Vitamin B12 And 03/02/2014 [facility] Vitamin B12 157 pg/mL Low 180-914 [address] [place] [address] [phone] Folate 8.34 ng/mL N >3.99 Laboratory test 03/02/2014 [facility] Ferritin < 10.0 ng/mL Low 11-307 finding [address] [place] [address] [phone] Urinalysis 12/06/2013 [facility] Urine Color Yellow [address] [place] [address] [phone] Urine Appearance Clear Urine Specific [place] 1.025 1.010-1.030 Urine Esterase Negative Negative Urine Nitrate Negative Negative Urine Urobilinogen Negative E.U./dL Negative Urine Protein Negative mg/dL Negative Urine pH 6.0 5-9 Urine Blood Negative Negative Urine Ketones Negative mg/dL Negative Urine Bilirubin Negative Negative Urine Glucose Negative mg/dL Negative Comp Metabolic Panel 12/06/2013 [facility] Sodium 135 mmol/L 133-145 [address] [place] [address] [phone] Potassium 3.8 mmol/L 3.7-5.6 Chloride 103 mmol/L 101-111 Co2 Carbon Dioxide 26 mmol/L 22-32 Anion Gap 6 mmol/L 2-11 Glucose 91 mg/dL 70-100 Blood Urea Nitrogen 10 mg/dL 6-24 Creatinine 0.51 mg/dL 0.51-0.95 BUN/Creatinine Ratio 19.6 8-20 Calcium 8.8 mg/dL 8.6-10.3 Total Protein 6.0 g/dL Low 6.4-8.9 Albumin 3.5 g/dL 3.2-5.2 Globulin 2.5 g/dL 2-4 Albumin/Globulin Ratio 1.4 1-3 Total Bilirubin 0.20 mg/dL 0.2-1.0 Alkaline Phosphatase 49 U/L 34-104 Alt 6 U/L Low 7-52 Ast 8 U/L Low 13-39 Egfr Non- 141.6 >60 Egfr 182.1 >60 30 CBC Auto Diff 12/06/2013 [facility] White Blood 10.2 10^3/uL 4.8-10.[address] [place] [address] [phone] Red Blood Count 3.68 10^6/uL Low 4.0-5.4 Hemoglobin 11.8 g/dL Low 12.0-16.0 Hematocrit 33 % Low 35-47 Mean Corpuscular Volume 90 fL 80-97 Mean Corpuscular Hemoglobin 32 pg High 27-31 Mean Corpuscular HGB Conc 36 g/dL 31-36 Red Cell Distribution Width 14 % 10.5-15 Platelet Count 338 10^3/uL 150-450 Mean Platelet Volume 8 um3 7.4-10.4 Abs Neutrophils 6.7 10^3/uL 1.5-7.7 Abs Lymphocytes 2.6 10^3/uL 1.0-4.8 Abs Monocytes 0.7 10^3/uL 0-0.8 Abs Eosinophils 0.1 10^3/uL 0-0.6 Abs Basophils 0 10^3/uL 0-0.2 Abs Nucleated RBC 0.01 10^3/uL Granulocyte % 65.9 % 38-83 Lymphocyte % 25.6 % 25-47 Monocyte % 6.8 % 1-9 Eosinophil % 1.3 % 0-6 Basophil % 0.4 % 0-2 Nucleated Red Blood Cells % 0 Laboratory test 11/23/2013 [facility] Vitamin B12 160 pg/mL Low 180-914 31 finding [address] [place] [address] [phone] Iron & Iron 11/23/2013 [facility] Iron 81 g/dL 50-212 Binding Capacity [address] [place] [address] [phone] Unsaturated Iron Binding 384 g/dL Total Iron Binding Capacity 465 g/dL High 250-450 % Iron Saturation 17 % 15-55 Laboratory test finding 11/23/2013 [facility] Folate 12.33 ng/ mL >3.99 [address] [place] [address] [phone] Ferritin < 10.0 ng/mL Low 11-307 Comp Metabolic Panel 11/15/2013 [facility] Sodium 134 mmol/L 133-145 [address] [place] [address] [phone] Potassium TNP mmol/L 3.7-5.6 Chloride 102 mmol/L 101-111 Co2 Carbon Dioxide 24 mmol/L 22-32 Anion Gap TNP mmol/L 2-11 Glucose 96 mg/dL 70-100 Blood Urea Nitrogen 8 mg/dL 6-24 Creatinine 0.53 mg/dL 0.51-0.95 BUN/Creatinine Ratio 15.1 8-20 Calcium 9.0 mg/dL 8.6-10.3 Total Protein 6.3 g/dL Low 6.4-8.9 Albumin 3.7 g/dL 3.2-5.2 Globulin 2.6 g/dL 2-4 Albumin/Globulin Ratio 1.4 1-3 Total Bilirubin 0.30 mg/dL 0.2-1.0 Alkaline Phosphatase 49 U/L 34-104 Alt 9 U/L 7-52 Ast TNP U/L 13-39 Egfr Non- 136.4 >60 Egfr 175.4 >60 32 CBC Auto 11/15/2013 [facility] White Blood 11.0 10^3/uL High 4.8-10.[address] [place] [address] [phone] Red Blood Count 3.82 10^6/uL Low 4.0-5.4 Hemoglobin 11.1 g/dL Low 12.0-16.0 Hematocrit 35 % 35-47 Mean Corpuscular Volume 91 fL 80-97 Mean Corpuscular Hemoglobin 29 pg 27-31 Mean Corpuscular HGB Conc 32 g/dL 31-36 Red Cell Distribution Width 14 % 10.5-15 Platelet Count 359 10^3/uL 150-450 Mean Platelet Volume 8 um3 7.4-10.4 Abs Neutrophils 7.4 10^3/uL 1.5-7.7 Abs Lymphocytes 2.6 10^3/uL 1.0-4.8 Abs Monocytes 0.8 10^3/uL 0-0.8 Abs Eosinophils 0.2 10^3/uL 0-0.6 Abs Basophils 0.1 10^3/uL 0-0.2 Abs Nucleated RBC 0.01 10^3/uL Granulocyte % 67.2 % 38-83 Lymphocyte % 23.8 % Low 25-47 Monocyte % 7.1 % 1-9 Eosinophil % 1.4 % 0-6 Basophil % 0.5 % 0-2 Nucleated Red Blood Cells % 0.1 Laboratory test 11/15/2013 [facility] Lipase 8 U/L Low 11.0- 82.0 [address] [place] [address] [phone] Beta HCG Quantitative 71680.00 IU/mL High 0.0-5.0 34 C Reactive Protein 10.37 mg/L 35 Laboratory test 11/15/2013 [facility] Potassium 3.9 mmol/L 3.7-5.[address] [place] [address] [phone] Ast 10 U/L Low 13-39 Urine Culture And 11/15/2013 [facility] Urine (SEE NOTE) [address] [place] [address] [phone] Urine Microscopic 11/15/2013 [facility] Urine WBC 1+ (<10 None Seen [address] /hpf) [place] [address] [phone] Urine RBC None Seen None Seen Urine Mucus Present /lpf Absent Urine Epithelial Cells 1+ Squamous /hpf None Seen Bacteria Urine 2+ None Seen Urinalysis 11/15/2013 [facility] Urine Color Yellow [address] [place] [address] [phone] Urine Appearance Clear Urine Specific [place] 1.024 1.010-1.030 Urine Esterase 1+ Abnormal Negative Urine Nitrate Negative Negative Urine Urobilinogen Negative E.U./dL Negative Urine Protein Negative mg/dL Negative Urine pH 6.5 5-9 Urine Blood Negative Negative Urine Ketones Negative mg/dL Negative Urine Bilirubin Negative Negative Urine Glucose Negative mg/dL Negative GC/Chlamydia 10/31/2013 [facility] GC/Chlamydia Rna (SEE NOTE) 37 Amplified Rna [address] [place] [address] [phone] CBC Auto Diff 10/18/2013 [facility] White Blood Count 10.6 4.8-[address] 10^3/uL 0.8 [place] [address] [phone] Red Blood Count 3.97 10^6/uL Low 4.0-5.4 Hemoglobin 12.1 g/dL 12.0-16.0 Hematocrit 36 % 35-47 Mean Corpuscular Volume 91 fL 80-97 Mean Corpuscular Hemoglobin 31 pg 27-31 Mean Corpuscular HGB Conc 33 g/dL 31-36 Red Cell Distribution Width 14 % 10.5-15 Platelet Count 293 10^3/uL 150-450 Mean Platelet Volume 9 um3 7.4-10.4 Abs Neutrophils 7.3 10^3/uL 1.5-7.7 Abs Lymphocytes 2.5 10^3/uL 1.0-4.8 Abs Monocytes 0.7 10^3/uL 0-0.8 Abs Eosinophils 0.1 10^3/uL 0-0.6 Abs Basophils 0 10^3/uL 0-0.2 Abs Nucleated RBC 0 10^3/uL Granulocyte % 68.5 % 38-83 Lymphocyte % 23.5 % Low 25-47 Monocyte % 6.8 % 1-9 Eosinophil % 0.8 % 0-6 Basophil % 0.4 % 0-2 Nucleated Red Blood Cells % 0 Laboratory test 10/18/2013 [facility] Activated 30.8 seconds 24.0-36.[address] [place] [address] Thrombo Time [phone] Comp Metabolic 10/18/2013 [facility] Sodium 134 mmol/L 133- [address] [place] [address] [phone] Potassium 3.8 mmol/L 3.5-5.0 Chloride 101 mmol/L 101-111 Co2 Carbon Dioxide 27.0 mmol/L 22-32 Anion Gap 6.0 mmol/L 2-11 Glucose 100 mg/dL 70-100 Blood Urea Nitrogen 7 mg/dL 6-24 Creatinine 0.70 mg/dL 0.50-1.40 BUN/Creatinine Ratio 10.0 8-20 Calcium 9.0 mg/dL 8.1-9.9 Total Protein 8.0 g/dL 6.2-8.1 Albumin 3.8 g/dL 3.6-5.4 Globulin 4.2 g/dL High 2-4 Albumin/Globulin Ratio 0.9 Low 1-3 Total Bilirubin 0.7 mg/dL 0.4-1.5 Alkaline Phosphatase 54 U/L 30-110 Alt 15 U/L 14-54 Ast 18 U/L 12-42 Egfr Non- 98.9 >60 Egfr 127.2 >60 38 Laboratory test finding 10/18/2013 [facility] Lipase 16 U/L Low 22-[address] [place] [address] [phone] Beta HCG Quantitative 30680.0 MIU/ML High 0.0-5.0 39 C Reactive Protein < 0.5 mg/dL Less than 0.5 Urine Culture 06/20/2013 [facility] Urine (SEE NOTE) [address] [place] [address] [phone] HIV 1/2 AB 02/09/2013 [facility] HIV 1 2 Nonreactive Nonreactive 41 Evaluation [address] [facility] [place] [address] [phone] Laboratory test 02/09/2013 [facility] Ferritin < 10 ng/mL Low 11-307 finding [address] [place] [address] [phone] TSH (Thyroid Stimulating Horm) 1.46 miu/mL 0.34-5.60 Iron & Iron Binding 02/09/2013 [facility] Iron 88 g/dL 28- 170 Capacity [address] [place] [address] [phone] Unsaturated Iron Binding 322 g/dL Total Iron Binding Capacity 410 g/dL 250-450 % Iron Saturation 21 % 15-55 Vitamin B12 And 02/09/2013 [facility] Vitamin B12 177 pg/mL Low 180-914 Folate Serum [address] [place] [address] [phone] Folate 6.4 ng/mL 2-16 CBC With 02/09/2013 [facility] White Blood 7.3 10^3/uL 4.8- 10.8 Manual Diff [address] [facility] [place] [address] [phone] Red Blood Count 3.92 10^6/uL Low 4.0-5.4 Hemoglobin 11.9 g/dL Low 12.0-16.0 Hematocrit 36 % 35-47 Mean Corpuscular Volume 91 fL 80-97 Mean Corpuscular Hemoglobin 30 pg 27-31 Mean Corpuscular HGB Conc 33 g/dL 31-36 Red Cell Distribution Width 15 % 10.5-15 Platelet Count 257 10^3/uL 150-450 Mean Platelet Volume 9 um3 7.4-10.4 Abs Neutrophils 5.7 10^3/uL 1.5-7.7 Abs Lymphocytes 0.9 10^3/uL Low 1.0-4.8 Abs Monocytes 0.7 10^3/uL 0-0.8 Abs Eosinophils 0 10^3/uL 0-0.6 Abs Basophils 0 10^3/uL 0-0.2 Abs Nucleated RBC 0 10^3/uL Neutrophil % 74 % 38-83 Lymphocytes % 23 % Low 25-47 Monocytes % 3 % 0-13 RBC Morphology Normal Normal Urine Culture 09/26/2012 [facility] Urine Culture (SEE NOTE) [address] [place] [address] [phone] Laboratory test 09/23/2012 [facility] Beta HCG < 2.1 MIU/ML 0.0-5.0 [address] [place] [address] [phone] Laboratory test 09/23/2012 [facility] HIV 1 2 AB Nonreactive Nonreactive [address] [place] [address] [phone] Comp Metabolic 09/23/2012 [facility] Sodium 135 mmol/L 133- [address] [place] [address] [phone] Potassium 4.3 mmol/L 3.5-5.0 Chloride 102 mmol/L 101-111 Co2 Carbon Dioxide 27.0 mmol/L 22-32 Anion Gap 6.0 mmol/L 2-11 Glucose 90 mg/dL 70-100 Blood Urea Nitrogen 11 mg/dL 6-24 Creatinine 0.60 mg/dL 0.50-1.40 BUN/Creatinine Ratio 18.3 8-20 Calcium 8.6 mg/dL 8.1-9.9 Total Protein 6.9 g/dL 6.2-8.1 Albumin 3.7 g/dL 3.6-5.4 Globulin 3.2 g/dL 2-4 Albumin/Globulin Ratio 1.2 1-3 Total Bilirubin 0.8 mg/dL 0.4-1.5 Alkaline Phosphatase 55 U/L 30-110 Alt 16 U/L 14-54 Ast 28 U/L 12-42 Egfr Non- 119.0 >60 Egfr 153.1 >60 45 CBC No Diff 09/23/2012 [facility] White Blood 14.0 10^3/uL High 4.8-10.[address] [place] [address] [phone] Red Blood Count 4.20 10^6/uL 4.0-5.4 Hemoglobin 11.9 g/dL Low 12.0-16.0 Hematocrit 37 % 35-47 Mean Corpuscular Volume 89 fL 80-97 Mean Corpuscular Hemoglobin 28 pg 27-31 Mean Corpuscular HGB Conc 32 g/dL 31-36 Red Cell Distribution Width 15 % 10.5-15 Platelet Count 319 10^3/uL 150-450 Mean Platelet Volume 9 um3 7.4-10.4 Urine Culture And 09/23/2012 [facility] Urine (SEE NOTE) [address] [place] [address] [phone] Urine Microscopic 09/23/2012 [facility] Urine WBC 2+ (>10-30 None Seen [address] /hpf) [place] [address] [phone] Urine RBC 3+ (>10 /hpf) None Seen Urine Epithelial Cells 2+ Squamous /hpf None Seen Bacteria Urine 1+ None Seen Urinalysis 09/23/2012 [facility] Urine Color Yellow [address] [place] [address] [phone] Urine Appearance Clear Urine Specific [place] 1.005 Low 1.010-1.030 Urine Esterase 2+ Abnormal Negative Urine Nitrate Negative Negative Urine Urobilinogen Negative E.U./dL Negative Urine Protein Negative mg/dL Negative Urine pH 7.0 5-9 Urine Blood 3+ Abnormal Negative Urine Ketones Negative mg/dL Negative Urine Bilirubin Negative Negative 48 Urine Glucose Negative mg/dL Negative Ua Routine 06/02/2012 [facility] Ua Specific [place] 1.010 Ua PH 6.0 Ua Color yellow dark Ua Appera cloudy Ua WBC +++ Ua Protein trace Ua Glucose neg Ua Ketones trace Ua Bilirubin small Ua Urobilinogen neg Ua Nitrite neg Ua Occult Blood trace Herpes Simplex 06/02/2012 [facility] Herpes Simplex Negative Negative Type 1&[address] Type 1 [place] [address] [phone] Herpex Simplex Type 2 Igg Negative Negative 49 Vad 06/02/2012 [facility] Vad Final Nonreactive Nonreactive [address] [place] [address] [phone] Hep B Nina 06/02/2012 [facility] Hepatitis B Nonreactive Nonreactive Ag/Hep C [address] [place] [address] [phone] Hepatitis C Antibody Nonreactive Nonreactive Laboratory 06/02/2012 [facility] Bacterial 51 test finding [address] Vaginosis <SEE NOTE> NAOMI Nickerson50 Smear [phone] GC/Chlamydia 06/02/2012 [facility] M [address] <SEE NOTE> NAOMI Nickerson40 [phone] Laboratory 06/02/2012 [facility] Cytology [address] <SEE NOTE> [place] [id number] [phone] CBC Auto Diff 03/27/2012 [facility] White Blood 10.6 CUMM 4.8 - 101 Count 10.8 [place] [address] [phone] Red Cell Count 3.73 CUMM Low 4.2-5.4 Hemoglobin 11.0 g/dL Low 12.0-16.0 Hematocrit 33 % Low 35-47 Mean Corpuscular Volume 88 um3 79-97 Mean Corpuscular Hemoglob 30 pg 27-31 Mean Corpuscular HGB Cone 34 g/dL 32-36 Redcell Distribution WDTH 15 % 10.5-15 Platelet Count 276 CUMM 150-450 Mean Platelet Volume 9.0 um3 7.4-10.4 Gran % 71.3 % 38-83 Lymph % 21.2 % Low 25-47 Mononuclear % 6.6 % 1-9 Eosinophil % 0.6 % 0-6 Basophil % 0.3 % 0-2 Abs Lymphs 2.3 1.0-4.8 Abs Mononuclear 0.7 0-0.8 Absolute Neutrophil Count 7.5 1.5-7.7 Abs Eosinophils 0.1 0-0.6 Abs Basophils 0 0-0.2 Laboratory test 03/27/2012 [facility] NEGATIVE Negative [address] (HCG) Serum [place] [address] [phone] Urinalysis 03/27/2012 [facility] Ua Color YELLOW Yellow W/Microscopic [address] [place] [address] [phone] Appearance-Urine CLEAR Clear Specific [place]-Ur 1.016 1.010-1.030 Esterase-Urine 1+ Abnormal Negative Nitrite NEGATIVE Negative [id number] NEGATIVE Negative Protein-Urine NEGATIVE Negative PH-Urine 6.5 5-9 Blood-Urine NEGATIVE Negative Ketones-Urine NEGATIVE Negative Bilirubin-Ur NEGATIVE Negative Glucose-Urine NEGATIVE Negative WBC-Urine 3-5 0-5 RBC-Urine 0-2 0-2 Epith Cells-Ur FEW None Bacteria-Urine 1+ None Urine Drug 03/27/2012 [facility] Amphetamines NONE DETECTED None SCR ED & [address] Urine [place] [address] [phone] Barbituates Urine Screen NONE DETECTED None Detect Benzodiazepine Ur Screen POSITIVE Abnormal None Detect Cannabinoid Urine Screen POSITIVE Abnormal None Detect Cocaine Metabolites Urine NONE DETECTED None Detect Opiates Urine Screen POSITIVE Abnormal None Detect PCP Urine Screen NONE DETECTED None Detect 55 Comp Metabolic Panel 03/27/2012 [facility] Sodium 138 mmol/L 135-[address] [place] [address] [phone] Potassium 3.9 mmol/L 3.5-5.0 Chloride 109 mmol/L 101-111 Co2 (Carbon Dioxide) 26.0 mmol/L 22-32 Anion Gap 3.0 mmol/L 2-11 56 Glucose 95 mg/dL 70-100 BUN 12 mg/dL 6-24 Creatinine 0.6 mg/dL 0.50-1.40 One Over Creatinine 1.66 BUN/Creatinine Ratio 20.0 8-20 Calcium 8.3 mg/dL 8.1-9.9 Total Protein 6.2 GM/DL 6.2-8.1 Albumin 3.5 GM/DL Low 3.6-5.4 Globulin 2.7 GM/DL 2-4 Albumin/Globulin Ratio 1.3 1-3 Bilirubin Total 0.9 mg/dL 0.4-1.5 57 Alkaline Phosphatase 49 U/L 30-110 Alt (SGPT) 12 U/L Low 14-54 Ast (Sgot) 15 U/L 12-42 eGFR Non- 119.0 > 60 eGFR 153.1 > 60 58 Laboratory test 03/27/2012 [facility] Acetaminophen < 10 g/mL Low 10-30 [address] [place] [address] [phone] Alcohol < 10.0 mg/dL None Detected 60 Salicylate < 4.0 mg/dL Less Than 30 61 TSH 4.42 MIU/ML 0.34-5.60 Laboratory 01/01/2012 [facility] Throat 62 test finding [address] Culture <SEE NOTE> NAOMI Nickerson Full [phone] Vad 12/03/2011 [facility] Vad Final Nonreactive Nonreactive [address] [place] [address] [phone] Comp 12/03/2011 [facility] Sodium 136 mmol/L 135-[address] Panel [place] [id number] [phone] Potassium 4.0 mmol/L 3.5-5.0 Chloride 101 mmol/L 101-111 Co2 (Carbon Dioxide) 29.0 mmol/L 22-32 Anion Gap 6.0 mmol/L 2-11 64 Glucose 100 mg/dL 70-100 BUN 9 mg/dL 6-24 Creatinine 0.7 mg/dL 0.50-1.40 One Over Creatinine 1.42 BUN/Creatinine Ratio 12.9 8-20 Calcium 8.8 mg/dL 8.1-9.9 Total Protein 7.0 GM/DL 6.2-8.1 Albumin 3.9 GM/DL 3.6-5.4 Globulin 3.1 GM/DL 2-4 Albumin/Globulin Ratio 1.3 1-3 Bilirubin Total 0.5 mg/dL 0.4-1.5 65 Alkaline Phosphatase 56 U/L 30-110 Alt (SGPT) 12 U/L Low 14-54 Ast (Sgot) 15 U/L 12-42 eGFR Non- 99.6 > 60 eGFR 128.1 > 60 66 CBC Auto Diff 12/03/2011 [facility] White Blood 6.2 CUMM 4.8- 10.[address] Count [place] [id number] [phone] Red Cell Count 4.02 CUMM Low 4.2-5.4 Hemoglobin 12.3 g/dL 12.0-16.0 Hematocrit 35 % 35-47 Mean Corpuscular Volume 88 um3 79-97 Mean Corpuscular Hemoglob 31 pg 27-31 Mean Corpuscular HGB Cone 35 g/dL 32-36 Redcell Distribution WDTH 15 % 10.5-15 Platelet Count 336 CUMM 150-450 Mean Platelet Volume 9.0 um3 7.4-10.4 Gran % 64.2 % 38-83 Lymph % 28.8 % 25-47 Mononuclear % 5.8 % 1-9 Eosinophil % 0.8 % 0-6 Basophil % 0.4 % 0-2 Abs Lymphs 1.8 1.0-4.8 Abs Mononuclear 0.4 0-0.8 Absolute Neutrophil Count 4.0 1.5-7.7 Abs Eosinophils 0 0-0.6 Abs Basophils 0 0-0.2 Laboratory test 12/01/2011 [facility] Methylmalonic 0.17 <= 0.40 [address] Acid nmol/[place] [address] [phone] Vitamin B12 And 11/24/2011 [facility] Vitamin B12 217 pg/mL 180-914 Folate Serum [address] [place] [address] [phone] Folic Acid 6.6 NG/ML See Below 68 CBC Auto Diff 11/24/2011 [facility] White Blood 8.9 CUMM 4.8- 10.[address] [place] [address] [phone] Red Cell Count 3.99 CUMM Low 4.2-5.4 Hemoglobin 12.1 g/dL 12.0-16.0 Hematocrit 36 % 35-47 Mean Corpuscular Volume 89 um3 79-97 Mean Corpuscular Hemoglob 30 pg 27-31 Mean Corpuscular HGB Cone 34 g/dL 32-36 Redcell Distribution WDTH 15 % 10.5-15 Platelet Count 355 CUMM 150-450 Mean Platelet Volume 9.3 um3 7.4-10.4 69 Manual Differential 11/24/2011 [facility] Polysegmented 73 % 38-[address] [place] [address] [phone] Band Neutrophil 3 % 0-8 Lymphocyte 20 % Low 25-47 Monocyte 4 % 0-13 Absolute Neutrophil Count 6.7 Anisocytosis SLIGHT Laboratory test 08/13/2011 [facility] Mumps Igg Positive Negative [address] [place] [address] [phone] Rubella Screen EQUIVOCAL Immune 71 Rubeola Igg AB Positive Negative 72 Pertussis PCR 07/28/2011 [facility] Bordetella This test was [address] Pertussis de <SEE NOTE> [place] [address] [phone] Bordetella Pertussis Negative for Bor <SEE NOTE> 74 Pertussis PCR 07/21/2011 [facility] Bordetella This test was [address] Pertussis de <SEE NOTE> [place] [id number] [phone] Bordetella Pertussis Negative for Bor <SEE NOTE> 76 Vitamin B12 And 01/28/2011 [facility] Vitamin B12 243 pg/mL 180-914 Folate Serum [address] [place] [address] [phone] Folic Acid 4.6 NG/ML 2-16 Iron & Iron Binding 01/28/2011 [facility] Iron Total 43 g/dL 28-[address] [place] [address] [phone] Unsaturated Iron Binding 408 g/dL Total Iron Binding Capacity 451 g/dL High 250-450 % Iron Saturation 10 % Low 15-55 CBC Auto Diff 01/28/2011 [facility] White Blood 7.6 CUMM 4.8- 10.[address] [place] [address] [phone] Red Cell Count 3.93 CUMM Low 4.2-5.4 Hemoglobin 11.3 g/dL Low 12.0-16.0 Hematocrit 34 % Low 35-47 Mean Corpuscular Volume 87 um3 79-97 Mean Corpuscular Hemoglob 29 pg 27-31 Mean Corpuscular HGB Cone 33 g/dL 32-36 Redcell Distribution WDTH 15 % 10.5-15 Platelet Count 379 CUMM 150-450 Mean Platelet Volume 9.2 um3 7.4-10.4 Gran % 61.1 % 38-83 Lymph % 30.5 % 25-47 Mononuclear % 6.8 % 1-9 Eosinophil % 1.1 % 0-6 Basophil % 0.5 % 0-2 Abs Lymphs 2.3 1.0-4.8 Abs Mononuclear 0.5 0-0.8 Absolute Neutrophil Count 4.6 1.5-7.7 Abs Eosinophils 0.1 0-0.6 Abs Basophils 0 0-0.2 Laboratory test 12/09/2010 [facility] Vitamin B12 > 1500 High 180-[address] pg/[place] [address] [phone] CBC With 11/28/2010 [facility] White Blood 10.3 CUMM 4.8- 10.8 Electronic Diff [address] [place] [address] [phone] Red Cell Count 3.84 CUMM Low 4.2-5.4 Hemoglobin 11.4 g/dL Low 12.0-16.0 Hematocrit 34 % Low 35-47 Mean Corpuscular Volume 87 um3 79-97 Mean Corpuscular Hemoglob 30 pg 27-31 Mean Corpuscular HGB Cone 34 g/dL 32-36 Redcell Distribution WDTH 15 % 10.5-15 Platelet Count 354 CUMM 150-450 Mean Platelet Volume 8.3 um3 7.4-10.4 Gran % 67.1 % 38-83 Lymph % 26.3 % 25-47 Mononuclear % 5.4 % 1-9 Eosinophil % 0.9 % 0-6 Basophil % 0.3 % 0-2 Abs Lymphs 2.7 1.0-4.8 Abs Mononuclear 0.6 0-0.8 Absolute Neutrophil Count 6.9 1.5-7.7 Abs Eosinophils 0.1 0-0.6 Abs Basophils 0 0-0.2 Abo Type And RH 11/28/2010 [facility] Patient Blood A NEGATIVE [address] [place] [address] [phone] Laboratory test 11/28/2010 [facility] Hemoglobin 0.0 RATIO [address] [place] [address] [phone] Type & Screen 11/28/2010 [facility] Rhogam [id number] <SEE NOTE> [place] [address] [phone] Patient Blood Type A NEGATIVE Antibody Screen NEGATIVE Laboratory test 07/09/2010 [facility] Clotest NEGATIVE finding [address] [place] [address] [phone] Surgical Pathology 07/09/2010 [facility] Surgical [address] Pathology ---- <[place] [address] NOTE> [phone] Laboratory test 06/27/2010 [facility] Cortisol 9.1 g/dL [address] [place] [address] [phone] Hemoglobin 06/19/2010 [facility] Hemoglobin A2 2.4 % 2.0- Electropheresis [address] [place] [address] [phone] Hemoglobin F 0.0 % 0.0-2.0 Hemoglobin A 97.6 % 95.0-98.0 Hemoglobin Variant 0.0 % () 81 HGB Electrophoresis Interp SEE BELOW () 82 [place] Electrophoresis Confirm SEE BELOW () 83 Hemoglobin S SEE BELOW Negative 84 Manual Differential 06/13/2010 [facility] Polysegmented 57 % 38-83 [facility] [place] [address] [phone] Lymphocyte 30 % 25-47 Monocyte 7 % 0-13 Eosinophil 5 % 0-6 Atypical Lymph 1 % 0-6 Absolute Neutrophil Count 4.9 Anisocytosis SLIGHT Iron & Iron Binding 06/13/2010 [facility] Iron Total 41 g/dL 28-170 Capacity [address] [place] [address] [phone] Unsaturated Iron Binding 380 g/dL Total Iron Binding Capacity 421 g/dL 250-450 % Iron Saturation 10 % Low 15-55 Laboratory test 06/13/2010 [facility] Vitamin B12 152 pg/mL Low 180-914 finding [address] [place] [address] [phone] Folic Acid 4.3 NG/ML 2-16 CBC With 06/13/2010 [facility] White Blood 8.6 CUMM 4.8-10.8 Electronic Diff 101 [facility] [place] [address] [phone] Red Cell Count 4.16 CUMM Low 4.2-5.4 Hemoglobin 11.7 g/dL Low 12.0-16.0 Hematocrit 35 % 35-47 Mean Corpuscular Volume 84 um3 79-97 Mean Corpuscular Hemoglob 28 pg 27-31 Mean Corpuscular HGB Cone 33 g/dL 32-36 Redcell Distribution WDTH 16 % High 10.5-15 Platelet Count 373 CUMM 150-450 Mean Platelet Volume 8.1 um3 7.4-10.4 85 Comp Metabolic Panel 06/13/2010 [facility] Sodium 133 mmol/L Low 135-145 [address] [place] [address] [phone] Potassium 3.8 mmol/L 3.5-5.0 Chloride 103 mmol/L 101-111 Co2 (Carbon Dioxide) 23.0 mmol/L 22-32 Anion Gap 7.0 mmol/L 2-11 86 Glucose 90 mg/dL 70-100 87 BUN 10 mg/dL 6-24 Creatinine 0.60 mg/dL 0.50-1.40 One Over Creatinine 1.60 BUN/Creatinine Ratio 16.7 8-20 Calcium 9.0 mg/dL 8.1-9.9 Total Protein 6.5 GM/DL 6.2-8.1 Albumin 4.1 GM/DL 3.6-5.4 Globulin 2.4 GM/DL 2-4 Albumin/Globulin Ratio 1.7 1-3 Bilirubin Total 0.6 mg/dL 0.4-1.5 88 Alkaline Phosphatase 71 U/L 30-110 Alt (SGPT) 12 U/L Low 14-54 Ast (Sgot) 15 U/L 12-42 eGFR Non- 128.4 > 60 eGFR 155.4 > 60 89 Laboratory test 06/13/2010 [facility] TSH 2.24 MIU/ML 0.34- 5.60 finding [address] [place] [address] [phone] Urine Culture & 04/26/2010 [facility] Urine Culture NF1 [address] [place] [address] [phone] Urinalysis 04/26/2010 [facility] Ua Color YELLOW Yellow W/Microscopic [address] [place] [address] [phone] Appearance-Urine TURBID Clear Specific [place]-Ur 1.027 1.010-1.030 Esterase-Urine NEGATIVE Negative Nitrite NEGATIVE Negative Bbddauncaioa-Ar-RSL NEGATIVE Negative Protein-Urine 1+ Abnormal Negative PH-Urine 6.0 5-9 Blood-Urine 3+ Abnormal Negative Ketones-Urine NEGATIVE Negative Bilirubin-Ur NEGATIVE Negative Glucose-Urine NEGATIVE Negative WBC-Urine 1-4 0-5 RBC-Urine 10-25 0-2 Epith Cells-Ur SMALL None Bacteria-Urine TRACE None Amorphous Sed-U 3+ None CBC With 01/20/2010 [facility] White Blood 11.7 CUMM High 4.8- 10.8 Manual Diff [address] [place] [address] [phone] Red Cell Count 4.21 CUMM 4.2-5.4 Hemoglobin 11.9 g/dL Low 12.0-16.0 Hematocrit 36 % 35-47 Mean Corpuscular Volume 85 um3 79-97 Mean Corpuscular Hemoglob 28 pg 27-31 Mean Corpuscular HGB Cone 33 g/dL 32-36 Redcell Distribution WDTH 16 % High 10.5-15 Platelet Count 419 CUMM 150-450 Mean Platelet Volume 8.9 um3 7.4-10.4 Polysegmented Neutrophil 84 % High 38-83 Band Neutrophil 3 % 0-8 Lymphocyte 11 % Low 25-47 Monocyte 2 % 0-13 Absolute Neutrophil Count 10.1 Anisocytosis SLIGHT Comp Metabolic Panel 01/20/2010 [facility] Sodium 136 mmol/L 135-[address] [place] [address] [phone] Potassium 4.5 mmol/L 3.5-5.0 Chloride 99 mmol/L Low 101-111 Co2 (Carbon Dioxide) 27.0 mmol/L 22-32 Anion Gap 10.0 mmol/L 2-11 91 Glucose 110 mg/dL High 70-100 92 BUN 11 mg/dL 6-24 Creatinine 0.80 mg/dL 0.50-1.40 One Over Creatinine 1.20 BUN/Creatinine Ratio 13.8 8-20 Calcium 9.1 mg/dL 8.1-9.9 93 Total Protein 7.1 GM/DL 6.2-8.1 Albumin 4.0 GM/DL 3.6-5.4 Globulin 3.1 GM/DL 2-4 Albumin/Globulin Ratio 1.3 1-3 Bilirubin Total 0.5 mg/dL 0.4-1.5 94 Alkaline Phosphatase 76 U/L 30-110 Alt (SGPT) 11 U/L Low 14-54 Ast (Sgot) 18 U/L 12-42 eGFR Non- 92.2 > 60 eGFR 111.5 > 60 95 Liver Function 01/20/2010 [facility] Bilirubin Direct 0.1 mg/dL 0.1-0.[address] [place] [address] [phone] Indirect Bilirubin 0.4 mg/dL 0.1-0.75 Laboratory test finding 01/20/2010 [facility] Amylase 37 U/L 30-125 [address] [place] [address] [phone] Lipase 19 U/L Low 22-51 Urinalysis W/Microscopic 01/11/2010 [facility] Ua Color YELLOW Yellow [address] [place] [address] [phone] Appearance-Urine CLEAR Clear Specific [place]-Ur 1.010 1.010-1.030 Esterase-Urine 2+ Abnormal Negative Nitrite NEGATIVE Negative Pnxeqwecdhdt-Uk-GKG NEGATIVE Negative Protein-Urine NEGATIVE Negative PH-Urine 5.5 5-9 Blood-Urine TRACE Abnormal Negative Ketones-Urine NEGATIVE Negative Bilirubin-Ur NEGATIVE Negative Glucose-Urine NEGATIVE Negative WBC-Urine 5-10 Abnormal 0-5 RBC-Urine NONE 0-2 Epith Cells-Ur MANY None Bacteria-Urine 3+ None Crystals-Urine (SEE NOTE) None 96 Urine Culture & 01/11/2010 [facility] Urine Culture ESCHERICHIA COLI [address] [facility] [address] [phone] Ursc-1 01/11/2010 [facility] Ampicillin >=32 R [address] [place] [address] [phone] Amikacin <=2 S Ciprofloxacin <=0.25 S Ceftriaxone <=1 S Cefazolin <=4 S Nitrofurantoin <=16 S Gentamicin <=1 S Imipenem <=1 S Levofloxacin <=0.12 S Trimeth-Sulfa <=20 S Ceftazidime <=1 S Tigecycline <=0.5 S Piperacillin/Tazobactam <=4 S CMP Panel Stat 10/15/2009 [facility] Sodium 138 mmol/L 135- 145 [address] [place] [address] [phone] Potassium 3.5 mmol/L 3.5-5.0 Chloride 103 mmol/L 101-111 Co2 (Carbon Dioxide) 28.0 mmol/L 22-32 Anion Gap 7.0 mmol/L 2-11 98 Glucose 105 mg/dL High 70-100 99 BUN 9 mg/dL 6-24 Creatinine 0.80 mg/dL 0.50-1.40 One Over Creatinine 1.20 BUN/Creatinine Ratio 11.3 8-20 Calcium 8.6 mg/dL 8.1-9.9 100 Total Protein 6.5 GM/DL 6.2-8.1 Albumin 3.6 GM/DL 3.6-5.4 Globulin 2.9 GM/DL 2-4 Albumin/Globulin Ratio 1.2 1-3 Bilirubin Total 0.3 mg/dL Low 0.4-1.5 101 Alkaline Phosphatase 61 U/L 30-110 Alt (SGPT) 12 U/L Low 14-54 Ast (Sgot) 17 U/L 12-42 eGFR Non- 92.9 > 60 eGFR 112.4 > 60 102 CBC With 10/15/2009 [facility] White Blood 12.0 CUMM High 4.8- 10.8 Manual Diff [address] Count Stat [place], [place] [phone] Red Cell Count 4.17 CUMM Low 4.2-5.4 Hemoglobin 11.5 g/dL Low 12.0-16.0 Hematocrit 36 % 35-47 Mean Corpuscular Volume 85 um3 79-97 Mean Corpuscular Hemoglob 28 pg 27-31 Mean Corpuscular HGB Cone 32 g/dL 32-36 Redcell Distribution WDTH 16 % High 10.5-15 Platelet Count 413 CUMM 150-450 Mean Platelet Volume 7.8 um3 7.4-10.4 Polysegmented Neutrophil 73 % 38-83 Band Neutrophil 2 % 0-8 Lymphocyte 18 % Low 25-47 Monocyte 6 % 0-13 Eosenophil 1 % 0-6 Absolute Neutrophil Count 9.0 Anisocytosis 1+ 1 [id number] 2 It is recognized that currently available assays for the detection of antibodies to HIV-1 and/or HIV-2 may not detect all infected individuals. HIV antibodies may be undetectable in some stages of the infection and in some clinical conditions. The performance of this assay has not been established for populations of infants or children. Assayed by Chemiluminescence Microparticle Immunoassay on the Siemens Advia Centaur CP. Values obtained with different methods or kits cannot be used interchangeably.The diagnostic specificity of the ADVIA Centaur 1/O/2 Enhanced assay in the low risk population was 99.90% (6052/6058) with a 95% confidence interval of 99.78 to 99.96%. 3 Rail Crew Member: [id number] 4 Rail Crew Member: [id number] Rail Crew Member: [id number] SEE RESULT BELOW Name: MICHAEL DELUNA : [address]: Maggi Montez Acct: [id number] Unit: [id number] AGE: 31 Location: [facility] Re08/22/17 SEX: F Status: DEP ER SPEC: [id number] MART: 08/22/17-1210 [facility] DR: Maggi Norman DO REQ: [id number] RECD: 08/22/17 STATUS: DONNA LEWIS DR: Ronal Be MD _ SOURCE: URINE SPDESC: ORDERED: Urine Culture COMMENTS: [id number] Procedure Result Reported Site Urine Culture Final 08/24/17- 0835 ML No growth of clinically significant organisms * ML - MAIN LAB (PSC1) . END OF REPORT * ML=Testing performed at Main Lab DEPARTMENT OF PATHOLOGY, [address] [place] [address] Laurent Watt M.D. Director [facility] # [id number] 8 Rail Crew Member: [id number] Rail Crew Member: [id number] SEE RESULT BELOW Name: ADORE DELUNARA Koch : [address]: Aureliano Duron MD Acct: [id number] Unit: [id number] AGE: 31 Location: ED Re07/24/17 SEX: F Status: DEP ER SPEC: [id number] MART: 07/24/17-1003 [facility] DR: Aureliano Duron MD REQ: [id number] RECD: 07/24/17 STATUS: DONNA LEWIS DR: Ronal Be MD _ SOURCE: URINE [facility]: ORDERED: Urine Culture Procedure Result Reported Site Urine Culture Final 07/25/17- 1212 ML No growth of clinically significant organisms * ML - MAIN LAB ([facility]) . END OF REPORT * ML=Testing performed at Main Lab DEPARTMENT OF PATHOLOGY, [address] [place] [address] Laurent Watt M.D. Director [facility] # [id number] 11 Because ethnic data is not always readily available, this report includes an eGFR for both -Americans and non- Americans. The National Kidney Disease Education Program (NKDEP) does not endorse the use of the MDRD equation for patients that are not between the ages of 18 and 70, are , have extremes of body size, muscle mass, or nutritional status, or are non- or non-. According to the National Kidney Foundation, irrespective of diagnosis, the stage of the disease is based on the level of kidney function: Stage Description GFR(mL/min/1.73 m(2)) 1 Kidney damage with normal or decreased GFR 90 2 Kidney damage with mild decrease in GFR 60-89 3 Moderate decrease in GFR 30-59 4 Severe decrease in GFR 15-29 5 Kidney failure <15 (or dialysis) 12 Acute inflammation: >10.00 13 SEE RESULT BELOW Name: MICHAEL DELUNA : [address]: Maggi Montez Acct: [id number] Unit: [id number] AGE: 29 Location: [facility] Re06/04/15 SEX: F Status: DEP ER SPEC: [id number] MART: 06/04/15-1007 [facility] DR: Maggi Norman DO REQ: [id number] RECD: 06/04/15-1626 STATUS: DONNA LEWIS DR: [employer] [employer] Ronal Be MD _ SOURCE: THROAT SPDESC: ORDERED: Throat Beta Str Procedure Result Verified Site Throat Beta Strep Culture Final 06/06/15- 811 ML Negative For Group A Beta Streptococcus * ML - MAIN LAB (PSC1) . END OF REPORT * ML=Testing performed at Main Lab DEPARTMENT OF PATHOLOGY, [address] [place] [address] Laurent Watt M.D. Director [facility] # [id number] 14 PT IS FASTING 15 PT IS FASTING 16 Desirable <150 Borderline high 150-199 High 200-499 Very High >500 17 Desirable <200 Borderline high 200-239 High >239 18 Low <40 Desirable: 40-60 High: >60 19 Desirable: <100 mg/dL Near Optimal: 100-129 mg/dL Borderline High: 130-159 mg/dL High: 160-189 mg/dL Very High: >189 mg/dL 20 Because ethnic data is not always readily available, this report includes an eGFR for both -Americans and non- Americans. The National Kidney Disease Education Program (NKDEP) does not endorse the use of the MDRD equation for patients that are not between the ages of 18 and 70, are , have extremes of body size, muscle mass, or nutritional status, or are non- or non-. According to the National Kidney Foundation, irrespective of diagnosis, the stage of the disease is based on the level of kidney function: Stage Description GFR(mL/min/1.73 m(2)) 1 Kidney damage with normal or decreased GFR 90 2 Kidney damage with mild decrease in GFR 60-89 3 Moderate decrease in GFR 30-59 4 Severe decrease in GFR 15-29 5 Kidney failure <15 (or dialysis) 21 Normal Range 180 to 914 Indeterminate Range 145 to 180 Deficient Range <145 22 PT IS FASTING 23 RUN DATE: 10/17/14 [facility] LAB LIVE PAGE 1 RUN TIME: [address] [place] [address] Specimen Inquiry Name: IMCHAEL DELUNA : [address]: Nic Chu NP Acct: [id number] Unit: [id number] AGE: 28 Location: [facility] Re10/17/14 SEX: F Status: REG REF SPEC: [id number] MART: 10/17/14-[address]: Nic Chu NP REQ: [id number] RECD: 10/17/14 STATUS: COMP _ SOURCE: REBECAIban SPDESC: ORDERED: Rapid Flu A B QUERIES: Provider Requisition # [id number] Procedure Result Verified Site Rapid Influenza A B Antigen Final 10/17/14- 1613 ML Organism 1 Negative Influenza A B Antigen testing by enzyme immunoassay. Cell culture testing can be performed to confirm negative test results and to assist in detecting other viruses that can produce similar clinical symptoms. Please notify Microbiology Lab if further testing is desired. END OF REPORT * ML=Testing performed at Main Lab DEPARTMENT OF PATHOLOGY, [facility] [employer] [place], [place] [address] Laurent Watt M.D. Director [facility] # [id number] 24 RUN DATE: 05/26/14 [facility] LAB LIVE PAGE 1 RUN TIME: 6700 [facility] [employer] [place], [place] [address] Specimen Inquiry Name: MICHAEL DELUNA : [address]: Susanne Stratton MD Acct: [id number] Unit: [id number] AGE: 28 Location: [facility] Re05/24/14 SEX: F Status: DEP REF SPEC: [id number] MART: 05/24/14-[address]: Susanne Stratton MD REQ: [id number] RECD: 05/24/14 STATUS: DONNA LEWIS DR: Ronal Be MD _ SOURCE: URINE SPDESC: ORDERED: Urine Culture Procedure Result Verified Site Urine Culture Final 05/26/14- 09 ML Organism 1 NORMAL RAUL Hertel Count 75-100,000 (Many) CFU/ML END OF REPORT * ML=Testing performed at Main Lab DEPARTMENT OF PATHOLOGY, [facility] [employer] [place], [place] [address] Laurent Watt M.D. Director [facility] # [id number] 25 RUN DATE: 05/19/14 [facility] LAB LIVE PAGE 1 RUN TIME: 1031 [facility] [employer] [place], [place] [address] Specimen Inquiry Name: MICHAEL DELUNA : [address]: Roosevelt Wilson MD Acct: [id number] Unit: [id number] AGE: 28 Location: [facility] Re05/17/14 SEX: F Status: DEP REF SPEC: [id number] MART: 05/17/14-[address]: Roosevelt Wilson MD REQ: [id number] RECD: 05/17/14 STATUS: DONNA LEWIS DR: Osbaldo Peoples MD _ SOURCE: URINE SPDESC: ORDERED: Urine Culture QUERIES: Urine Source: Clean Catch Procedure Result Verified Site Urine Culture Final 05/19/14- 1031 ML Organism 1 NORMAL RAUL Hertel Count 10-25,000 (Moderate) CFU/ML END OF REPORT * ML=Testing performed at Main Lab DEPARTMENT OF PATHOLOGY, [facility] [employer] [place], [place] [address] Laurent Watt M.D. Director [facility] # [id number] 26 No Membrane Rupture 27 RUN DATE: 05/10/14 [facility] LAB LIVE PAGE 1 RUN TIME: 1023 [facility] [employer] [place], [place] [address] Specimen Inquiry Name: MICHAEL DELUNA : [address]: Eleanor Eduardo MD Acct: [id number] Unit: [id number] AGE: 28 Location: [facility] Re05/08/14 SEX: F Status: DEP REF SPEC: [id number] MART: 05/08/14 [facility] DR: Eleanor Eduardo MD REQ: [id number] RECD: 05/08/14 STATUS: DONNA LEWIS DR: Osbaldo Peoples MD _ SOURCE: URINE SPDESC: ORDERED: Urine Culture Procedure Result Verified Site Urine Culture Final 05/10/14- 1023 ML Organism 1 NORMAL RAUL Hertel Count 50-75,000 (Many) CFU/ML END OF REPORT * ML=Testing performed at Main Lab DEPARTMENT OF PATHOLOGY, [facility] [employer] [place], [place] [address] Laurent Watt M.D. Director [facility] # [id number] 28 RUN DATE: 03/04/14 [facility] LAB LIVE PAGE 1 RUN TIME: 1040 [facility] [employer] [place], [place] [address] Specimen Inquiry Name: MICHAEL DELUNA : [address]: Salome Johns NP Acct: [id number] Unit: [id number] AGE: 28 Location: [facility] Re03/02/14 SEX: F Status: REG REF SPEC: [id number] MART: 03/02/14-[address]: Salome Johns NP REQ: [id number] RECD: 03/02/14 STATUS: COMP _ SOURCE: THROAT SPDESC: ORDERED: Throat Culture QUERIES: Medent Number [id number] Procedure Result Verified Site Throat Culture Final 03/04/14- 1039 ML Organism 1 NORMAL RAUL Quantity 2+ END OF REPORT * ML=Testing performed at Main Lab DEPARTMENT OF PATHOLOGY, [address] [place] [address] Laurent Watt M.D. Director [facility] # [id number] 29 Normal Range 180 to 914 Indeterminate Range 145 to 180 Deficient Range <145 30 Because ethnic data is not always readily available, this report includes an eGFR for both -Americans and non- Americans. The National Kidney Disease Education Program (NKDEP) does not endorse the use of the MDRD equation for patients that are not between the ages of 18 and 70, are , have extremes of body size, muscle mass, or nutritional status, or are non- or non-. According to the National Kidney Foundation, irrespective of diagnosis, the stage of the disease is based on the level of kidney function: Stage Description GFR(mL/min/1.73 m(2)) 1 Kidney damage with normal or decreased GFR 90 2 Kidney damage with mild decrease in GFR 60-89 3 Moderate decrease in GFR 30-59 4 Severe decrease in GFR 15-29 5 Kidney failure <15 (or dialysis) 31 Normal Range 180 to 914 Indeterminate Range 145 to 180 Deficient Range <145 32 Because ethnic data is not always readily available, this report includes an eGFR for both -Americans and non- Americans. The National Kidney Disease Education Program (NKDEP) does not endorse the use of the MDRD equation for patients that are not between the ages of 18 and 70, are , have extremes of body size, muscle mass, or nutritional status, or are non- or non-. According to the National Kidney Foundation, irrespective of diagnosis, the stage of the disease is based on the level of kidney function: Stage Description GFR(mL/min/1.73 m(2)) 1 Kidney damage with normal or decreased GFR 90 2 Kidney damage with mild decrease in GFR 60-89 3 Moderate decrease in GFR 30-59 4 Severe decrease in GFR 15-29 5 Kidney failure <15 (or dialysis) 33 Verbal to [id number] by [id number] at 2226 on 11/15/13. Results read back accurately. 34 <5.0 Negative 5.0 - 25.0 Indeterminate >25.0 Positive 35 Low risk: <1.0 mg/L Average risk: 1.0-3.0 mg/L High risk: >3.0 mg/L Acute inflammation: >10.0 mg/L 36 RUN DATE: 11/18/13 [facility] LAB LIVE PAGE 1 RUN TIME: [address] [place] [address] Specimen Inquiry Name: MICHAEL DELUNA : [address]: Jordan Wu MD Acct: [id number] Unit: [id number] AGE: 28 Location: ED Re11/15/13 SEX: F Status: DEP ER SPEC: [id number] MART: 11/15/13-2329 [facility] DR: Marjorie WHELAN REQ: [id number] RECD: 11/15/13 STATUS: COMP REHANHR DR: Osbaldo Wu MD _ SOURCE: URINE SPDESC: ORDERED: Urine Culture Procedure Result Verified Site Urine Culture Final 11/18/13- 0904 ML Organism 1 NORMAL RAUL Hertel Count 75-100,000 (Many) CFU/ML END OF REPORT * ML=Testing performed at Main Lab DEPARTMENT OF PATHOLOGY, [address], [place], [place] [address] Laurent Watt M.D. Director [facility] Permit #[id number] RUN DATE: 11/01/13 [facility] LAB LIVE PAGE 1 RUN TIME: [address] [place] [address] Specimen Inquiry Name: MICHAEL DELUNA : [address]: Dante Gorman MD Acct: [id number] Unit: [id number] AGE: 27 Location: [facility] Re10/31/13 SEX: F Status: REG REF SPEC: [id number] MART: 10/31/13 [facility] DR: Dante Gorman MD REQ: [id number] RECD: 11/01/13 STATUS: DONNA LEWIS DR: Osbaldo Peoples MD _ SOURCE: THIN [facility]: ORDERED: ANTON/Wanam RNA Procedure Result Verified Site Chlamydia Trachomatis RNA Final 11/01/13- 1342 ML NEGATIVE for Chlamydia trachomatis rRNA GC (N. gonorrhoeae) RNA Final 11/01/13- 1342 ML NEGATIVE for Neisseria gonorrhoeae rRNA A negative result does not preclude the presence of a C. trachomatis or N. gonorrhoeae infection because results are dependent on adequate specimen collection, absence of inhibitors, and sufficient rRNA to be detected. Test results may be affected by improper specimen collection, improper storage, technical error, or specimen mixup. Limitations of the Procedure: The Aptima Combo 2 Assay is not intended for the evaluation of suspected sexual abuse or for other medico-legal indications. For those patients for whom a false positive result may have adverse psychosocial impact, the CDC recommends retesting by a method using an alternate technology. Therapeutic failure or success cannot be determined with the Aptima Combo 2 Assay since nucleic acid may persist following appropriate antimicrobial therapy. Results from the Aptima Combo 2 Assay should be interpreted in conjunction with other laboratory and clinical data available to the clinican. Performance characteristics for detecting C. trachomatis and CONTINUED ON NEXT PAGE * ML=Testing performed at Main Lab DEPARTMENT OF PATHOLOGY, [facility] [employer] [place], [place] [address] Laurent Watt M.D. Director [facility] Permit #[id number] RUN DATE: 11/01/13 [facility] LAB LIVE PAGE 2 RUN TIME: 1341 [facility] [employer] [place], [place] [address] Specimen Inquiry Patient: MICHAEL DELUNA Zee [id number] (Continued) Specimen: [id number] Collected: 10/31/13 Received: 11/01/13-0044 (Continued) Procedure Result Verified Site GC (N. gonorrhoeae) RNA Final (continued) 11/01/13- 1342 N. gonorrhoeae are derived from high prevalence populations. Positive results in low prevalence populations should be interpreted carefully with the understanding that the likelihood of a false positive may be higher than a true positive. END OF REPORT * ML=Testing performed at Main Lab DEPARTMENT OF PATHOLOGY, [facility] [employer] [place], [place] [address] Laurent Watt M.D. Director [facility] Permit #[id number] 38 Because ethnic data is not always readily available, this report includes an eGFR for both -Americans and non- Americans. The National Kidney Disease Education Program (NKDEP) does not endorse the use of the MDRD equation for patients that are not between the ages of 18 and 70, are , have extremes of body size, muscle mass, or nutritional status, or are non- or non-. According to the National Kidney Foundation, irrespective of diagnosis, the stage of the disease is based on the level of kidney function: Stage Description GFR(mL/min/1.73 m(2)) 1 Kidney damage with normal or decreased GFR 90 2 Kidney damage with mild decrease in GFR 60-89 3 Moderate decrease in GFR 30-59 4 Severe decrease in GFR 15-29 5 Kidney failure <15 (or dialysis) 39 Males: < 5.0 miu/ml Non females < 5.0 miu/ml Approx gestational age approx HCG range 0-1 week < 5.0-50 1-2 weeks 50-500 2-3 weeks 100-5000 3-4 weeks 500-10,000 1-2 months 10,000-200,000 2-3 months 15,000-100,000 Please note: The intended use of this assay is the quantitative determination of HCG in human serum or plasma for the early detection of . These assays should not be used to diagnose any condition unrelated to . If an HCG level is inconsistent with, or unsupported by, clinical evidence, results should be confirmed by an alternate HCG method. 40 RUN DATE: 06/22/13 [facility] LAB LIVE PAGE 1 RUN TIME: [address] [place] [address] Specimen Inquiry Name: JOANNEMICHAEL : [address]: Maggi Montez Acct: [id number] Unit: [id number] AGE: 27 Location: [facility] Re06/20/13 SEX: F Status: DEP ER SPEC: [id number] MART: 06/20/13 [facility] DR: Maggi Norman DO REQ: [id number] RECD: 06/20/13 STATUS: DONNA LEWIS DR: Osbaldo Cuellar MD _ SOURCE: URINE SPDESC: ORDERED: Urine Culture Procedure Result Verified Site Urine Culture Final 06/22/13- 0940 ML Organism 1 NORMAL RAUL Hertel Count 10-25,000 (Moderate) CFU/ML END OF REPORT * ML=Testing performed at Main Lab DEPARTMENT OF PATHOLOGY, [facility] [employer] [place], [place] [address] Laurent Watt M.D. Director [facility] Permit #[id number] 41 It is recognized that currently available assays for the detection of antibodies to HIV-1 and/or HIV-2 may not detect all infected individuals. HIV antibodies may be undetectable in some stages of the infection and in some clinical conditions. The performance of this assay has not been established for populations of infants or children. Assayed by Chemiluminescence Microparticle Immunoassay on the Siemens Advia Centaur CP. Values obtained with different methods or kits cannot be used interchangeably.The diagnostic specificity of the ADVIA Centaur 1/O/2 Enhanced assay in the low risk population was 99.90% (6052/6058) with a 95% confidence interval of 99.78 to 99.96%. 42 RUN DATE: 09/29/12 [facility] LAB LIVE PAGE 1 RUN TIME: 856 [facility] [employer] [place], [place] [address] Specimen Inquiry Name: MICHAEL DELUNA : [address]: Jessica Fonseca MD Acct: [id number] Unit: [id number] AGE: 26 Location: [facility] Re09/26/12 SEX: F Status: DEP ER SPEC: [id number] MART: 09/26/12-[address]: Jessica Fonseca MD REQ: [id number] RECD: 09/27/12-110 STATUS: COMP REHANHR DR: Osbaldo Cuellar MD _ SOURCE: URINE SPDESC: ORDERED: Urine Culture Procedure Result Verified Site Urine Culture Final 09/29/12- 0857 ML No Growth Day 2 (<1,000 CFU/mL) END OF REPORT * ML=Testing performed at Main Lab DEPARTMENT OF PATHOLOGY, [address] [place] [address] Laurent Watt M.D. Director [facility] Permit #[id number] 43 Males: < 5.0 miu/ml Non females < 5.0 miu/ml Approx gestational age approx HCG range 0-1 week < 5.0-50 1-2 weeks 50-500 2-3 weeks 100-5000 3-4 weeks 500-10,000 1-2 months 10,000-200,000 2-3 months 15,000-100,000 Please note: The intended use of this assay is the quantitative determination of HCG in human serum or plasma for the early detection of . These assays should not be used to diagnose any condition unrelated to . If an HCG level is inconsistent with, or unsupported by, clinical evidence, results should be confirmed by an alternate HCG method. 44 It is recognized that currently available assays for the detection of antibodies to HIV-1 and/or HIV-2 may not detect all infected individuals. HIV antibodies may be undetectable in some stages of the infection and in some clinical conditions. The performance of this assay has not been established for populations of infants or children. Assayed by Chemiluminescence Microparticle Immunoassay on the Siemens Advia Centaur CP. Values obtained with different methods or kits cannot be used interchangeably.The diagnostic specificity of the ADVIA Centaur 1/O/2 Enhanced assay in the low risk population was 99.90% (6052/6058) with a 95% confidence interval of 99.78 to 99.96%. 45 Because ethnic data is not always readily available, this report includes an eGFR for both -Americans and non- Americans. The National Kidney Disease Education Program (NKDEP) does not endorse the use of the MDRD equation for patients that are not between the ages of 18 and 70, are , have extremes of body size, muscle mass, or nutritional status, or are non- or non-. According to the National Kidney Foundation, irrespective of diagnosis, the stage of the disease is based on the level of kidney function: Stage Description GFR(mL/min/1.73 m(2)) 1 Kidney damage with normal or decreased GFR 90 2 Kidney damage with mild decrease in GFR 60-89 3 Moderate decrease in GFR 30-59 4 Severe decrease in GFR 15-29 5 Kidney failure <15 (or dialysis) 46 RUN DATE: 09/25/12 [facility] LAB LIVE PAGE 1 RUN TIME: [address] [place] [address] Specimen Inquiry Name: MICHAEL DELUNA : [address]: Lisa ARAMBULA,Aureliano Bella Acct: [id number] Unit: [id number] AGE: 26 Location: ED Re09/23/12 SEX: F Status: DEP ER SPEC: [id number] MART: 09/23/12-1699 [facility] DR: [facility] REQ: [id number] RECD: 09/23/12 STATUS: COMP DEBBIE DR: Osbaldo Peoples MD Kantor MD,Aureliano Bella _ SOURCE: URINE SPDESC: ORDERED: Urine Culture Procedure Result Verified Site Urine Culture Final 09/25/12- 0850 ML Organism 1 NORMAL RAUL Hertel Count 75-100,000 (Many) CFU/ML END OF REPORT * ML=Testing performed at Main Lab DEPARTMENT OF PATHOLOGY, [address] [place] [address] Laurent Watt M.D. Director [facility] Permit #[id number] 47 2+ (>10-30 /hpf) 48 Effective 08/25/12, bilirubin confirmation by ictotest is discontinued. False-positive results for bilirubin may occur due to color interference from large amounts of blood in the urine, very concentrated urine, or drugs that discolor urine such as phenazopyridine(Pyridium). 49 Test Performed by: [address] [address] Junior Designer: Mateo Pugh III, M.D. 50 It is recognized that currently available assays for the detection of antibodies to HIV-1 and/or HIV-2 may not detect all infected individuals. HIV antibodies may be undetectable in some stages of the infection and in some clinical conditions. The performance of this assay has not been established for populations of infants or children. Assayed by Chemiluminescence Microparticle Immunoassay on the Girly Stuffaur CP. Values obtained with different methods or kits cannot be used interchangeably.The diagnostic specificity of the ADVIA Centaur 1/O/2 Enhanced assay in the low risk population was 99.90% (6052/6058) with a 95% confidence interval of 99.78 to 99.96%. 51 RUN DATE: 06/03/12 [facility] NMI LIVE PAGE 1 RUN TIME: 0800 Specimen Inquiry RUN USER: INTERFACE Name: MICHAEL DELUNA Accjamir#: [id number] Status: REG REF Re06/02/12 Age/Sex: 26/F Unit#: [id number] Location: [facility]. : [birth year] SPEC #: [id number] MART: 06/02/12 STATUS: DONNA REQ #: [id number] RECD: 06/02/[address]: Carolina Pugh NP SOURCE: GENITAL ENTR: 06/02/[address]: BETINAC: UNSPECIFIE ORDERED: BV SMEAR QUERIES: MEDENT REQUISITION # [id number] ACT WKST: GS 06/03/12 #1 Procedure Result Verified Site > BACTERIAL VAGINOSIS SMEAR Final 06/03/12- 0759 ML LACTOBACILLUS Moderate GARDNERELLA None MOBILUNCUS None SMEAR INTERPRETATION Bacterial Vaginosis Not Likely ML - [facility] State Permit #[id number] [facility] [employer] [facility] [address] DEPARTMENT OF PATHOLOGY, [facility] [employer] [place], [place] [address] [facility] Permit #[id number] Laurent Watt M.D. Director [facility] Oliver M.D. [employer] 52 RUN DATE: 06/04/12 [facility] NMI LIVE PAGE 1 RUN TIME: 1310 Specimen Inquiry RUN USER: INTERFACE Name: MICHAEL DELUNA#: [id number] Status: REG REF Re06/02/12 Age/Sex: 26/F Unit#: [id number] Location: [facility] : [birth year] SPEC #: [id number] MART: 06/02/12 STATUS: COMP REQ #: [id number] RECD: 06/02/12 [facility] DR: Carolina Pugh NP SOURCE: ENDOCERVIX ENTR: 06/02/12 [facility] DR: BETINA: ORDERED: GC/CHL APTIMA QUERIES: MEDENT REQUISITION # [id number] ACT WKST: GCCHL 06/04/12 #1 Procedure Result Verified Site > CHLAMYDIA TRACHOMATIS RNA Final 06/04/12- 1310 ML NEGATIVE FOR CHLAMYDIA TRACHOMATIS rRNA A negative result does not preclude the presence of a C.trachomatis or N.gonorrhoeae infection because results are dependent on adequate specimen collection, absence of inhibitors, and sufficient rRNA to be detected. Test results may be affected by improper specimen collection, improper specimen storage, technical error, or specimen mixup. Limitations of the Procedure: The Aptima Combo 2 Assay is not intended for the evaluation of suspected sexual abuse or for other medico-legal indications. For those patients for whom a false positive result may have adverse psychosocial impact, the [facility] recommends retesting by a method using an alternate technology. Therapeutic failure or success cannot be determined with the Aptima Combo 2 Assay since nucleic acid may persist following appropriate antimicrobial therapy. Results from the APTIMA Combo 2 Assay should be interpreted in conjunction with other laboraotry and clinical data available to the clinician. Performance characteristics for detecting C. trachomatis and N. gonorrhoeae are derived from high prevalence populations. Positive results in low prevalence populations should be interpreted carefully with the understanding that the likelihood of a false positive may be higher than a true positive. DEPARTMENT OF PATHOLOGY, [address] [place] [address] [facility] Permit #[id number] Elva Clemens M.D. [employer] RUN DATE: 06/04/12 [facility] NMI LIVE PAGE 2 RUN TIME: 1310 Specimen Inquiry RUN USER: INTERFACE Name: MICHAEL DELUNA Status: REG REF Re06/02/12 Age/Sex: 26/F Unit#: [id number] Location: [facility]. : [birth year] -- -- CONTINU ED Procedure Result Verified Site > GC (N. GONORRHOEAE) RNA Final 06/04/12- 1310 ML NEGATIVE FOR NEISSERIA GONORRHOEAE rRNA A negative result does not preclude the presence of a C.trachomatis or N.gonorrhoeae infection because results are dependent on adequate specimen collection, absence of inhibitors, and sufficient rRNA to be detected. Test results may be affected by improper specimen collection, improper specimen storage, technical error, or specimen mixup. Limitations of the Procedure: The Aptima Combo 2 Assay is not intended for the evaluation of suspected sexual abuse or for other medico-legal indications. For those patients for whom a false positive result may have adverse psychosocial impact, the [facility] recommends retesting by a method using an alternate technology. Therapeutic failure or success cannot be determined with the Aptima Combo 2 Assay since nucleic acid may persist following appropriate antimicrobial therapy. Results from the APTIMA Combo 2 Assay should be interpreted in conjunction with other laboraotry and clinical data available to the clinician. Performance characteristics for detecting C. trachomatis and N. gonorrhoeae are derived from high prevalence populations. Positive results in low prevalence populations should be interpreted carefully with the understanding that the likelihood of a false positive may be higher than a true positive. - [facility] Permit #[id number] [facility] [employer] [place] [address] DEPARTMENT OF PATHOLOGY, [facility] [employer] [place] [address] [place] Permit #[id number] Laurent Watt M.D. Director [place] Oliver M.D. [employer] Observer/Gunner 53 ---- RUN DATE: 06/08/12 [facility] NMI LIVE PAGE 1 RUN TIME: 842 Specimen Inquiry RUN USER: INTERFACE -- Name: MICHAEL DELUNA#: [id number] Status: REG REF Re06/02/12 Age/Sex: 26/F Unit#: [id number] Location: [facility] : [birth year] -- Specimen: [id number] SOUT Spec Date:06/02/12-[address]: Carolina ramesh NP Spec Type: CYTOLOGY Received:06/03/12 Copies to: SOURCE ECTOCERVICAL/ENDOCERVICAL Thin Prep with Reflex HPV Test PATIENT INFORMATION ACTUAL COLLECTION DATE: 06/02/12 ? No POST MENOPAUSAL? No HYSTERECTOMY? No PREVIOUS ABNORMAL PAP SMEARS Yes LAST MENSTRUAL PERIOD: 05/21/12 ADEQUACY OF SPECIMEN Satisfactory for evaluation * Transformation zone component identified * DIAGNOSIS NEGATIVE FOR INTRAEPITHELIAL LESION OR MALIGNANCY * NOTE Specimen sent to [facility] in [place], [place] on 06/03/12 by DB at 1227. Results will be reported separately in an addendum. ADDENDUM Addendum #1 Entered: 06/08/12 [employer] Human Papilloma Virus test results received with preparation and diagnosis completed by [facility], [place], [place]. Results: NEGATIVE High Risk (for types 16, 18, 31, 33, 35, 39, 45, 51, 52, 56, 58, 59, 68) This test was developed and its performance characteristics determined by Laboratory Medicine and Pathology, [facility], [place], [place]. It has not -- DEPARTMENT OF PATHOLOGY, [address] [place] [address] [facility] Permit #[id number] Elva Clemens M.D. Assessment Director hung -- -- RUN DATE: 06/08/12 [facility] NMI LIVE PAGE 2 RUN TIME: 842 Specimen Inquiry RUN USER: INTERFACE -- Name: MICHAEL DELUNA Status: REG REF Re06/02/12 Age/Sex: 26/F Unit#: [id number] Location: [facility] : 81 -- -- CONTINUED -- ADDENDUM (Continued) been cleared or approved by the U.S. Food and Drug Administration. Test Performed by: [facility] Dpt of lab Med and Pathology [address] [place] [address] Junior Designer: Mateo Pugh III, M.D. Original hard copy report from [employer] is available upon request by calling Pathology at [phone]. Addendum Review Tc ENRIQUEZ([facility]) 06/08/12 -- This Pap test was evaluated with the assistance of the NutrisystemPrep Pap Test Imaging System. The Pap Smear is a screening test designed to aid in the detection of premalign ant and malignant conditions of the uterine cervix. It is not a diagnostic procedure a nd should not be used as the sole means of detecting cervical cancer. Both false- positiv e and false-negative reports do occur. Depending on your risk status, a Pap smear max uld be obtained and evaluated every one to three years. Final Interpretation electronically signed by: Tc ENRIQUEZ([facility]) 06/03/12 123 3 -- -- DEPARTMENT OF PATHOLOGY, [address] [place] [address] [facility] Permit #[id number] Laurent Watt M.D. Director Ventura Oliver M.D. Assessment Director Dir hung -- 54 If is still suspected, please repeat test after 48 to 72 hours. . This test detects intact HCG only and is indicated for the early detection of . 55 THE URINE SPECIMEN WAS TESTED AT THE LISTED CUTOFFS: DRUG CLASS TEST LEVEL (NG/ML) AMPHETAMINES 300 BARBITUATES 200 BENZODIAZEPINE METABOLITES 200 COCAINE METABOLITES 300 CANNABINOIDS 25 OPIATES 200 PCP 25 THIS IS A SCREENING PROCEDURE. POSITIVE RESULTS ARE NOT CONFIRMED. SPECIMEN WAS RECEIVED WITHOUT CHAIN OF CUSTODY. RESULTS SHOULD BE USED FOR MEDICAL PURPOSES ONLY. . 56 Anion gap measurement may be of limited value in the presence of any alkalosis, especially in a combined acid base disorder. . 57 A metabolite of Naproxen, O-desmethylnaproxen, has been shown to interfere with the Jendrassik-Kinga method for measuring total bilirubin. Samples from patients who have taken Naproxen have shown spurious elevation in total bilirubin levels. 58 Because ethnic data is not always readily available, this report includes an eGFR for both -Americans and non- Americans. The National Kidney Disease Education Program (NKDEP) does not endorse the use of the MDRD equation for patients that are not between the ages of 18 and 70, are , have extremes of body size, muscle mass, or nutritional status, or are non- or non-. According to the National Kidney Foundation, irrespective of diagnosis, the stage of the disease is based on the level of kidney function: Stage Description GFR(mL/min/1.73 m(2)) 1 Kidney damage with normal or decreased GFR 90 2 Kidney damage with mild decrease in GFR 60-89 3 Moderate decrease in GFR 30-59 4 Severe decrease in GFR 15-29 5 Kidney failure <15 (or dialysis) 59 TOXIC LEVELS: GREATER THAN 150 MCG/ML @ 4HR POST INGEST GREATER THAN 50 MCG/ML @ 12HR POST INGEST The detection limit for ACETAMINOPHEN is 10.0 mcg/ml . Values less than 10.0 mcg/ml cannot be accurately measured. . 60 The detection limit for ETHANOL is 10.0 mg/dl . Values less than 10.0 mg/dl cannot be accurately measured. . 61 The detection limit for SALICYLATE is 4.0 mg/dl. Values less than 4.0 mg/dl cannot be accurately measured. . 62 RUN DATE: 01/04/12 [facility] NMI LIVE PAGE 1 RUN TIME: 1023 Specimen Inquiry RUN USER: INTERFACE Name: MICHAEL DELUNA Status: REG REF Re01/01/12 Age/Sex: 26/F Unit#: [id number] Location: [facility] : 81 SPEC #: [id number] MART: 01/01/12 STATUS: COMP REQ #: [id number] RECD: 01/01/12 [facility] DR: Espinoza ARAMBULA,Irma Mota SOURCE: THROAT ENTR: 01/01/[address]: BLAYNE: ORDERED: THROAT CULTURE QUERIES: MEDENT REQUISITION # [id number] ACT WKST: B 01/04/12 #1 Procedure Result Verified Site > THROAT CULTURE FULL Final 01/04/12- 1023 ML Organism 1 BETA STREP GROUP A Susceptibility testing of penicillins and other B-lactams approved by FDA for treatment of Streptococcus pyogenes (Group A Strep) and Streptococcus agalactiae (Group B Strep) is not necessary for clinical purposes and need not be done routinely, since as with vancomycin, resistant strains have not been recognized. (CLSI G043-T58;p.66) Positive isolates will be saved for one week. Please call the Microbiology Laboratory if further susceptibility testing is needed. QUANTITY FEW Organism 2 NORMAL RAUL QUANTITY FEW FULL THROAT CULTURES ARE CLINICALLY INDICATED TO DETECT THE PRESENCE OF GROUP A STREP, ARCANOBACTERIUM AND YEAST. - [facility] Permit #[id number] [facility] [employer] [place] [address] DEPARTMENT OF PATHOLOGY, [facility] [employer] [place], [place] [address] [facility] Permit #[id number] Laurent Watt M.D. Director Ventura Oliver M.D. [employer]Aerial Observer/Gunner 63 It is recognized that currently available assays for the detection of antibodies to HIV-1 and/or HIV-2 may not detect all infected individuals. HIV antibodies may be undetectable in some stages of the infection and in some clinical conditions. The performance of this assay has not been established for populations of infants or children. Assayed by Chemiluminescence Microparticle Immunoassay on the Linda Advia Centaur CP. Values obtained with different methods or kits cannot be used interchangeably.The diagnostic specificity of the ADVIA Centaur 1/O/2 Enhanced assay in the low risk population was 99.90% (6052/6058) with a 95% confidence interval of 99.78 to 99.96%. 64 Anion gap measurement may be of limited value in the presence of any alkalosis, especially in a combined acid base disorder. . 65 A metabolite of Naproxen, O-desmethylnaproxen, has been shown to interfere with the Jendrassik-[place] method for measuring total bilirubin. Samples from patients who have taken Naproxen have shown spurious elevation in total bilirubin levels. 66 Because ethnic data is not always readily available, this report includes an eGFR for both -Americans and non- Americans. The National Kidney Disease Education Program (NKDEP) does not endorse the use of the MDRD equation for patients that are not between the ages of 18 and 70, are , have extremes of body size, muscle mass, or nutritional status, or are non- or non-. According to the National Kidney Foundation, irrespective of diagnosis, the stage of the disease is based on the level of kidney function: Stage Description GFR(mL/min/1.73 m(2)) 1 Kidney damage with normal or decreased GFR 90 2 Kidney damage with mild decrease in GFR 60-89 3 Moderate decrease in GFR 30-59 4 Severe decrease in GFR 15-29 5 Kidney failure <15 (or dialysis) 67 Test Performed by: [facility] Dpt of Lab Med and Pathology [address] [place], [place] [id number] Junior Designer: Mateo Pugh III, M.D. 68 Please note: New reference range, effective 09/18/11 NORMAL REFERENCE RANGE: GREATER THAN 4.1 NG/ML 69 Imm. NE 1 70 Results suggest response to immunization or prior exposure to the virus. 71 EQUIVOCAL;SUGGEST RETEST WITH ANOTHER SAMPLE IN 14-21 DAYS. 72 Test Performed by: [facility] Dpt of Lab Med and Pathology [address] [place] [address] Junior Designer: Mateo Pugh III, M.D. 73 This test was developed and its performance characteristics determined by Laboratory Medicine and Pathology, [facility]. This test has not been cleared or approved by the U.S. Food and Drug Administration. Test performed by: [facility] [employer] [address] [place], [place] [address] 74 Negative for Bordetella pertussis/parapertussis DNA 75 This test was developed and its performance characteristics determined by Laboratory Medicine and Pathology, [facility]. This test has not been cleared or approved by the U.S. Food and Drug Administration. Test performed by: [facility] [address] [place], [place] [address] 76 Negative for Bordetella pertussis/parapertussis DNA 77 HEMOGLOBIN INTERPRETATION: Cells/ Volume of Maternal Hemorrhage Adult Cells Ratio 0.0 - 0.0045 Up to 15 ml 0.0046 - 0.0090 15 - 30 ml 0.0091 - 0.0135 30 - 45 ml 0.0136 - 0.0180 45 - 60 ml 0.0181 - 0.0225 60 - 75 ml . 78 [id number] GENESIS HOPKINS 12/04/10 1900 79 ---- RUN DATE: 07/11/10 [facility] NMI LIVE PAGE 1 RUN TIME: 7986 Specimen Inquiry RUN USER: INTERFACE -- Name: DELUNA,MICHAEL [facility]#: [id number] Status: REG REF Re07/09/10 Age/Sex: 24/F Unit#: [id number] [facility] [birth year] -- Specimen: [id number] SOUT Spec Date: 07/09/10 [place] [facility] Dr: John guerrero MD Spec Type: SURGICAL P Received: 07/10/10-0755 Copies to: Osbaldo tay MD SPECIMEN 1) MID DUODENAL BIOPSIES 2) GASTRIC BODY BIOPSIES HISTORY POST-OP DIAGNOSIS: Loose hiatus, Normal EGD, B12 deficiency, morbid obesi ty. CLINICAL INFORMATION: Reflux, heartburn, B12 deficiency. GROSS DESCRIPTION 1) The specimen is received in formalin labelled Michael Deluna, Duodenal Biopsies, and consists of two fajardo soft tissue fragments measuring 0.5 x 0.2 x 0.2 cm. in aggregate. Submitted entirely, one cassette. 2) The specimen is received in formalin labelled Michael Deluna, Gastric Body Biopsy, and consists of two fajardo soft tissue fragments measuring 0.5 x 0.2 x 0.1 cm. in aggregate. Submitted entirely, one cassette. DIAGNOSIS 1) Small bowel, duodenum, biopsy: Small bowel mucosa with normal villous architecture and no significant pathologic abnormality. 2) Stomach, body, biopsies: A. Gastric oxyntic gland mucosa with mild nonspecific diffuse chronic inflammation. B. No active gastritis or Helicobacter pylori-like organisms identified. Signed Electronically by: LAURENT WATT MD 07/11/10 1434 -- -- DEPARTMENT OF PATHOLOGY, [address] [place] [address] [facility] Permit #[id number] Laurent Watt M.D. Director Ventura Oliver M.D. Assessment Director Dir merazor -- 80 REFERENCE RANGE: AM 8.7-22.4 PM LESS THAN 10 . 81 -- REFERENCE VALUE -- No abnormal variants 82 RESULT: Normal hemoglobin electrophoresis evaluation. 83 Reflexed test not required 84 Reflexed test not required Test Performed by: [facility] Dpt of Lab Med and Pathology [address] [place] [address] Junior Designer: Mateo Pugh III, M.D. 85 Imm. NE 1 86 Anion gap measurement may be of limited value in the presence of any alkalosis, especially in a combined acid base disorder. . 87 Note change in reference range as of 05/18/08. The change was based on recommendations from the [place] [employer]. 88 A metabolite of Naproxen, O-desmethylnaproxen, has been shown to interfere with the Jendrassik-Kinga method for measuring total bilirubin. Samples from patients who have taken Naproxen have shown spurious elevation in total bilirubin levels. 89 Because ethnic data is not always readily available, this report includes an eGFR for both -Americans and non- Americans. The National Kidney Disease Education Program (NKDEP) does not endorse the use of the MDRD equation for patients that are not between the ages of 18 and 70, are , have extremes of body size, muscle mass, or nutritional status, or are non- or non-. According to the National Kidney Foundation, irrespective of diagnosis, the stage of the disease is based on the level of kidney function: Stage Description GFR(mL/min/1.73 m(2)) 1 Kidney damage with normal or decreased GFR 90 2 Kidney damage with mild decrease in GFR 60-89 3 Moderate decrease in GFR 30-59 4 Severe decrease in GFR 15-29 5 Kidney failure <15 (or dialysis) 90 SPECIMEN CONTAINS NORMAL URETHRAL OR PERINEAL RAUL AND DOES NOT SUGGEST URINARY TRACT INFECTION 91 Anion gap measurement may be of limited value in the presence of any alkalosis, especially in a combined acid base disorder. . 92 Note change in reference range as of 05/18/08. The change was based on recommendations from the [place] [employer]. 93 Please note change in reference range effective 08 . 94 A metabolite of Naproxen, O-desmethylnaproxen, has been shown to interfere with the Jendrassik-Kinga method for measuring total bilirubin. Samples from patients who have taken Naproxen have shown spurious elevation in total bilirubin levels. 95 Because ethnic data is not always readily available, this report includes an eGFR for both -Americans and non- Americans. The National Kidney Disease Education Program (NKDEP) does not endorse the use of the MDRD equation for patients that are not between the ages of 18 and 70, are , have extremes of body size, muscle mass, or nutritional status, or are non- or non-. According to the National Kidney Foundation, irrespective of diagnosis, the stage of the disease is based on the level of kidney function: Stage Description GFR(mL/min/1.73 m(2)) 1 Kidney damage with normal or decreased GFR 90 2 Kidney damage with mild decrease in GFR 60-89 3 Moderate decrease in GFR 30-59 4 Severe decrease in GFR 15-29 5 Kidney failure <15 (or dialysis) 96 BUDDING YEAST PRESENT 97 75^50-75,000 ORGANISMS/ML (MANY)^CCU 98 Anion gap measurement may be of limited value in the presence of any alkalosis, especially in a combined acid base disorder. . 99 Note change in reference range as of 05/18/08. The change was based on recommendations from the [place] [employer]. 100 Please note change in reference range effective 08 . 101 A metabolite of Naproxen, O-desmethylnaproxen, has been shown to interfere with the Jendrassik-[place] method for measuring total bilirubin. Samples from patients who have taken Naproxen have shown spurious elevation in total bilirubin levels. 102 Because ethnic data is not always readily available, this report includes an eGFR for both -Americans and non- Americans. The National Kidney Disease Education Program (NKDEP) does not endorse the use of the MDRD equation for patients that are not between the ages of 18 and 70, are , have extremes of body size, muscle mass, or nutritional status, or are non- or non-. According to the National Kidney Foundation, irrespective of diagnosis, the stage of the disease is based on the level of kidney function: Stage Description GFR(mL/min/1.73 m(2)) 1 Kidney damage with normal or decreased GFR 90 2 Kidney damage with mild decrease in GFR 60-89 3 Moderate decrease in GFR 30-59 4 Severe decrease in GFR 15-29 5 Kidney failure <15 (or dialysis) Procedures Date Code Description Status 11/29/2013 28975 Admin Of Inj Completed 02/23/2013 36189 Admin Of Inj Completed 09/03/2011 79484 Noninvasive Ear Or Pulse Oximetry For Oxygen Saturation Completed 12/09/2010 77795 Admin Of Inj Completed 11/11/2010 08329 Admin Of Inj Completed 10/10/2010 99599 Admin Of Inj Completed 08/27/2010 28883 Rad Exam; Hand Comp Completed 08/27/2010 46877 Short Arm Splint Application Completed 08/20/2010 49383 Rad Exam; Hand Comp Completed 08/15/2010 07001 Admin Of Inj Completed 08/06/2010 73003 Closed TX Metacarpal FX Single W/O Manipulation, Ea Bone Completed 07/18/2010 24874 Admin Of Inj Completed 07/11/2010 40812 Admin Of Inj Completed 07/04/2010 11158 Admin Of Inj Completed 06/27/2010 65862 Admin Of Inj Completed 04/26/2010 24199 Noninvasive Ear Or Pulse Oximetry For Oxygen Saturation Completed 10/12/2009 76716 Inhalation TX For Acute Airway Obstruction Completed W/Nebulizer/Inhaler 10/04/2009 01384 Inhalation TX For Acute Airway Obstruction Completed W/Nebulizer/Inhaler Encounters Type Date Location Provider Dx Diagnosis Office Visit 07/24/2017 [facility] Nic Cole, M62.81 Muscle weakness 3:20p (generalized) R20.0 Anesthesia of skin M54.2 Cervicalgia Office Visit 07/01/2016 2:00p [facility] Internal Aureliano Diaz M54.2 Cervicalgia Medicine - MRomel Leonard Office Visit 05/23/2016 11:00a [facility] Internal Osbaldo Peoples M54.2 Cervicalgia Medicine - [address] [place] Office Visit 05/08/2016 4:00p [facility] Internal Osbaldo Peoples M54.2 Cervicalgia Medicine - [address] [place] M54.5 Low back pain Office Visit 04/17/2016 [facility] Internal Obsaldo M54.2 Cervicalgia 11:40a Trace Peoples M.D. [address] Office Visit 04/10/2016 [facility] Ramandeep Roblero M54.2 Cervicalgia 4:00p Trace Peoples M.D. [address] Office Visit 12/04/2015 [facility] Internal Aquilino Villalobos NP J00 Acute nasopharyngitis 12:40p Medicine - [common cold] [address] R05 Cough Office Visit 04/02/2015 10:00a [facility] Internal Aquilino Villalobos, V70.3 Examination Other Medicine - ELECTRONIC PAGE [employer]UP SYSTEM OPERATOR Medical For [address] Administrative Purpose 346.11 Migraine W/O Aura W/Intractable W/O Status Migrainosus 278.01 Obesity Morbid 281.1 Vitamin B12 Deficiency Anemia Other V77.1 Screening Diabetes Mellitus V77.91 Screening For Lipoid Disorders V74.1 Screening Examination Pulmonary Tuberculosis 786.09 Dyspnea & Respiratory Abnormalities Other V70.5 Examination Health Of Defined Subpopulations Office Visit 11/22/2014 10:30a [facility] Internal Nic Chu, ELECTRONIC [employer]UP SYSTEM OPERATOR 786.2 Cough Medicine - [address] Office Visit 11/15/2014 11:00a [facility] Internal Aquilino Villalobos, 466.0 Bronchitis Acute Medicine - [address] [employer] OPER[employer] [address] 786.2 Cough 786.07 Wheezing Office Visit 10/17/2014 11:00a [facility] Internal Nic Chu, 465.8 Upper Respiratory Medicine - [employer] OPERATOR Infections Acute [place] Other Multiple Sites V73.99 Screening Examination Viral Disease Unspec 465.9 URI Upper Respiratory Infections Acute Unspec Sites Office Visit 03/02/2014 9:30a [facility] Internal aSlome Johns, V70.0 Examination Medicine - N.P. 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 W/Intractable W/O Services Of [facility] Status Migrainosus 787.01 Nausea W/ Vomiting V22.2 State Incidental Normal Office Visit 12/07/2013 [facility] Carroll Cummins 346.11 Migraine W/ O Aura 12:43p rima Church II, M.D. W/Intractable W/O Hospitalists Status Migrainosus 278.01 Obesity Morbid V22.2 State Incidental Normal Office Visit 02/23/2013 9:40a [facility] Internal Osbaldo Peoples, 466.0 Bronchitis Acute Medicine - MRomel [place] 285.8 Anemia Other Spec 281.1 Vitamin B12 Deficiency Anemia Other Office Visit 02/09/2013 2:20p [facility] Internal Osbaldo 530.81 Esophageal Trace Peoples M.D. Reflux [place] 285.8 Anemia Other Spec 448.1 Nevus Non-Neoplastic 780.79 Malaise And Fatigue Other v65.44 Human Immunodeficiency Virus (HIV) Counseling V74.1 Screening Examination Pulmonary Tuberculosis Office Visit 10/11/2012 12:10p [facility] Internal [place] 845.00 Sprains & Strains Medicine Layla Borja M.D. Ankle Unspec Site [place] Office Visit 06/02/2012 11:30a [facility] Internal [place] V72.31 Routine Dietetics Teacher Medicine - [place] Examination Shabana , N.P. V69.2 Sexual Behavior High Risk 616.10 Vaginitis & Vulvovaginitis Unspec Office Visit 01/01/2012 10:00a [facility] Internal Irma Doran, 461.9 Sinusitis Acute Trace Rich M.D. Unspec [place] 462 Pharyngitis Acute Office Visit 12/09/2011 [facility] Internal Osbaldo 558.9 Gastroenteritis & 1:40p Trace Peoples M.D. Colitis [place] Noninfectious Other Office Visit 12/02/2011 [facility] Internal Osbaldo 009.0 Infectious Colitis 2:20p Trace Peoples M.D. Enteritis & [place] Gastroenteritis Office Visit 11/24/2011 [facility] Internal Osbaldo 281.1 Vitamin B12 4:00p Trace Peoples M.D. Deficiency Anemia [place] Other 285.8 Anemia Other Spec 346.92 Migraine Unspecified, W/Out Mention Intractable Migraine Office Visit 09/03/2011 1:00p DO Not Use Probate Paralegal AT Osbaldo Peoples M.D. 786.2 Cough [facility] 784.49 Other Voice And Resonance Disorders Office Visit 08/15/2011 3:00p DO Not Use Probate Paralegal Nurse Visit V72.62 Laboratory Exam AT [facility] Ordered as Part Of Routine General Med Exam Office Visit 08/13/2011 11:20a DO Not Use Devi Roblero 786.2 Cough AT [facility] V72.62 Laboratory Exam Ordered as Part Of Routine General Med Exam 448.1 Nevus Non-Neoplastic v04.81 Need For Prophylactic Vaccination & Inoculation/Influenza v74.1 Screening Examination Pulmonary Tuberculosis 530.81 Esophageal Reflux V70.0 Examination General Medical Routine AT Health Care Facility Office Visit 07/30/2011 3:20p DO Not Use Probate Paralegal [place], 466.0 Bronchitis Acute AT [facility] v74.1 Screening Examination Pulmonary Tuberculosis Office Visit 01/28/2011 1:00p DO Not Use Probate Paralegal [place], 311 Depressive AT [facility] Disorder Not Elsewhere Spec 466.0 Bronchitis Acute 346.93 Migraine Unspecified, W/Intractable Migraine 780.52 Insomnia Unspecified 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 285.8 Anemia Other Spec Office Visit 10/29/2010 1:20p DO Not Use Probate Paralegal [place] 780.52 [facility] 530.81 Esophageal Reflux 327.23 Obstructive Sleep Apnea Adult & Pediatric 346.93 Migraine Unspecified, W/Intractable Migraine Office Visit 08/12/2010 2:00p DO Not Use Probate Paralegal Osbaldo [place], 300.09 Anxiety States AT [facility] Other 780.52 Insomnia Unspecified 530.81 Esophageal Reflux Office Visit 07/29/2010 2:40p DO Not Use Probate Paralegal [place], 780.79 Malaise And AT [facility] Fatigue Other 300.09 Anxiety States Other 780.52 Insomnia Unspecified 327.23 Obstructive Sleep Apnea Adult & Pediatric 530.81 Esophageal Reflux Office Visit 07/02/2010 2:45p DO Not Use Probate Paralegal AT [facility], 724.2 Lumbago [facility] 346.93 Migraine Unspecified, W/Intractable Migraine V70.0 Examination General Medical Routine AT Health Care Facility Office Visit 06/27/2010 2:40p DO Not Use Probate Paralegal Osbaldo [place], 281.1 Vitamin B12 AT [facility] Deficiency Anemia Other 785.6 Lymph Nodes Enlargement 787.91 Diarrhea 780.79 Malaise And Fatigue Other 724.2 Lumbago 300.01 Panic Disorder W/O Agoraphobia 346.93 Migraine Unspecified, W/Intractable Migraine V04.81 Need For Prophylactic Vaccination & Inoculation/Influenza Office Visit 06/13/2010 3:40p DO Not Use Probate Paralegal Osbaldo [place], 785.6 Lymph Nodes AT [facility] M.D. Enlargement 285.8 Anemia Other Spec 300.01 Panic Disorder W/O Agoraphobia Office Visit 04/26/2010 1:00p DO Not Use Probate Paralegal Sivananda, 466.0 Bronchitis Acute AT [facility] MD [place] 626.0 Menstruation Absence Office Visit 01/11/2010 1:45p DO Not Use Probate Paralegal Murli Noel, 780.79 Malaise And AT [facility] Fatigue Other 626.0 Menstruation Absence Office Visit 10/15/2009 4:00p DO Not Use Probate Paralegal Murli Noel, 493.90 Asthma [facility] Status Asthmaticus 786.2 Cough Office Visit 10/12/2009 11:45a DO Not Use Probate Paralegal Murli Noel, 493.90 Asthma Unspec [facility] Asthmaticus Office Visit 10/04/2009 10:00a DO Not Use Probate Paralegal Murli Noel, 493.90 Asthma Unspec [facility] Ast[facility]us Plan of Treatment Future Appointment(s):02/16/2019 11:20 am - Brooke Shipman MD at [facility] Internal Medicine [facility]12/15/2018 - Brooke Shipman MDN83.202 Unspecified ovarian cyst , left sideComments:follow up with Dr. Max51.9 Vitamin B12 deficiency anemia, unspecifiedFollow up:next available for AWVZ00.00 Encounter for general adult medical examination without abnoComments:return for annual physical after fasting labs
[2019-01-01 20:49] VITALS: BP 114/65
--- NOTE | 2019-01-01 21:07 | UC ---
Lower Extremity/Ankle HPI - HPI Summary HPI Summary: RIGHT FOOT INJURY. ON 12/21/18 PT WAS WALKING IN A PARKING LOT AND ROLLED HER ANKLE. PAIN IS NOT IMPROVING. PAIN AND MILD SWELLING LATERAL ASPECT OF RIGHT FOOT. - History of Current Complaint Chief Complaint: UCLowerExtremity Stated Complaint: RIGHT FOOT PAIN Time Seen by Provider: 01/01/19 20:47 Hx Obtained From: Patient Hx Last Menstrual Period: 12/12/18 ?: No Onset/Duration: Sudden Onset, Lasting Days Severity Initially: Severe Severity Currently: Severe Pain Intensity: 8 Aggravating Factor(s): Standing, Ambulation Alleviating Factor(s): Rest Able to Bear Weight: Yes - but painful - Allergies/Home Medications Allergies/Adverse Reactions: Allergies Allergy/AdvReac Type Severity Reaction Status Date / Time Adhesive Tape Allergy Rash Verified 01/01/19 20:41 azithromycin Allergy Hives Verified 07/26/18 18:34 bupropion [From Wellbutrin] Allergy See Comment Verified 01/01/19 20:41 ciprofloxacin Allergy Unknown Verified 01/01/19 20:41 Reaction Details PMH/Surg Hx/FS Hx/Imm Hx Previously Healthy: Yes Other History Of: Negative For: Anticoagulant Therapy - Surgical History Surgical History: Yes Surgery Procedure, Year, and Place: CHOLECYSTECTOMY 2007, APPENDECTOMY 1986,. C -SECTIONS [id number],2013. LEFT ANKLE 1996. D&C 2010 - Family History Known Family History: Positive: Cardiac Disease, Hypertension, Diabetes, Other - CVA - Social History Alcohol Use: Rare Alcohol Amount: states that she has consumed 3 times, and something bad always happens. Substance Use Type: None Substance Use Comment - Amount & Last Used: "once in a while" Unsure of last time used Smoking Status (MU): Former Smoker Amount Used/How Often: 1/3 PPD Have You Smoked in the Last Year: Yes When Did the Patient Quit Smoking/Using Tobacco: 11/15/18 - Immunization History Most Recent Influenza Vaccination: UNK Most Recent Tetanus Shot: UNK Most Recent Pneumonia Vaccination: UNK Review of Systems All Other Systems Reviewed And Are Negative: Yes Constitutional: Positive: Negative Skin: Positive: Negative Eyes: Positive: Negative ENT: Positive: Negative Respiratory: Positive: Negative Cardiovascular: Positive: Negative Gastrointestinal: Positive: Negative Genitourinary: Positive: Negative Motor: Positive: Negative Neurovascular: Positive: Negative Musculoskeletal: Positive: Arthralgia, Decreased ROM, Edema, Myalgia Neurological: Positive: Negative Psychological: Positive: Negative Is Patient Immunocompromised?: No Physical Exam Triage Information Reviewed: Yes Appearance: Well-Appearing, Well-Nourished, Pain Distress Vital Signs: Initial Vital Signs Temp 98.1 F 01/01/19 20:41 Pulse 83 01/01/19 20:41 Resp 20 01/01/19 20:41 BP 114/65 01/01/19 20:41 Pulse Ox 99 01/01/19 20:41 Vital Signs Reviewed: Yes Eye Exam: Normal ENT Exam: Normal Dental Exam: Normal Neck exam: Normal Neck: Positive: Supple, Nontender, No Lymphadenopathy Respiratory Exam: Normal Cardiovascular Exam: Normal Cardiovascular: Positive: RRR, No Murmur, Pulses Normal Abdominal Exam: Normal Bowel Sounds: Positive: Present Musculoskeletal: Positive: Strength Intact, ROM Limited @ - in INV and EVR due to pain, Edema @ - mild edema over the 5th met Neurological Exam: Normal Psychological Exam: Normal Skin Exam: Normal Lower Extremity Course/Dx - Course Course Of Treatment: hx obtained, exam performed ,meds reviewed, xray obtained and is negative, post op shoe and valdo applied - Differential Dx/Diagnosis Differential Diagnosis/HQI/PQRI: Contusion, Fracture (Closed), Sprain, Strain Provider Diagnosis: Sprain of right foot Discharge - Sign-Out/Discharge Documenting (check all that apply): Patient Departure All imaging exams completed and their final reports reviewed: No - Discharge Plan Condition: Stable Disposition: HOME Patient Education Materials: Foot Sprain (ED) Referrals: Ronal Be MD [Primary Care Provider] - Carlitos Figueroa MD [Medical Doctor] - Additional Instructions: 1. rest 2. elevate 3. use the valdo wrap and the post op shoe 4. Soak the foot 2 times a day for 7 days 5. follow up if not improving with this treatment - Billing Disposition and Condition Condition: STABLE Disposition: Home
--- NOTE | 2019-01-02 11:08 | UC ---
- Progress Note Progress Note: Please notify patient of XR reading should follow up with Dr. Figueroa in a day or two - EKG/XRAY/CT Xray Comments: MPRESSION: THERE IS SOFT TISSUE SWELLING OVERLYING THE LATERAL RIGHT ANKLE Course/Dx - Diagnoses Provider Diagnoses: Sprain of right foot Discharge - Sign-Out/Discharge Documenting (check all that apply): Post-Discharge Follow Up All imaging exams completed and their final reports reviewed: Yes - Discharge Plan Condition: Stable Disposition: HOME Patient Education Materials: Foot Sprain (ED) Referrals: Carlitos Figueroa MD [Medical Doctor] - Ronal Be MD [Primary Care Provider] - Additional Instructions: 1. rest 2. elevate 3. use the valdo wrap and the post op shoe 4. Soak the foot 2 times a day for 7 days 5. follow up if not improving with this treatment - Billing Disposition and Condition Condition: STABLE Disposition: Home
== END 2019-01-01 21:50 | disposition home or self-care (01) ==
LOC: UCCORT 19:45
DX: S93.601A Unspecified sprain of right foot, initial encounter (principal); Z91.09 Other allergy status, other than to drugs and biological substances; Z87.891 Personal history of nicotine dependence; Z88.8 Allergy status to other drugs, medicaments and biological substances; Z88.1 Allergy status to other antibiotic agents; X50.0XXA Overexertion from strenuous movement or load, initial encounter; Y93.01 Activity, walking, marching and hiking; Y92.481 Parking lot as the place of occurrence of the external cause
CPT/HCPCS: 99213; G0463

== ENCOUNTER 2019-01-25 16:27 | Emergency (ER) | payer MEDICAID, OTHER ==
[2019-01-25 18:15] VITALS: BP 125/54
--- NOTE | 2019-01-25 18:43 | ED ---
GI/ HPI - HPI Summary HPI Summary: 33 yr female with dysuria, onset today. She feels she has a UTI. She denies frequency, urgency. She denies fever, chills, back pain and abdominal pain. She has had some nausea. - History of Current Complaint Chief Complaint: UCGU Time Seen by Provider: 01/25/19 18:18 Stated Complaint: URINARY Hx Last Menstrual Period: 01/03/19 Pain Intensity: 0 - Allergy/Home Medications Allergies/Adverse Reactions: Allergies Allergy/AdvReac Type Severity Reaction Status Date / Time Adhesive Tape Allergy Rash Verified 01/25/19 18:08 azithromycin Allergy Hives Verified 01/25/19 18:08 bupropion [From Wellbutrin] Allergy See Comment Verified 01/25/19 18:08 ciprofloxacin Allergy Unknown Verified 01/25/19 18:08 Reaction Details PMH/Surg Hx/FS Hx/Imm Hx Endocrine/Hematology History: Denies: Hx Anticoagulant Therapy, Hx Diabetes, Hx Thyroid Disease Cardiovascular History: Denies: Hx Hypertension, Hx Pacemaker/ICD Respiratory History: Denies: Hx Asthma, Hx Chronic Obstructive Pulmonary Disease (COPD) GI History: Denies: Hx Ulcer History: Denies: Hx Renal Disease Sensory History: Denies: Hx Hearing Aid Neurological History: Denies: Hx Dementia, Hx Seizures Psychiatric History: Reports: Hx Anxiety - "just after miscarriage", Hx Depression - "I'm not depressed. I'm just overwhelmed and stressed out.", Hx Inpatient Treatment - [facility], [facility] - [facility]. [facility], Suicide Attempt - this is what caused the [facility] inpatient stay, Hx of Violent Episodes Against Others - Only in self defense against FOB Denies: Hx Attention Deficit Hyperactivity Disorder, Hx Eating Disorder, Hx Panic Disorder, Hx Post Traumatic Stress Disorder, Hx Schizophrenia, Hx Bipolar Disorder, Hx Substance Abuse, Other Psychiatric Issues/Disorders - Cancer History Cancer Type, Location and Year: gb removed 2007 app- 1986 [id number] - Surgical History Surgery Procedure, Year, and Place: CHOLECYSTECTOMY 2007, APPENDECTOMY 1986,. C -SECTIONS 3147-9956,2014. LEFT ANKLE 1996. D&C 2010 Infectious Disease History: Yes Infectious Disease History: Reports: Hx Clostridium Difficile, Hx of Known/ Suspected MRSA Denies: Hx Hepatitis, Hx Human Immunodeficiency Virus (HIV), Hx Shingles, Hx Tuberculosis, Hx Known/Suspected VRE, Hx Known/Suspected VRSA, History Other Infectious Disease, Traveled Outside the [place] in Last 30 Days - Family History Known Family History: Positive: Cardiac Disease, Hypertension, Diabetes, Other - CVA, Non-Contributory - Social History Alcohol Use: Rare Alcohol Amount: states that she has consumed 3 times, and something bad always happens. Hx Substance Use: No Substance Use Type: Reports: None Substance Use Comment - Amount & Last Used: "once in a while" Unsure of last time used Hx Tobacco Use: Yes Smoking Status (MU): Former Smoker Amount Used/How Often: 1/3 PPD Have You Smoked in the Last Year: Yes Review of Systems Positive: Chills Positive: dysuria All Other Systems Reviewed And Are Negative: Yes Physical Exam Triage Information Reviewed: Yes Vital Signs On Initial Exam: Initial Vitals Temp Pulse Resp BP Pulse Ox 97.5 F 87 16 125/54 100 01/25/19 18:09 01/25/19 18:09 01/25/19 18:09 01/25/19 18:09 01/25/19 18:09 Vital Signs Reviewed: Yes Appearance: Positive: Well-Appearing, No Pain Distress Skin: Positive: Warm, Skin Color Reflects Adequate Perfusion Head/Face: Positive: Normal Head/Face Inspection Eyes: Positive: EOMI, ISIDORO ENT: Positive: Pharynx normal Neck: Positive: Nontender Respiratory/Lung Sounds: Positive: Clear to Auscultation, Breath Sounds Present Cardiovascular: Positive: RRR. Negative: Murmur Abdomen Description: Positive: Nontender. Negative: CVA Tenderness (R), CVA Tenderness (L), Distended Neurological: Positive: Sensory/Motor Intact, Alert, Oriented to Person Place, Time, CN Intact II-III Psychiatric: Positive: Normal - [place] Coma Scale Best Eye Response: 4 - Spontaneous Best Motor Response: 6 - Obeys Commands Best Verbal Response: 5 - Oriented Coma Scale Total: 15 Diagnostics - Vital Signs Vital Signs Temp Pulse Resp BP Pulse Ox 01/25/19 18:09 97.5 F 87 16 125/54 100 - Laboratory Lab Results: Lab Results 01/25/19 01/25/19 Range/Units 18:23 18:29 POC Urine Color Yellow POC Urine Clarity Cloudy POC Urine pH 6.5 (5-9) POC Ur Specif [place] 1.025 (1.010-1.030) POC Urine Protein 3+ A (Negative) POC Ur Glucose (UA) Negative (Negative) POC Urine Ketones Negative (Negative) POC Urine Blood 2+ A (Negative) POC Urine Nitrite Negative (Negative) POC Urine Bilirubin Negative (Negative) POC Urine Urobilinogen 0.2 (Negative) POC U Leukocyte Esteras 3+ A (Negative) POC Ur Test Negative (Negative) Lab Statement: Any lab studies that have been ordered have been reviewed, and results considered in the medical decision making process. GIGU Course/Dx - Course Course Of Treatment: 33 yr old with UTI symptoms. Rx with macrobid. - Diagnoses Provider Diagnoses: UTI (urinary tract infection) Discharge - Sign-Out/Discharge Documenting (check all that apply): Patient Departure All imaging exams completed and their final reports reviewed: No Studies - Discharge Plan Condition: Good Disposition: HOME Prescriptions: Nitrofurantoin Monohyd/M-Cryst [Macrobid 100 mg Capsule] 100 mg PO BID #14 cap Patient Education Materials: Urinary Tract Infection in Women (DC) Referrals: Ronal Be MD [Primary Care Provider] - 2 Days - Billing Disposition and Condition Condition: GOOD Disposition: Home
== END 2019-01-25 18:49 | disposition home or self-care (01) ==
LOC: UCCORT 16:27
DX: N39.0 Urinary tract infection, site not specified (principal); R11.0 Nausea; F41.9 Anxiety disorder, unspecified; F32.9 Major depressive disorder, single episode, unspecified; Z90.49 Acquired absence of other specified parts of digestive tract; Z90.89 Acquired absence of other organs; Z88.1 Allergy status to other antibiotic agents; Z88.8 Allergy status to other drugs, medicaments and biological substances; Z91.048 Other nonmedicinal substance allergy status; Z87.891 Personal history of nicotine dependence
CPT/HCPCS: 81003; 84702; 87086; 99212; G0463

== ENCOUNTER 2019-08-09 12:19 | Emergency (ER) | payer OTHER ==
[2019-08-09 12:59] VITALS: BP 133/59
[2019-08-09] MEDS ORDERED: Ibuprofen TAB* 600 MG PO ONE (13:08)
--- NOTE | 2019-08-09 13:14 | UC ---
Throat Pain/Nasal Chris HPI - HPI Summary HPI Summary: Patient is a 33yo female presenting with sinus congestion and sinus pressure x2 days and sore throat and mild dry cough since this morning. Cough is nonproductive. Denies ear pain. Denies SOB and wheezing. Denies n/v/d. Denies fever. Notes chills. Notes headache. 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 anything." - History of Current Complaint Chief Complaint: UCRespiratory Stated Complaint: COUGH SORE THROAT Hx Obtained From: Patient Hx Last Menstrual Period: 07/22/19 Onset/Duration: Gradual Onset, Lasting Days Severity: Moderate Pain Intensity: 6 Pain Scale Used: 0-10 Numeric - Allergies/Home Medications Allergies/Adverse Reactions: Allergies Allergy/AdvReac Type Severity Reaction Status Date / Time Adhesive Tape Allergy Rash Verified 08/09/19 12:51 azithromycin Allergy Hives Verified 08/09/19 12:51 bupropion [From Wellbutrin] Allergy See Comment Verified 08/09/19 12:51 ciprofloxacin Allergy Unknown Verified 08/09/19 12:51 Reaction Details Home Medications: Home Medications NK [No Home Medications Reported] 08/09/19 [History Confirmed 08/09/19] PMH/Surg Hx/FS Hx/Imm Hx Other History Of: Negative For: Anticoagulant Therapy - Surgical History Surgical History: Yes Surgery Procedure, Year, and Place: CHOLECYSTECTOMY 2007, APPENDECTOMY 1986,. C -SECTIONS [id number],2014. LEFT ANKLE 1996. D&C 2010 - Family History Known Family History: Positive: Cardiac Disease, Hypertension, Diabetes, Other - CVA, Non-Contributory - Social History Alcohol Use: Rare Alcohol Amount: states that she has consumed 3 times, and something bad always happens. Substance Use Type: Marijuana Substance Use Comment - Amount & Last Used: 08/08/19 Smoking Status (MU): Light Every Day Tobacco Smoker Amount Used/How Often: 1/3 PPD Have You Smoked in the Last Year: Yes When Did the Patient Quit Smoking/Using Tobacco: 11/15/18 - Immunization History Most Recent Influenza Vaccination: UNK Most Recent Tetanus Shot: UNK Most Recent Pneumonia Vaccination: UNK Review of Systems All Other Systems Reviewed And Are Negative: Yes Constitutional: Positive: Chills. Negative: Fever ENT: Positive: Sore Throat, Sinus Congestion, Sinus Pain/Tenderness. Negative: Ear Ache, Nasal Discharge Respiratory: Positive: Cough - dry. Negative: Shortness Of Breath Cardiovascular: Positive: Negative Gastrointestinal: Positive: Negative Musculoskeletal: Negative: Myalgia Neurological: Positive: Headache Physical Exam Triage Information Reviewed: Yes Appearance: No Pain Distress, Well-Nourished, Ill-Appearing Vital Signs: Initial Vital Signs Temp 98.3 F 08/09/19 12:52 Pulse 74 08/09/19 12:52 Resp 22 08/09/19 12:52 BP 133/59 08/09/19 12:52 Pulse Ox 100 08/09/19 12:52 Lab Results 08/09/19 Range/Units 13:16 Group A Strep Rapid Negative (Negative) Vital Signs Reviewed: Yes Eyes: Positive: Conjunctiva Clear ENT: Positive: Hearing grossly normal, Pharyngeal erythema, Nasal congestion, TMs normal, Uvula midline. Negative: Nasal drainage, Tonsillar swelling, Tonsillar exudate Neck exam: Normal Neck: Positive: Supple, No Lymphadenopathy, Tenderness @ - submandibular Respiratory Exam: Normal Respiratory: Positive: Lungs clear, Normal breath sounds, No respiratory distress. Negative: Crackles, Rhonchi, Wheezing Cardiovascular Exam: Normal Cardiovascular: Positive: RRR Neurological: Positive: Alert Psychological: Positive: Age Appropriate Behavior Throat Pain/Nasal Course/Dx - Course Course Of Treatment: Discussed negative strep test with patient and likely viral etiology of symptoms. Instructed to continue with symptomatic treatment and to follow up with PCP if symptoms persist. Patient voiced understanding and agreed with treatment plan. - Differential Dx/Diagnosis Provider Diagnosis: Nasal sinus congestion, Pharyngitis Discharge ED - Sign-Out/Discharge Documenting (check all that apply): Patient Departure All imaging exams completed and their final reports reviewed: No Studies - Discharge Plan Condition: Stable Disposition: HOME Patient Education Materials: Cold Symptoms (ED) Forms: *Work Release Referrals: Brooke Shipman MD [Primary Care Provider] - If Needed Additional Instructions: Your strep test was negative today and your symptoms are likely caused by a virus. You may take mucinex and flonase for congestion relief. You may use throat lozenges and throat sprays for relief of sore throat. You may take ibuprofen as directed for pain relief. Get plenty of rest and increase your fluid intake. Follow up with your primary care doctor if your symptoms worsen or do not resolve within 7 days. - Billing Disposition and Condition Condition: STABLE Disposition: Home
== END 2019-08-09 13:38 | disposition home or self-care (01) ==
LOC: UCCORT 12:19
DX: J02.9 Acute pharyngitis, unspecified (principal); R09.81 Nasal congestion; R09.89 Other specified symptoms and signs involving the circulatory and respiratory systems; R51 Headache; F17.210 Nicotine dependence, cigarettes, uncomplicated; Z91.09 Other allergy status, other than to drugs and biological substances; Z88.1 Allergy status to other antibiotic agents; Z88.8 Allergy status to other drugs, medicaments and biological substances
CPT/HCPCS: 87651; 99212; A9270-GY; G0463

== ENCOUNTER 2024-02-28 20:40 | Observation (INO) ==
[2024-02-28] MEDS: Dexamethasone IV 4 MG/ML VIAL 1 ml VIAL IV SLOW PU ONE (20:44)
[2024-02-28] MEDS ORDERED: Dexamethasone IV 4 MG/ML VIAL 1 ml VIAL ONE (20:44)
[2024-02-28] MEDS: Famotidine IV 10 MG/ML 2 ml VIAL (20 mg) IV SLOW PU ONE (20:53)
[2024-02-28] MEDS: NS 0.9% 1000 ml BAG 1,000 ML IV ONE (21:11)
[2024-02-28] MEDS: methylPREDNISolone SOD SUCC 125 mg 2 ML VIAL IV ONE (21:17)
[2024-02-28 21:24] LABS: ABS Eosinophils 0.1 10^3/uL (0.0-0.5); ABS Lymphocytes 3.1 10^3/uL (1.0-4.8); ABS Monocytes 0.6 10^3/uL (0.0-0.9); ABS Neutrophils 6.1 10^3/uL (1.5-7.6); Eosinophil % 0.5 %; Hematocrit 36.6 % (35-45); Hemoglobin 12.5 g/dL (11.5-14.3); Lymphocyte % 31.5 %; Mean Corpuscular Hgb Conc 34.1 g/dL (31-36); Mean Corpuscular Volume 93.7 fL (80-97); Mean Platelet Volume 8.3 fL (7.5-11.2); Platelet Count 336 10^3/uL (150-450); White Blood Count 9.9 10^3/uL (3.8-11.8)
[2024-02-28 22:15] LABS: Albumin 3.5 g/dL (3.2-5.2); Albumin/Globulin Ratio 1.7 (1-3); Creatinine, Serum 0.81 mg/dL (0.51-0.95); Globulin 2.1 g/dL (2-4); Potassium 3.9 mmol/L (3.5-5.0); Total Bilirubin 0.3 mg/dL (0.2-1.0); Total Protein 5.6 g/dL (6.4-8.9); eGFR CKD-EPI 94.1 (>60)
[2024-02-29 11:58] VITALS: BP 124/66
== END 2024-02-29 15:10 | disposition home or self-care (01) ==
LOC: ED 20:40 → EDHOLD 20:40 → MED 02-29 00:33
PROVIDERS: ADMIT Internal Medicine; ATTEND Internal Medicine